=== PATIENT | male | born 1960 | race Caucasian/White ===

== ENCOUNTER 2016-09-27 05:46 | Inpatient (IN) | payer MEDICAID ==
[2016-09-27] MEDS ORDERED: ONDANSETRON DISINTEGRATING 4 MG TAB ONE (05:55)
[2016-09-27] MEDS ORDERED: ONDANSETRON 4 MG/2 ML VIAL ONE (05:56)
[2016-09-27 06:15] LABS: % IMMATURE GRANULYOCYTES 0.4 % (0.0-1.1); ABSOLUTE IMMATURE GRANULOCYTES 0.04 10^3/uL (0.00-0.10); ADD DIFF? NO; ADD MORPH? NO; ADD SCAN? NO; ATYPICAL LYMPHOCYTE FLAG 0 (0-99); FRAGMENT RBC FLAG 0 (0-99); HEMATOCRIT 40.1 % (40.0-51.0); HEMOGLOBIN 13.5 g/dL (13.7-17.5); LEFT SHIFT FLG 0 (0-99); LIPEMIA HEMOLYSIS FLAG 80 (0-99); MEAN CELL HEMOGLOBIN 27.8 pg (27.9-34.1); MEAN CELL HEMOGLOBIN CONCENTR. 33.7 g/dL (32.4-36.7); MEAN CELL VOLUME 82.7 fL (81.5-99.8); MEAN PLATELET VOLUME 10.1 fL (8.7-11.7); PLATELET CLUMPS FLAG 0 (0-99); PLATELET COUNT 222 10^3/uL (150-400); RED BLOOD CELL COUNT 4.85 10^6/uL (4.40-6.38); RED CELL DISTRIBUTION WIDTH 15.6 % (11.5-15.2)
--- NOTE | 2016-09-27 06:18 | EDPHY ---
HPI/HX/ROS/PE/MDM Narrative: Chief complaint: Vomiting, low oxygen saturations HPI: 56-year-old male with a history of CVA with significant residual deficit. Patient has a trach and a feeding tube. He was recently discharged several days ago after admission for a Proteus urinary tract infection. He is completing a course of Levaquin. Patient began having multiple episodes of vomiting this morning and dropped his oxygen saturations. He normally is on a trach collar with supplemental oxygen. He has had Zofran at 2 o'clock this morning but is continuing to have bilious emesis. Staff at group home were concerned with his vomiting and his oxygen levels. He does state he is having some increased difficulty breathing. He always has a difficulty managing his secretions and requires frequent suctioning. He has not had any fevers or chills. No chest pain. No abdominal pain. ROS: Unobtainable as the patient is nonverbal with limited communication ability. Physical exam: Gen: Awake, Alert, No Distress HEENT: Nose: no rhinorrhea Eyes: PERRLA, EOMI Mouth: Moist mucosa Neck: Tracheostomy is in place. There are copious secretions. There are rhonchorous upper respiratory sounds from his trach Chest: nontender, diminished bilaterally with bilateral coarse breath sounds Heart: S1, S2 normal, no murmur Abd: Soft, non-tender, no guarding, G-tube in place. There is no erythema or discharge Ext: no edema, non-tender Skin: no rash Neuro: CN II-XII intact, left sided flaccid paralysis at baseline in upper and lower extremities ED Course: Patient has had suctioning of his trach by ED nursing staff and by RT with copious secretions. This did cause him to have further emesis. It was bilious. There is no blood or coffee grounds. After significant suctioning oxygen saturations came up to 91% with supplemental oxygen. Patient states he is still feeling nauseated. He has gotten IV fluids and IV Zofran. Case discussed with , hospitalist. She will admit to her service for further treatment of his vomiting with possible aspiration and continued trach care. - Data Points Laboratory Results: Laboratory Results 09/27/16 06:00 09/27/16 06:00 WBC 9.83 H 10^3/uL (3.80-9.50) RBC 4.85 10^6/uL (4.40-6.38) Hgb 13.5 L g/dL (13.7-17.5) Hct 40.1 % (40.0-51.0) MCV 82.7 fL (81.5-99.8) MCH 27.8 L pg (27.9-34.1) MCHC 33.7 g/dL (32.4-36.7) RDW 15.6 H % (11.5-15.2) Plt Count 222 10^3/uL (150-400) MPV 10.1 fL (8.7-11.7) Neut % (Auto) 87.4 H % (39.3-74.2) Lymph % (Auto) 6.9 L % (15.0-45.0) Terry % (Auto) 4.4 L % (4.5-13.0) Eos % (Auto) 0.5 L % (0.6-7.6) Baso % (Auto) 0.4 % (0.3-1.7) Nucleat RBC Rel Count 0.0 % (0.0-0.2) Absolute Neuts (auto) 8.59 H 10^3/uL (1.70-6.50) Absolute Lymphs (auto) 0.68 L 10^3/uL (1.00-3.00) Absolute Monos (auto) 0.43 10^3/uL (0.30-0.80) Absolute Eos (auto) 0.05 10^3/uL (0.03-0.40) Absolute Basos (auto) 0.04 10^3/uL (0.02-0.10) Absolute Nucleated RBC 0.00 10^3/uL (0-0.01) Immature Gran % 0.4 % (0.0-1.1) Immature Gran # 0.04 10^3/uL (0.00-0.10) Sodium Pending Potassium Pending Chloride Pending Carbon Dioxide Pending Anion Gap Pending BUN Pending Creatinine Pending Estimated GFR Pending Glucose Pending Calcium Pending General Time Seen by Provider: 09/27/16 06:01 Initial Vital Signs: Initial Vital Signs Temperature (C) 36.7 C 09/27/16 05:46 Heart Rate 68 09/27/16 05:46 Respiratory Rate 22 H 09/27/16 05:46 Blood Pressure 136/100 H 09/27/16 05:46 O2 Sat (%) 77 L 09/27/16 05:46 O2 Delivery Mode Blowby O2 (L/minute) 15 Allergies/Adverse Reactions: No Known Allergies Allergy (Verified 09/27/16 06:02) Home Medications: Medication Instructions Recorded ACETAMINOPHEN 20 ml TUBE Q4H PRN 09/19/16 ALPRAZolam [Xanax 0.25 MG (*)] 0.25 mg TUBE HS 09/19/16 Atorvastatin Calcium [Lipitor 40 40 mg TUBE DAILY 09/19/16 mg (*)] Dextran 70/Hypromellose 1 each OP QID 09/19/16 [Artificial Tears] Doxazosin Mesylate [Cardura 1 MG 1 mg TUBE DAILY 09/19/16 (*)] Guaifenesin [Child Mucinex Chest 400 mg TUBE TID 09/19/16 Congestion] HEPARIN SODIUM,PORCINE [HEPARIN 5,000 unit SQ BID 09/19/16 SODIUM] Lactulose 20 gm TUBE TID PRN 09/19/16 Melatonin [Melatonin 3 MG (*)] 3 mg TUBE HS 09/19/16 Polyethylene Glycol 3350 [Miralax 17 gm TUBE DAILY 09/19/16 17 gm (*)] Ranitidine HCl 150 mg TUBE BID 09/19/16 Scopolamine Hydrobromide 1.5 mg TD Q72H 09/19/16 [Transderm-Scop] Senna Syrup 5 ml TUBE BID 09/19/16 Sertraline HCl [Zoloft 20mg/ml 7.5 ml TUBE DAILY 09/19/16 oral liquid] Zofran Solution 4 mg TUBE Q8H PRN 09/19/16 oxyCODONE IR [Oxycodone Ir (*)] 5 mg TUBE Q4H PRN 09/19/16 Ipratropium/Albuterol [Duoneb (*)] 3 ml IH QID #30 deyvial 09/22/16 Scopolamine Hydrobromide 1.5 mg TD Q72H #0 patch 09/22/16 [Transderm-Scop] levOFLOXACIN [levAQUIN (*)] 750 mg TUBE DAILY AT 10AM #6 tab 09/22/16 Departure - Departure Disposition: [facility] Clinical Impression: Vomiting, Hypoxia, Tracheostomy complication Condition: Fair
[2016-09-27 06:27] LABS: ANION GAP 11 mEq/L (8-16); CALCIUM 9.7 mg/dL (8.5-10.4); CARBON DIOXIDE 34 mEq/l (22-31); CHLORIDE 97 mEq/L (97-110); CREATININE 0.6 mg/dL (0.7-1.3); GLOMERULAR FILTRATION RATE > 60; GLUCOSE 140 mg/dL (70-100); POTASSIUM 4.7 mEq/L (3.5-5.2); SODIUM 142 mEq/L (134-144)
[2016-09-27] MEDS ORDERED: ACETAMINOPHEN 325 MG TAB PO PRN (07:06)
[2016-09-27] MEDS ORDERED: ONDANSETRON DISINTEGRATING 4 MG TAB PO PRN (07:06)
[2016-09-27] MEDS ORDERED: ONDANSETRON 4 MG/2 ML VIAL IVP PRN (07:06)
[2016-09-27 07:20] LABS: BILIRUBIN,TOTAL 0.6 mg/dL (0.1-1.4); BILIRUBIN-CONJUGATED 0.3 mg/dL (0.0-0.5); BILIRUBIN-UNCONJUGATED 0.3 mg/dL (0.0-1.1); TOTAL PROTEIN 7.5 g/dL (6.3-8.2)
--- NOTE | 2016-09-27 07:38 | PDGENHP ---
History and Physical - Chief Complaint vomiting - History of Present Illness Pt is 56/M with h/o intracranial hemorrhage with residual hemiparesis with trach /peg, chronic indwelling rader, chronic dysphagia, HTN, BPH and recent admission to [facility] (09/19-09/22) for sepsis secondary to UTI who presents again from SNF ([facility]) for hypoxia, nausea and vomiting. Apparently throughout the night, patient was vomiting, then became tachypneic and hypoxic so he was sent to the ED for further evaluation. Pt had not been febrile in SNF. Vomitus did appear brown-ruel in color, no bright red blood. Upon arrival to the ED, pt was afebrile, but significantly hypoxic on trach mask (70%). He was vigorously suctioned of thick sputum and saturations eventually improved back to baseline. In addition to this respiratory distress, patient also continued to have 3 more episodes of vomiting in the ED, with vomitus appearing brown/coffee ground in color. Occult blood was sent on vomitus and has resulted positive. Labs revealed slight leukocytosis, H/H stable from previous levels, CMP including lipase wnl. He does not complain of any abdominal pain or diarrhea. He was given zofran and admitted to the hospitalist service for further management. CXR revealed opacity in RML/RUL area, consistent with an aspiration event. He was started on a PPI and abx. History Information - Allergies/Home Medication List Allergies/Adverse Reactions: No Known Allergies Allergy (Verified 09/27/16 06:02) Home Medications: ACETAMINOPHEN 20 ml TUBE Q4H PRN 09/19/16 [Last Taken Unknown] ALPRAZolam [Xanax 0.25 MG (*)] 0.25 mg TUBE HS 09/19/16 [Last Taken Unknown] Atorvastatin Calcium [Lipitor 40 mg (*)] 40 mg TUBE DAILY 09/19/16 [Last Taken Unknown] Dextran 70/Hypromellose [Artificial Tears] 1 each OP QID 09/19/16 [Last Taken Unknown] Doxazosin Mesylate [Cardura 1 MG (*)] 1 mg TUBE DAILY 09/19/16 [Last Taken Unknown] Guaifenesin [Child Mucinex Chest Congestion] 400 mg TUBE TID 09/19/16 [Last Taken Unknown] HEPARIN SODIUM,PORCINE [HEPARIN SODIUM] 5,000 unit SQ BID 09/19/16 [Last Taken Unknown] Lactulose 20 gm TUBE TID PRN 09/19/16 [Last Taken Unknown] Melatonin [Melatonin 3 MG (*)] 3 mg TUBE HS 09/19/16 [Last Taken Unknown] Polyethylene Glycol 3350 [Miralax 17 gm (*)] 17 gm TUBE DAILY 09/19/16 [Last Taken Unknown] Ranitidine HCl 150 mg TUBE BID 09/19/16 [Last Taken Unknown] Scopolamine Hydrobromide [Transderm-Scop] 1.5 mg TD Q72H 09/19/16 [Last Taken Unknown] Senna Syrup 5 ml TUBE BID 09/19/16 [Last Taken Unknown] Sertraline HCl [Zoloft 20mg/ml oral liquid] 7.5 ml TUBE DAILY 09/19/16 [Last Taken Unknown] Zofran Solution 4 mg TUBE Q8H PRN 09/19/16 [Last Taken Unknown] oxyCODONE IR [Oxycodone Ir (*)] 5 mg TUBE Q4H PRN 09/19/16 [Last Taken Unknown] I have personally reviewed and updated: family history, medical history, social history, surgical history - Past Medical History Additional medical history: Intracranial hemorrhage with residual hemiparesis, chronic respiratory failure and chronic dysphagia requiring trach/peg/chronic rader. HTN. BPH. Stage III sacral decubitus - Surgical History Reports: no pertinent surgical hx - Family History Positive for: non-pertinent - Social History Smoking Status: Former smoker Alcohol Use: None Drug Use: None Additional social history: Pt resides in [facility], requires full assistance with all ADLs. Review of Systems ROS: 10pt was reviewed & negative except for what was stated in HPI & below Physical Exam Temp Pulse Resp BP Pulse Ox 36.6 C 97 19 146/105 H 93 09/27/16 07:18 09/27/16 07:18 09/27/16 07:18 09/27/16 07:18 09/27/16 07:18 O2 (L/minute) 15 Constitutional: not in pain, chronically ill appearing, obese, other ( diaphoretic) Eyes: PERRL, anicteric sclera, EOMI Ears, Nose, Mouth, Throat: moist mucous membranes, hearing normal, no oral mucosal ulcers, other (trach in place, thick yellow sputum suctioned) Cardiovascular: no murmur, rub, or gallop, pulses symmetric bilaterally, tachycardia, No JVD, No edema Peripheral Pulses: 2+: dorsalis-pedis (R), dorsalis-pedis (L) Respiratory: rhonchi (R>L) Gastrointestinal: normoactive bowel sounds, soft, non-tender abdomen, no palpable masses, other (PEG site clean, dry, nonerythematous) Genitourinary: no bladder fullness, no bladder tenderness Skin: warm, normal color, no rashes or abrasions, no fluctuance, No mottled Neurologic: other (aphasic, other CN grossly intact; hemiparesis) Psychiatric: interacting appropriately (following simple commands appropriately) , not encephalopathic, thought process linear Lab Data & Imaging Review 09/27/16 06:00 09/27/16 06:00 WBC 9.83 10^3/uL (3.80-9.50) H 09/27/16 06:00 RBC 4.85 10^6/uL (4.40-6.38) 09/27/16 06:00 Hgb 13.5 g/dL (13.7-17.5) L 09/27/16 06:00 Hct 40.1 % (40.0-51.0) 09/27/16 06:00 MCV 82.7 fL (81.5-99.8) 09/27/16 06:00 MCH 27.8 pg (27.9-34.1) L 09/27/16 06:00 MCHC 33.7 g/dL (32.4-36.7) 09/27/16 06:00 RDW 15.6 % (11.5-15.2) H 09/27/16 06:00 Plt Count 222 10^3/uL (150-400) 09/27/16 06:00 MPV 10.1 fL (8.7-11.7) 09/27/16 06:00 Neut % (Auto) 87.4 % (39.3-74.2) H 09/27/16 06:00 Lymph % (Auto) 6.9 % (15.0-45.0) L 09/27/16 06:00 Rutherford % (Auto) 4.4 % (4.5-13.0) L 09/27/16 06:00 Eos % (Auto) 0.5 % (0.6-7.6) L 09/27/16 06:00 Baso % (Auto) 0.4 % (0.3-1.7) 09/27/16 06:00 Nucleat RBC Rel Count 0.0 % (0.0-0.2) 09/27/16 06:00 Absolute Neuts (auto) 8.59 10^3/uL (1.70-6.50) H 09/27/16 06:00 Absolute Lymphs (auto) 0.68 10^3/uL (1.00-3.00) L 09/27/16 06:00 Absolute Monos (auto) 0.43 10^3/uL (0.30-0.80) 09/27/16 06:00 Absolute Eos (auto) 0.05 10^3/uL (0.03-0.40) 09/27/16 06:00 Absolute Basos (auto) 0.04 10^3/uL (0.02-0.10) 09/27/16 06:00 Absolute Nucleated RBC 0.00 10^3/uL (0-0.01) 09/27/16 06:00 Immature Gran % 0.4 % (0.0-1.1) 09/27/16 06:00 Immature Gran # 0.04 10^3/uL (0.00-0.10) 09/27/16 06:00 Sodium 142 mEq/L (134-144) 09/27/16 06:00 Potassium 4.7 mEq/L (3.5-5.2) 09/27/16 06:00 Chloride 97 mEq/L (97-110) 09/27/16 06:00 Carbon Dioxide 34 mEq/l (22-31) H 09/27/16 06:00 Anion Gap 11 mEq/L (8-16) 09/27/16 06:00 BUN 19 mg/dL (7-23) 09/27/16 06:00 Creatinine 0.6 mg/dL (0.7-1.3) L 09/27/16 06:00 Estimated GFR > 60 09/27/16 06:00 Glucose 140 mg/dL (70-100) H 09/27/16 06:00 Calcium 9.7 mg/dL (8.5-10.4) 09/27/16 06:00 Total Bilirubin 0.6 mg/dL (0.1-1.4) 09/27/16 06:00 Conjugated Bilirubin 0.3 mg/dL (0.0-0.5) 09/27/16 06:00 Unconjugated Bilirubin 0.3 mg/dL (0.0-1.1) 09/27/16 06:00 AST 16 IU/L (17-59) L 09/27/16 06:00 ALT 27 IU/L (21-72) 09/27/16 06:00 Alkaline Phosphatase 113 IU/L (38-126) 09/27/16 06:00 Total Protein 7.5 g/dL (6.3-8.2) 09/27/16 06:00 Albumin 4.0 g/dL (3.5-5.0) 09/27/16 06:00 Lipase 22.0 IU/L (23-300) L 09/27/16 06:00 Gastric Occult Blood Cancelled 09/27/16 06:00 Stool Occult Bld Scrn POSITIVE (NEGATIVE) H 09/27/16 06:00 Visualized and Interpreted Chest x-ray results: Yes Chest X-Ray results: other (R-sided infiltrate (upper vs middle lobe)) Assessment & Plan Assessment: Pt is 56/M with remote h/o ICH, SDH, with residual R hemiparesis, chronic respiratory failure, chronic dysphagia, recent admission for sepsis due to UTI ( completed course of levaquin) who presents to the ED with nausea, vomiting and hypoxia, with presumed aspiration. Plan: # acute on chronic hypoxic respiratory failure Per SNF report, pt had multiple episodes of vomiting and then became hypoxic. On presentation, pt was significantly hypoxic, which improved back to baseline with aggressive suctioning of trach. CXR shows new r-sided infiltrate, consistent with an aspiration event. - maintain trach collar O2 support - ertapenem for aspiration coverage - obtain sputum culture # nausea, vomiting, upper gi bleed Patient hemodynamically stable, H/H stable, appears to be small volume. Lipase, LFTs wnl. - PPI 40 mg IV BID - zofran prn - monitor cbc - consult GI # intracranial hemorrhage, chronic hemiparesis Stable neuro status. Cont home med regimen. # HTN BP stable, cont home meds. # BPH, chronic indwelling rader, recent uti Cont rader, urine does not appear dirty. Will recheck UA. # dispo: admit to inpt service > 2MN stay # gen: npo, consult dietary DVT ppx: lovenox Full code
[2016-09-27] MEDS: PANTOPRAZOLE SODIUM 40 MG in NS 100 ML IV SCH ×3 (08:09→21:49)
--- NOTE | 2016-09-27 08:27 | DX ---
AP Portable Chest September 27, 2016 Clinical Indication: Shortness of breath, tachycardia, and increased secretions. Comparison: September 19, 2016. Findings: Tracheostomy is unchanged in the upper trachea. Lungs are mildly hypoventilated with some b asilar atelectatic changes. Heart size is upper limits of normal. Bones exhibit moderate degenerative changes of the shoulders. Impression: Patchy bilateral basilar atelectatic changes minimally increased from 7 days prior.
[2016-09-27] MEDS ORDERED: ERTAPENEM 1 GM in NS 100 ML IV SCH (09:00)
[2016-09-27] MEDS ORDERED: ENOXAPARIN 40 MG/0.4 ML SYR SC SCH (09:00)
[2016-09-27] MEDS ORDERED: ACETAMINOPHEN 650 MG/20.3 ML UDCUP TUBE PRN (09:07)
[2016-09-27] MEDS ORDERED: [UNRECOGNIZED DRUG - OTHER] TUBE PRN (09:07)
[2016-09-27] MEDS ORDERED: VANCOMYCIN 1.5 GM in D5W 250 ML IV SCH (09:30)
[2016-09-27] MEDS: PIPERACILLIN/TAZO 4.5 GM/DEX 100 ML IV SCH ×3 (09:34→18:18)
[2016-09-27] MEDS ORDERED: oxyCODONE IR 5 MG TAB TUBE PRN (09:58)
[2016-09-27] MEDS ORDERED: SENNOSIDES 17.6 MG/10 ML UDL TUBE PRN (10:00)
[2016-09-27] MEDS ORDERED: ONDANSETRON DISINTEGRATING 4 MG TAB TUBE PRN (10:01)
[2016-09-27 10:28] LABS: COLOR YELLOW; LEUKOCYTE ESTERASE,URINE 1+ (NEGATIVE); NITRITE,URINE NEGATIVE (NEGATIVE)
--- NOTE | 2016-09-27 10:31 | HOSPPROG ---
Hospitalist Progress Note Assessment/Plan: Prolonged service, direct patient care, face to face w/ patient at bedside from 9:05 - 9:40 a.m. (35 mins), addressing the following: -ongoing emesis this AM w/ brown and possible coffee-ground appearing material, raising concerns of possible GI bleed -discussed with Gastroenterology, will treat with PPI therapy, clear liquid diet , monitor at the present time and hold off on EGD in less worsening -treat for suspected aspiration pneumonia and in particular healthcare associated organisms with Vanco and Zosyn, monitoring CBC -discussed with respiratory therapy, continue to copiously suction pulmonary secretions -continue home monitor and aggressively treat nausea -patient warrants step-down unit level care Subjective: Reports he has some residual nausea located in the left hemidiaphragm, no abdominal pain Objective: Vital Signs Temp Pulse Resp BP Pulse Ox 36.8 C 82 18 128/89 H 97 09/27/16 07:49 09/27/16 07:49 09/27/16 07:49 09/27/16 07:49 09/27/16 07:49 09/26/16 09/27/16 09/28/16 05:59 05:59 05:59 Intake Total 500 Balance 500 - Physical Exam Constitutional: not in pain, chronically ill appearing, uncomfortable Cardiovascular: regular rate and rhythym, no murmur, rub, or gallop Respiratory: rhonchi (On inspiration and expiration), No reduced air movement, No expiratory wheeze Gastrointestinal: normoactive bowel sounds, soft, non-tender abdomen, no palpable masses ICD10 Worksheet Patient Problems: Problems Problem Status Diagnosed Acute bronchitis Acute Hematemesis Acute Hypoxia Acute Tracheostomy complication Acute Vomiting Acute Constipation Acute Cough Acute DVT (deep venous thrombosis) Acute Decubitus skin ulcer Acute Fall from bed, initial encounter Acute Fever Acute Laceration of forehead Acute Nutrition disorder Acute Pneumonia Acute Respiratory distress Acute Subarachnoid hemorrhage following injury Acute Subdural hemorrhage Acute Tachycardia Acute
[2016-09-27 10:42] LABS: AMORPHOUS PRESENT /hpf (NONE-1+); MUCUS 2+ /lpf (NONE-1+); RBC,URINE 50-182 /hpf (0-3)
[2016-09-27] MEDS: VANCOMYCIN 1.5 GM in D5W 250 ML IV SCH ×2 (11:05→23:03)
--- NOTE | 2016-09-27 11:06 | CPEKG ---
Heart Rate: 100 RR Interval: 600 P-R Interval: 164 QRSD Interval: 100 QT Interval: 348 QTC Interval: 449 P Clayton: 52 QRS Clayton: 29 T Wave Clayton: 23 EKG Severity - OTHERWISE NORMAL ECG - EKG Impression: SINUS TACHYCARDIA Electronically Signed By: Lazaro Willard 27-Sep-2016 21:09:51
[2016-09-27] MEDS: IPRATROPIUM/ALBUTEROL 3 ML DEYVIAL IH SCH ×3 (11:51→20:43)
[2016-09-27] MEDS ORDERED: TEARS/DEXTRAN 70/HYPROMELLOSE 15 ML OPHT.BTL EACHEYE PRN (12:00)
--- NOTE | 2016-09-27 12:37 | WOCRNPDOC ---
WOCRN Advanced Assessment Note - Skin Integrity Problem, Advanced Assess Bilateral Sacrum Pressure Injury Dressing Type: Allevyn Life Dressing Description: Intact Exudate Amount: Scant Exudate Color: Reddish/Yellow Exudate Characteristic(s): Serosanguinous Integumentary Issue Intervention: Dressing Applied Whitney Wound Tissue: Blanching, Erythema, Raw, Denuded, Scarred Whitney Wound Swelling: Mild Wound Bed Color: Red Wound Bed Constitution: Smooth Tissue Site Odor: None Site Measurement - Head-to-Toe Length X Width X Depth (cm): L sacrum: [id number]; R sacrum: 2cmx1.2cmx0.1cm Pressure Injury Stage: Stage 2 Pressure Injury Present on Admit: Yes Skin Integrity Problem Comment: Patient has partial-thickness tissue loss to both his R and L sacrum, consistent in appearance with a combination of stage II pressure injury and incontinence-associated dermatitis. Wound beds are a mixture of smooth tissue and scabs, w/ raw and denuded whitney-wound skin. Alfaro catheter placed upon admission, which should help mitigate the IAD. Hydrogel applied to wound beds, and site covered w/ an Allevyn Life sacral dressing. Patient is currently on a pressure-relieving Sport bed. Orders for turns q.2 side to side initiated.
--- NOTE | 2016-09-27 12:57 | GCON ---
[f rep st] CONSULTATION INTENSIVE CARE CONSULTATION. REASON FOR ADMISSION: Nausea and vomiting, increased secretions. HISTORY OF PRESENT ILLNESS: The patient is an unfortunate 56-year-old white male with a history of i ntracranial hemorrhage. He has undergone trach and PEG. He has a chronic indwelling Alfaro. He pres ents from [facility] with increased vomiting. His vomitus was brownish in color, but no bright red blood. He was also markedly hypoxemic while in the emergency room. Initially, he was admitted to he floor and was subsequently transferred to the intensive care unit, as the patient required an incr eased level of care. The patient nods his head yes and no. All history is mostly gleaned from the edical record. He was recently discharged from [facility] last month. PAST MEDICAL HISTORY: Again, for intracerebral hemorrhage. He has significant hemiparesis, chronic respiratory failure, and chronic dysphagia. He has a history of a trach, PEG, and chronic Alfaro. He also has a stage 3 sacral decubitus ulcer. Hypertension. ALLERGIES: No known allergies to medications. SOCIAL HISTORY: Previous smoker. No significant alcohol use. He resides at [facility]. He requi res full assistance. PHYSICAL EXAMINATION: VITAL SIGNS: Blood pressure is 128/89, pulse 82, respiration 18, temperature 36.8, oxygen saturation 97% on 15 L trach collar. GENERAL: He is a well-developed, 56-year-old, whi te male, who is resting comfortably. HEENT: Eyes are SANTO, EOMI. Throat shows no erythema or tonsi llar hypertrophy. NECK: Supple. Tracheostomy tube site is clean and dry. HEART: Regular rate and rhythm with a 2/6 systolic murmur at the left sternal border without radiation. LUNGS: Diffuse rho nchi in all lung wahl. There are no E to A changes. There is no wheeze. ABDOMEN: Soft, nontende r. Bowel sounds present in all 4 quadrants. PEG tube site is clean and dry. EXTREMITIES: No clubb ing, cyanosis, or edema. LABORATORIES: White count is 9.8, hemoglobin 13, hematocrit 40, platelet count 222, sodium 142, pota ssium 4.7, chloride 97, CO2 is 34, BUN is 19, creatinine 0.6, glucose 140. Urinalysis: pH 6, specific gravity 1.020, 50-182 RBCs, 5-10 WBCs. Stool for occult blood is positive. A chest x-ray shows patc hy bibasilar atelectasis with tracheostomy. IMPRESSION: 1. Nausea and vomiting, mild upper gastrointestinal bleed, H and H is currently stable. 2. History of intracranial hemorrhage. 3. History of tracheostomy. 4. Acute on chronic respiratory failure with copious amounts of secretions. No evidence of pneumoni a at this time. 5. Hypertension. RECOMMENDATIONS: 1. Aggressive respiratory toilet. Will add a vest as well as Mucomyst nebs to his current regime. 2. Agree with Zofran and a proton pump inhibitor. 3. Follow H and H closely. 4. DVT and PE prophylaxis. 5. Adequate blood pressure control. /[id number]/MODL
[2016-09-27] MEDS: ACETYLCYSTEINE 20% IH SCH ×3 (13:18→20:43)
[2016-09-27] MEDS: SERTRALINE HCL 50 MG TAB TUBE SCH (14:49)
[2016-09-27] MEDS ORDERED: ACETYLCYSTEINE 20% IH/PO 30 ML VIAL IH SCH (18:00)
[2016-09-27] MEDS ORDERED: RANITIDINE HCL 150 MG/10 ML UDCUP TUBE SCH (20:00)
[2016-09-27] MEDS: ALPRAZolam 0.25 MG TAB TUBE SCH (21:48)
[2016-09-27] MEDS: ATORVASTATIN CALCIUM 40 MG TAB TUBE SCH (21:48)
[2016-09-27] MEDS: FAMOTIDINE 20 MG TAB TUBE SCH (21:48)
[2016-09-27] MEDS: MELATONIN 3 MG TAB TUBE SCH (21:49)
[2016-09-27] MEDS: DOXAZOSIN MESYLATE 1 MG TAB TUBE SCH (21:50)
[2016-09-28] MEDS: PIPERACILLIN/TAZO 4.5 GM/DEX 100 ML IV SCH ×4 (01:11→17:15)
[2016-09-28] MEDS: IPRATROPIUM/ALBUTEROL 3 ML DEYVIAL IH SCH ×4 (05:29→20:03)
[2016-09-28] MEDS: ACETYLCYSTEINE 20% IH SCH ×4 (05:29→20:03)
[2016-09-28 06:11] LABS: % IMMATURE GRANULYOCYTES 0.4 % (0.0-1.1); ABSOLUTE IMMATURE GRANULOCYTES 0.02 10^3/uL (0.00-0.10); ADD DIFF? NO; ADD MORPH? NO; ADD SCAN? NO; ATYPICAL LYMPHOCYTE FLAG 20 (0-99); FRAGMENT RBC FLAG 0 (0-99); HEMATOCRIT 29.8 % (40.0-51.0); HEMOGLOBIN 9.9 g/dL (13.7-17.5); LEFT SHIFT FLG 0 (0-99); LIPEMIA HEMOLYSIS FLAG 80 (0-99); MEAN CELL HEMOGLOBIN CONCENTR. 33.2 g/dL (32.4-36.7); MEAN CELL VOLUME 84.2 fL (81.5-99.8); MEAN PLATELET VOLUME 9.8 fL (8.7-11.7); PLATELET CLUMPS FLAG 0 (0-99); PLATELET COUNT 183 10^3/uL (150-400); RED BLOOD CELL COUNT 3.54 10^6/uL (4.40-6.38); RED CELL DISTRIBUTION WIDTH 15.8 % (11.5-15.2)
[2016-09-28 06:22] LABS: INR 1.15 (0.83-1.16); PROTIME(PATIENT) 14.7 SEC (12.0-15.0)
[2016-09-28 06:23] LABS: APTT 32.8 SEC (23.0-38.0)
[2016-09-28 06:44] LABS: ANION GAP 7 mEq/L (8-16); CALCIUM 8.4 mg/dL (8.5-10.4); CARBON DIOXIDE 37 mEq/l (22-31); CHLORIDE 99 mEq/L (97-110); CREATININE 0.7 mg/dL (0.7-1.3); GLOMERULAR FILTRATION RATE > 60; GLUCOSE 105 mg/dL (70-100); SODIUM 143 mEq/L (134-144)
[2016-09-28] MEDS ORDERED: SERTRALINE HCL TUBE SCH (08:00)
--- NOTE | 2016-09-28 09:19 | PDINTPN ---
Psychiatric Lpn Progress Note Assessment/Plan: Assessment: * S/P intracerebral hemorrhage * S/P trach-secretions markedly improved * N/V-resolved * Diarrhea-resolved * Sacral decub * HTN Plan: Markedly better Okay for floor Subjective: Awake Objective: Vital Signs Temp Pulse Resp BP Pulse Ox 36.8 C 55 L 14 84/50 L 93 09/28/16 07:50 09/28/16 07:50 09/28/16 07:50 09/28/16 07:50 09/28/16 07:50 Microbiology 09/27/16 11:40 - Final Sputum, Induced/Suctioned Laboratory Results 09/28/16 05:55 09/28/16 05:55 09/27/16 09/28/16 09/29/16 05:59 05:59 05:59 Intake Total 2002 Output Total 750 Balance 1252 PT 14.7 SEC (12.0-15.0) 09/28/16 05:55 INR 1.15 (0.83-1.16) 09/28/16 05:55 Physical Exam - Physical Exam General Appearance: alert, other (awake) EENT: PERRL/EOMI, normal ENT inspection Neck: non-tender, other (trach) Respiratory: rhonchi (few), No stridor, No wheezing Cardiac/Chest: normal peripheral pulses, regular rate, rhythm, systolic murmur Peripheral Pulses: 2+: carotid (R), carotid (L), femoral (R), femoral (L), dorsalis-pedis (R), dorsalis-pedis (L) Abdomen: normal bowel sounds, non-tender, soft Male Genitalia: deferred Rectal: deferred Skin: normal color, warm/dry Extremities: non-tender Neuro/Psych: alert ICD10 Worksheet Patient Problems: Problems Problem Status Diagnosed Acute bronchitis Acute Hematemesis Acute Hypoxia Acute Tracheostomy complication Acute Vomiting Acute Constipation Acute Cough Acute DVT (deep venous thrombosis) Acute Decubitus skin ulcer Acute Fall from bed, initial encounter Acute Fever Acute Laceration of forehead Acute Nutrition disorder Acute Pneumonia Acute Respiratory distress Acute Subarachnoid hemorrhage following injury Acute Subdural hemorrhage Acute Tachycardia Acute
[2016-09-28] MEDS: FAMOTIDINE 20 MG TAB TUBE SCH ×2 (09:43→22:35)
[2016-09-28] MEDS: SERTRALINE HCL 50 MG TAB TUBE SCH (09:43)
[2016-09-28] MEDS: PANTOPRAZOLE SODIUM 40 MG in NS 100 ML IV SCH ×2 (09:43→22:35)
[2016-09-28] MEDS: VANCOMYCIN 1.5 GM in D5W 250 ML IV SCH ×2 (09:43→23:22)
--- NOTE | 2016-09-28 16:23 | HOSPPROG ---
Hospitalist Progress Note Assessment/Plan: Assessment: 56-year-old male presents with aspiration pneumonia in the setting of acute vomiting Plan: 1. Aspiration pneumonia. Evidenced by infiltrates on chest x-ray plus respiratory symptoms and leukocytosis, in the setting of recent hospitalizations - suspected gram-negative rods, possible Pseudomonas, possible MR assay - treat empirically, continue day 2 of vancomycin and Zosyn - sputum culture currently growing gram-negative rods and Staph aureus, awaiting speciation and sensitivities - appreciate pulmonary consultation, Dr. Dodd advises that the patient's respiratory status has stabilized and he is safe for transfer to the [facility] floor 2. Vomiting. Acute, occult blood positive, possibly secondary to [place]-Hull tear - continue symptomatic medications - no vomiting this afternoon 3. Acute on chronic hypoxic respiratory failure. Evidenced by an SpO2 of 77% plus objective tachypnea plus symptomatic shortness of breath and visibly labored breathing with copious secretions, most likely secondary to his aspiration pneumonia - patient required care in the step-down unit for aggressive respiratory therapy and suctioning of copious secretions - continue patient on trach mask 4. Chronic hypertension. Patient currently not requiring his antihypertensive medications in the setting of infection, continue to monitor 5. Hemiparesis. Chronic, secondary to intracranial hemorrhage, patient requires significant daily care with trach and PEG, he is able to communicate with board 6. BPH. Chronic, has indwelling Alfaro catheter, no evidence of urinary tract infection on UA 7. Stage II sacral decubitus ulcers. Present on arrival, seen in consultation by wound care, continue wound care consultation Diet. Tube feeds Prophylaxis. High risk patient, Lovenox 40 Code. Full Disposition. Anticipated discharge uncertain this time, patient remains clinically unresolved with ongoing aspiration pneumonia and awaiting speciation of sputum culture results to guide further antibiotic treatment. Subjective: Patient reports that he is feeling somewhat better today, no nausea or vomiting Objective: Vital Signs Temp Pulse Resp BP Pulse Ox 36.9 C 66 18 109/60 92 09/28/16 16:00 09/28/16 16:00 09/28/16 16:00 09/28/16 16:00 09/28/16 16:00 Microbiology 09/27/16 11:40 - Final Sputum, Induced/Suctioned Laboratory Results 09/28/16 05:55 09/28/16 05:55 09/27/16 09/28/16 09/29/16 05:59 05:59 05:59 Intake Total 2001 Output Total 750 Balance 1252 PT 14.7 SEC (12.0-15.0) 09/28/16 05:55 INR 1.15 (0.83-1.16) 09/28/16 05:55 - Physical Exam Constitutional: no apparent distress, not in pain, chronically ill appearing, No uncomfortable Cardiovascular: regular rate and rhythym, no murmur, rub, or gallop, No irregularly irregular, No edema Respiratory: rhonchi ( on inspiration bilaterally), other ( trach in place), No reduced air movement, No expiratory wheeze, No bronchial breath sounds Gastrointestinal: normoactive bowel sounds, soft, non-tender abdomen, no palpable masses, No distension Neurologic: other ( using speech board for language) Psychiatric: interacting appropriately, not anxious, not encephalopathic, No agitated ICD10 Worksheet Patient Problems: Problems Problem Status Diagnosed Acute bronchitis Acute Hematemesis Acute Hypoxia Acute Tracheostomy complication Acute Vomiting Acute Constipation Acute Cough Acute DVT (deep venous thrombosis) Acute Decubitus skin ulcer Acute Fall from bed, initial encounter Acute Fever Acute Laceration of forehead Acute Nutrition disorder Acute Pneumonia Acute Respiratory distress Acute Subarachnoid hemorrhage following injury Acute Subdural hemorrhage Acute Tachycardia Acute
[2016-09-28] MEDS ORDERED: BISACODYL 10 MG SUPP PR PRN (16:28)
[2016-09-28] MEDS ORDERED: MAGNESIUM HYDROXIDE 30 ML UDCUP TUBE PRN (16:28)
[2016-09-28] MEDS ORDERED: LACTULOSE 20 GM/30 ML UDCUP TUBE PRN (16:28)
[2016-09-28] MEDS: ALPRAZolam 0.25 MG TAB TUBE SCH (22:35)
[2016-09-28] MEDS: DOXAZOSIN MESYLATE 1 MG TAB TUBE SCH (22:35)
[2016-09-28] MEDS: ATORVASTATIN CALCIUM 40 MG TAB TUBE SCH (22:35)
[2016-09-28] MEDS: SENNOSIDES 17.6 MG/10 ML UDL PO SCH (22:35)
[2016-09-28] MEDS: MELATONIN 3 MG TAB TUBE SCH (22:35)
[2016-09-29] MEDS: PIPERACILLIN/TAZO 4.5 GM/DEX 100 ML IV SCH ×4 (00:45→17:59)
[2016-09-29] MEDS: ACETYLCYSTEINE 20% IH SCH ×4 (05:17→20:31)
[2016-09-29] MEDS: IPRATROPIUM/ALBUTEROL 3 ML DEYVIAL IH SCH ×4 (05:17→20:31)
[2016-09-29 06:37] LABS: % IMMATURE GRANULYOCYTES 0.5 % (0.0-1.1); ABSOLUTE IMMATURE GRANULOCYTES 0.02 10^3/uL (0.00-0.10); ADD DIFF? NO; ADD MORPH? NO; ADD SCAN? NO; ATYPICAL LYMPHOCYTE FLAG 20 (0-99); FRAGMENT RBC FLAG 0 (0-99); HEMATOCRIT 30.5 % (40.0-51.0); HEMOGLOBIN 10.1 g/dL (13.7-17.5); LEFT SHIFT FLG 0 (0-99); LIPEMIA HEMOLYSIS FLAG 80 (0-99); MEAN CELL HEMOGLOBIN 27.8 pg (27.9-34.1); MEAN CELL HEMOGLOBIN CONCENTR. 33.1 g/dL (32.4-36.7); MEAN PLATELET VOLUME 9.6 fL (8.7-11.7); PLATELET CLUMPS FLAG 0 (0-99); PLATELET COUNT 178 10^3/uL (150-400); RED BLOOD CELL COUNT 3.63 10^6/uL (4.40-6.38); RED CELL DISTRIBUTION WIDTH 15.9 % (11.5-15.2)
[2016-09-29 06:57] LABS: ANION GAP 7 mEq/L (8-16); CALCIUM 8.6 mg/dL (8.5-10.4); CARBON DIOXIDE 35 mEq/l (22-31); CHLORIDE 100 mEq/L (97-110); CREATININE 0.6 mg/dL (0.7-1.3); GLOMERULAR FILTRATION RATE > 60; GLUCOSE 121 mg/dL (70-100); SODIUM 142 mEq/L (134-144)
[2016-09-29] MEDS: SERTRALINE HCL 50 MG TAB TUBE SCH (09:48)
[2016-09-29] MEDS: PANTOPRAZOLE SODIUM 40 MG in NS 100 ML IV SCH ×2 (09:49→21:57)
[2016-09-29] MEDS: FAMOTIDINE 20 MG TAB TUBE SCH ×2 (09:49→19:59)
[2016-09-29] MEDS: SENNOSIDES 17.6 MG/10 ML UDL PO SCH ×2 (09:50→21:57)
[2016-09-29] MEDS: VANCOMYCIN 1.5 GM in D5W 250 ML IV SCH ×2 (09:50→23:59)
[2016-09-29] MEDS: SCOPOLAMINE HYDROBROMIDE 1.5 MG PATCH TD SCH (09:50)
--- NOTE | 2016-09-29 12:48 | HOSPPROG ---
Hospitalist Progress Note Assessment/Plan: Assessment: 56-year-old male presents with aspiration pneumonia in the setting of acute vomiting Plan: 1. Aspiration pneumonia. Evidenced by infiltrates on chest x-ray (personally interpreted) plus respiratory symptoms and leukocytosis, in the setting of recent hospitalizations - suspected gram-negative rods, possible Pseudomonas, possible MRSA - treat empirically, continue day 3 of vancomycin and Zosyn - sputum culture currently growing gram-negative rods and Staph aureus, awaiting speciation and sensitivities to potentially narrow Abx 2. Vomiting. Acute, occult blood positive, possibly secondary to [place]-H[place] tear - continue symptomatic medications - no vomiting this afternoon 3. Acute on chronic hypoxic respiratory failure. Evidenced by an SpO2 of 77% plus objective tachypnea plus symptomatic shortness of breath and visibly labored breathing with copious secretions, most likely secondary to his aspiration pneumonia - patient required care in the step-down unit for aggressive respiratory therapy and suctioning of copious secretions, now stablized to med surg status - continue patient on trach mask 4. Chronic hypertension. Patient currently not requiring his antihypertensive medications in the setting of infection, continue to monitor 5. Hemiparesis. Chronic, secondary to intracranial hemorrhage, patient requires significant daily care with trach and PEG, he is able to communicate with board 6. BPH. Chronic, has indwelling Alfaro catheter, no evidence of urinary tract infection on UA 7. Stage II sacral decubitus ulcers. Present on arrival, seen in consultation by wound care, continue wound care consultation Diet. Tube feeds Prophylaxis. High risk patient, Lovenox 40 Code. Full Disposition. Anticipated discharge 09/30, patient remains clinically unresolved with ongoing aspiration pneumonia and awaiting speciation of sputum culture results to guide further antibiotic treatment. Subjective: Patient reports no abdominal pain, no nausea or vomiting Objective: Vital Signs Temp Pulse Resp BP Pulse Ox 37.4 C 64 18 101/57 L 94 09/29/16 07:45 09/29/16 11:19 09/29/16 11:19 09/29/16 07:45 09/29/16 11:19 Microbiology 09/27/16 11:40 - Final Sputum, Induced/Suctioned Laboratory Results 09/29/16 06:20 09/29/16 06:20 09/28/16 09/29/16 09/30/16 05:59 05:59 05:59 Intake Total 20010 Output Total 750 1400 Balance 1252 1540 PT 14.7 SEC (12.0-15.0) 09/28/16 05:55 INR 1.15 (0.83-1.16) 09/28/16 05:55 - Physical Exam Constitutional: no apparent distress, not in pain, chronically ill appearing, No uncomfortable Cardiovascular: systolic murmur (106 at the left sternal border), No irregularly irregular, No tachycardia, No edema Respiratory: rhonchi (On inspiration bilaterally, less than on day prior), No reduced air movement, No expiratory wheeze, No bronchial breath sounds Gastrointestinal: normoactive bowel sounds, soft, non-tender abdomen, no palpable masses, other (Peg tube in place) Neurologic: other (Patient able to use communication board, has visible dysmetria and weakness in his bilateral hands, patient is oriented to date/time location and cell) ICD10 Worksheet Patient Problems: Problems Problem Status Diagnosed Acute bronchitis Acute Hematemesis Acute Hypoxia Acute Tracheostomy complication Acute Vomiting Acute Constipation Acute Cough Acute DVT (deep venous thrombosis) Acute Decubitus skin ulcer Acute Fall from bed, initial encounter Acute Fever Acute Laceration of forehead Acute Nutrition disorder Acute Pneumonia Acute Respiratory distress Acute Subarachnoid hemorrhage following injury Acute Subdural hemorrhage Acute Tachycardia Acute
--- NOTE | 2016-09-29 14:46 | DX ---
Portable Chest, Single View September 29, 2016 14:30 Indication: Shortness of breath. Right way for CHF and pneumonia. Comparison: Portable chest dated September 27, 2016 Findings: Lungs are hypoventilated. New patchy groundglass opacities have developed in the right base and new linear atelectasis has developed in the left base. Pulmonary vasculature within normal limit . No effusion. Heart size normal for portable technique. The tracheostomy tube and a colostomy shunt tubing overlying the right chest wall are unchanged. Impression: 1. No CHF. 2. New right basilar atelectasis versus evolving pneumonia or aspiration.
--- NOTE | 2016-09-29 15:00 | PDINTPN ---
Food Porter Progress Note Assessment/Plan: Assessment: * S/P intracerebral hemorrhage * S/P trach- * Bronchorrhea- secretions have worsened. No clear cause * N/V-resolved * Diarrhea-resolved * Sacral decub * HTN Plan: Continue Scopolamine patch Consider SQ octreotide Subjective: Awake Objective: Vital Signs Temp Pulse Resp BP Pulse Ox 37.4 C 64 18 101/57 L 94 09/29/16 07:45 09/29/16 11:19 09/29/16 11:19 09/29/16 07:45 09/29/16 11:19 Microbiology 09/27/16 11:40 - Final Sputum, Induced/Suctioned Laboratory Results 09/29/16 06:20 09/29/16 06:20 09/28/16 09/29/16 09/30/16 05:59 05:59 05:59 Intake Total 20010 Output Total 750 1400 Balance 1252 1540 PT 14.7 SEC (12.0-15.0) 09/28/16 05:55 INR 1.15 (0.83-1.16) 09/28/16 05:55 CXR reviewed by myself shows RLL atelectasis Physical Exam - Physical Exam General Appearance: alert, no apparent distress EENT: PERRL/EOMI, normal ENT inspection Neck: non-tender, full range of motion, supple, normal inspection Respiratory: chest non-tender, lungs clear, normal breath sounds, rhonchi Cardiac/Chest: normal peripheral pulses, regular rate, rhythm, systolic murmur Abdomen: normal bowel sounds, non-tender, soft Male Genitalia: deferred Rectal: deferred ICD10 Worksheet Patient Problems: Problems Problem Status Diagnosed Acute bronchitis Acute Hematemesis Acute Hypoxia Acute Tracheostomy complication Acute Vomiting Acute Constipation Acute Cough Acute DVT (deep venous thrombosis) Acute Decubitus skin ulcer Acute Fall from bed, initial encounter Acute Fever Acute Laceration of forehead Acute Nutrition disorder Acute Pneumonia Acute Respiratory distress Acute Subarachnoid hemorrhage following injury Acute Subdural hemorrhage Acute Tachycardia Acute
[2016-09-29] MEDS ORDERED: OCTREOTIDE ACETATE 50 MCG/ML INJ SC SCH (15:30)
[2016-09-29] MEDS: AZITHROMYCIN IV 250 MG in D5W 250 ML IV SCH (15:36)
[2016-09-29] MEDS: predniSONE 20 MG TAB PO SCH (16:04)
[2016-09-29] MEDS: MELATONIN 3 MG TAB TUBE SCH (19:59)
[2016-09-29] MEDS: DOXAZOSIN MESYLATE 1 MG TAB TUBE SCH (19:59)
[2016-09-29] MEDS: ATORVASTATIN CALCIUM 40 MG TAB TUBE SCH (19:59)
[2016-09-29] MEDS: ALPRAZolam 0.25 MG TAB TUBE SCH (19:59)
[2016-09-30] MEDS: PIPERACILLIN/TAZO 4.5 GM/DEX 100 ML IV SCH ×4 (00:07→18:02)
[2016-09-30] MEDS: IPRATROPIUM/ALBUTEROL 3 ML DEYVIAL IH SCH ×4 (04:50→20:42)
[2016-09-30] MEDS: ACETYLCYSTEINE 20% IH SCH ×4 (04:50→20:42)
[2016-09-30 05:29] LABS: % IMMATURE GRANULYOCYTES 0.3 % (0.0-1.1); ABSOLUTE IMMATURE GRANULOCYTES 0.02 10^3/uL (0.00-0.10); ADD DIFF? NO; ADD MORPH? NO; ADD SCAN? NO; ATYPICAL LYMPHOCYTE FLAG 0 (0-99); FRAGMENT RBC FLAG 0 (0-99); HEMATOCRIT 32.5 % (40.0-51.0); HEMOGLOBIN 10.9 g/dL (13.7-17.5); LEFT SHIFT FLG 0 (0-99); LIPEMIA HEMOLYSIS FLAG 80 (0-99); MEAN CELL HEMOGLOBIN 28.2 pg (27.9-34.1); MEAN CELL HEMOGLOBIN CONCENTR. 33.5 g/dL (32.4-36.7); MEAN PLATELET VOLUME 9.6 fL (8.7-11.7); PLATELET CLUMPS FLAG 10 (0-99); PLATELET COUNT 218 10^3/uL (150-400); RED BLOOD CELL COUNT 3.87 10^6/uL (4.40-6.38); RED CELL DISTRIBUTION WIDTH 15.3 % (11.5-15.2)
[2016-09-30 05:41] LABS: ANION GAP 6 mEq/L (8-16); CALCIUM 8.8 mg/dL (8.5-10.4); CARBON DIOXIDE 34 mEq/l (22-31); CHLORIDE 100 mEq/L (97-110); CREATININE 0.6 mg/dL (0.7-1.3); GLOMERULAR FILTRATION RATE > 60; GLUCOSE 137 mg/dL (70-100); POTASSIUM 4.2 mEq/L (3.5-5.2); SODIUM 140 mEq/L (134-144)
--- NOTE | 2016-09-30 09:27 | PDINTPN ---
Ancillary Services Manager Therapy Progress Note Assessment/Plan: Assessment/Plan: * S/P intracerebral hemorrhage * S/P trach- * Bronchorrhea- secretions have improved since starting steroids and azithromycin -continue * N/V-resolved * Diarrhea-resolved * Sacral decub * HTN Subjective: Awake and alert. Comfortable Objective: Vital Signs Temp Pulse Resp BP Pulse Ox 36.9 C 69 15 107/78 95 09/29/16 19:44 09/30/16 05:23 09/30/16 05:23 09/30/16 05:23 09/30/16 05:23 Microbiology 09/27/16 11:40 - Final Sputum, Induced/Suctioned 09/29/16 15:55 - Final Sputum, Induced/Suctioned Laboratory Results 09/30/16 04:50 09/30/16 04:50 09/29/16 09/30/16 10/01/16 05:59 05:59 05:59 Intake Total 2940 2203 Output Total 1400 2100 Balance 1540 103 PT 14.7 SEC (12.0-15.0) 09/28/16 05:55 INR 1.15 (0.83-1.16) 09/28/16 05:55 Physical Exam - Physical Exam General Appearance: No alert, No no apparent distress EENT: PERRL/EOMI, normal ENT inspection Neck: non-tender, full range of motion, other (trach okay) Respiratory: rhonchi (few basilar), No respiratory distress, No wheezing, No prolonged expiration Cardiac/Chest: normal peripheral pulses, regular rate, rhythm, systolic murmur Abdomen: normal bowel sounds, non-tender, soft Male Genitalia: deferred Rectal: deferred Skin: normal color, warm/dry Neuro/Psych: alert ICD10 Worksheet Patient Problems: Problems Problem Status Diagnosed Acute bronchitis Acute Hematemesis Acute Hypoxia Acute Tracheostomy complication Acute Vomiting Acute Constipation Acute Cough Acute DVT (deep venous thrombosis) Acute Decubitus skin ulcer Acute Fall from bed, initial encounter Acute Fever Acute Laceration of forehead Acute Nutrition disorder Acute Pneumonia Acute Respiratory distress Acute Subarachnoid hemorrhage following injury Acute Subdural hemorrhage Acute Tachycardia Acute
[2016-09-30] MEDS: AZITHROMYCIN IV 250 MG in D5W 250 ML IV SCH (10:02)
[2016-09-30] MEDS: PANTOPRAZOLE SODIUM 40 MG in NS 100 ML IV SCH (10:07)
--- NOTE | 2016-09-30 10:28 | HOSPPROG ---
Hospitalist Progress Note Assessment/Plan: Hospitalist Progress Note Assessment/Plan: Assessment: 56-year-old male presents with aspiration pneumonia in the setting of acute vomiting # Aspiration pneumonia with copious pulmonary secretions -cont D#4 vanco/zoyn pending staph c&s in sputum #Vomiting (resolved) - continue symptomatic medications - no vomiting this afternoon # Acute on chronic hypoxic respiratory failure -cont high flow o2 via trach collar -cont scopolamine patch for secretions # Chronic hypertension -monitor off of bp meds # Hemiparesis. Chronic, secondary to intracranial hemorrhage, patient requires significant daily care with trach and PEG, he is able to communicate with board # BPH. Chronic, has indwelling Rader catheter, no evidence of urinary tract infection on UA # Stage II sacral decubitus ulcers. Present on arrival, seen in consultation by wound care, continue wound care consultation # asymptomatic bacteruria with chronic rader - change rader if not done so far during this admission Diet. Tube feeds Prophylaxis. High risk patient, Lovenox 40 Code. Full Disposition. plan to complete 7 days of treatment with iv abx for asp pna. will transfer to stepdown Subjective: Pt reports no pain concerns, resolved nausea and vomiting and resolving shortness of breath that is improved from yesterday. Pt reports his secretions are about the same as yesterday. His sacral ulcers are not bothering him. Nursing reports secretions are improving, pt has been suction 6-7 times this morning. No reports of vomiting, nausea or diarrhea. ROS: denies fever, chills, chest pain, abdominal pain, N/V/D, headaches Objective: Vital Signs Temp Pulse Resp BP Pulse Ox 36.9 C 64 12 107/78 95 09/29/16 19:44 09/30/16 10:20 09/30/16 10:20 09/30/16 05:23 09/30/16 10:20 Microbiology 09/27/16 11:40 - Final Sputum, Induced/Suctioned 09/29/16 15:55 - Final Sputum, Induced/Suctioned Laboratory Results 09/30/16 04:50 09/30/16 04:50 09/29/16 09/30/16 10/01/16 05:59 05:59 05:59 Intake Total 2940 2203 Output Total 1400 2100 Balance 1540 103 PT 14.7 SEC (12.0-15.0) 09/28/16 05:55 INR 1.15 (0.83-1.16) 09/28/16 05:55 - Physical Exam Constitutional: chronically ill appearing Ears, Nose, Mouth, Throat: other (tracheostomy) Cardiovascular: regular rate and rhythym, no murmur, rub, or gallop Respiratory: reduced air movement, No expiratory wheeze, No inspiratory crackles , No rhonchi Gastrointestinal: normoactive bowel sounds, soft, non-tender abdomen, no palpable masses, No guarding, No rebound Genitourinary: no bladder fullness, no bladder tenderness, rader in urethra, No perirectal lesion ICD10 Worksheet Patient Problems: Problems Problem Status Diagnosed Acute bronchitis Acute Hematemesis Acute Hypoxia Acute Tracheostomy complication Acute Vomiting Acute Constipation Acute Cough Acute DVT (deep venous thrombosis) Acute Decubitus skin ulcer Acute Fall from bed, initial encounter Acute Fever Acute Laceration of forehead Acute Nutrition disorder Acute Pneumonia Acute Respiratory distress Acute Subarachnoid hemorrhage following injury Acute Subdural hemorrhage Acute Tachycardia Acute
[2016-09-30] MEDS: FAMOTIDINE 20 MG TAB TUBE SCH ×2 (10:51→20:51)
[2016-09-30] MEDS: predniSONE 20 MG TAB PO SCH (10:51)
[2016-09-30] MEDS: SERTRALINE HCL 50 MG TAB TUBE SCH (10:51)
[2016-09-30] MEDS: SENNOSIDES 17.6 MG/10 ML UDL PO SCH ×2 (10:51→20:51)
[2016-09-30] MEDS: VANCOMYCIN 1.5 GM in D5W 250 ML IV SCH ×2 (11:24→23:33)
--- NOTE | 2016-09-30 12:43 | WOCRNPDOC ---
WOCRN Advanced Assessment Note - Skin Integrity Problem, Advanced Assess Bilateral Sacrum Pressure Injury Dressing Type: Allevyn Life Dressing Description: Soiled Exudate Amount: Scant Exudate Color: Reddish/Yellow Exudate Characteristic(s): Serosanguinous Integumentary Issue Intervention: Dressing Changed Irene Wound Tissue: Denuded Irene Wound Swelling: Mild Wound Bed Color: Red Wound Bed Constitution: Smooth Tissue, Scab Site Odor: None Pressure Injury Stage: Stage 2 Pressure Injury Present on Admit: Yes (Documented in H&P) Skin Integrity Problem Comment: Partial-thickness tissue loss evident on both the R and L sacrum, R improved since previous assessment. Wound bed is a mixture of smooth tissue w/ scattered pinpoint scabs throughout, w/ friable margins.Irene-wound tissue continues to be mildly denuded and friable. This wound continues to have the appearance of a combination of pressure injury and IAD. Continue w/ pressure-relieving support surface and dressing, turns q. 2 side to side.
[2016-09-30] MEDS: DOXAZOSIN MESYLATE 1 MG TAB TUBE SCH (20:50)
[2016-09-30] MEDS: ALPRAZolam 0.25 MG TAB TUBE SCH (20:50)
[2016-09-30] MEDS: MELATONIN 3 MG TAB TUBE SCH (20:50)
[2016-09-30] MEDS: ATORVASTATIN CALCIUM 40 MG TAB TUBE SCH (20:51)
[2016-10-01] MEDS: PIPERACILLIN/TAZO 4.5 GM/DEX 100 ML IV SCH ×2 (01:10→05:34)
[2016-10-01] MEDS: IPRATROPIUM/ALBUTEROL 3 ML DEYVIAL IH SCH ×4 (04:44→21:08)
[2016-10-01] MEDS: ACETYLCYSTEINE 20% IH SCH ×4 (04:44→21:08)
[2016-10-01 05:02] LABS: % IMMATURE GRANULYOCYTES 0.3 % (0.0-1.1); ABSOLUTE IMMATURE GRANULOCYTES 0.03 10^3/uL (0.00-0.10); ADD DIFF? NO; ADD MORPH? NO; ADD SCAN? NO; ATYPICAL LYMPHOCYTE FLAG 0 (0-99); FRAGMENT RBC FLAG 0 (0-99); HEMATOCRIT 32.6 % (40.0-51.0); LEFT SHIFT FLG 0 (0-99); LIPEMIA HEMOLYSIS FLAG 80 (0-99); MEAN CELL HEMOGLOBIN 28.1 pg (27.9-34.1); MEAN CELL HEMOGLOBIN CONCENTR. 33.7 g/dL (32.4-36.7); MEAN CELL VOLUME 83.4 fL (81.5-99.8); MEAN PLATELET VOLUME 9.2 fL (8.7-11.7); PLATELET CLUMPS FLAG 0 (0-99); PLATELET COUNT 215 10^3/uL (150-400); RED BLOOD CELL COUNT 3.91 10^6/uL (4.40-6.38); RED CELL DISTRIBUTION WIDTH 15.4 % (11.5-15.2)
[2016-10-01 05:30] LABS: CARBON DIOXIDE 32 mEq/l (22-31); CHLORIDE 102 mEq/L (97-110); CREATININE 0.6 mg/dL (0.7-1.3); GLOMERULAR FILTRATION RATE > 60; GLUCOSE 136 mg/dL (70-100); SODIUM 143 mEq/L (134-144)
[2016-10-01 05:50] LABS: ANION GAP 9 mEq/L (8-16)
--- NOTE | 2016-10-01 08:18 | HOSPPROG ---
Hospitalist Progress Note Assessment/Plan: Assessment: 56-year-old male with h/o ICH and subsequent hemiparesis, trach and peg, presents with aspiration pneumonia in the setting of acute vomiting # Aspiration pneumonia with copious pulmonary secretions. Sputum Cx growing staph sensitive to ertapenem. No BCx data. -cont day 01/29 atbx, consider increasing DOT to 10 d -discussed with ID, will tailor to ertapenem #Vomiting (resolved) - continue symptomatic medications prn # Acute on chronic hypoxic respiratory failure -cont high flow o2 via trach collar -cont scopolamine patch for secretions -cont prednisone, azithro # Chronic hypertension -monitoring off of bp meds, well controlled # Hemiparesis. Chronic, secondary to intracranial hemorrhage, patient requires significant daily care with trach and PEG, he is able to communicate with letter board # BPH. Chronic, has indwelling Rader catheter, no evidence of urinary tract infection on UA # Stage II sacral decubitus ulcers. Present on arrival, seen in consultation by wound care # asymptomatic bacteruria with chronic rader - change rader if not done so far during this admission Diet. Tube feeds Prophylaxis. High risk patient, Lovenox 40 Code. Full Disposition. plan to complete 7-10 days of treatment with iv abx for asp pna. cont stepdown Subjective: Pt feels better. Continues to report a lot of secretions, but they are no longer discolored, describes as clear. Denies CP or SOB. Still some cough. No fevers. Overall feels better. Objective: Vital Signs Temp Pulse Resp BP Pulse Ox 37.1 C 70 16 119/66 97 10/01/16 07:39 10/01/16 07:39 10/01/16 07:39 10/01/16 07:39 10/01/16 07:39 Microbiology 09/29/16 15:55 - Final Sputum, Induced/Suctioned 09/27/16 11:40 - Final Sputum, Induced/Suctioned Laboratory Results 10/01/16 04:55 10/01/16 04:55 09/30/16 10/01/16 10/02/16 05:59 05:59 05:59 Intake Total 2203 3698 Output Total 2100 2200 Balance 103 1498 PT 14.7 SEC (12.0-15.0) 09/28/16 05:55 INR 1.15 (0.83-1.16) 09/28/16 05:55 - Physical Exam Constitutional: no apparent distress Eyes: PERRL Ears, Nose, Mouth, Throat: moist mucous membranes Cardiovascular: regular rate and rhythym Respiratory: no respiratory distress, other (coarse breath sounds) Gastrointestinal: normoactive bowel sounds, soft, non-tender abdomen Skin: warm Neurologic: AAOx3, other (right sided hemiparesis, non-verbal) Psychiatric: interacting appropriately ICD10 Worksheet Patient Problems: Problems Problem Status Diagnosed Acute bronchitis Acute Hematemesis Acute Hypoxia Acute Tracheostomy complication Acute Vomiting Acute Constipation Acute Cough Acute DVT (deep venous thrombosis) Acute Decubitus skin ulcer Acute Fall from bed, initial encounter Acute Fever Acute Laceration of forehead Acute Nutrition disorder Acute Pneumonia Acute Respiratory distress Acute Subarachnoid hemorrhage following injury Acute Subdural hemorrhage Acute Tachycardia Acute
[2016-10-01] MEDS: AZITHROMYCIN IV 250 MG in D5W 250 ML IV SCH (08:21)
[2016-10-01] MEDS: guaiFENesin 200 MG/10 ML UDCUP TUBE SCH ×3 (08:21→20:29)
[2016-10-01] MEDS: SERTRALINE HCL 50 MG TAB TUBE SCH (08:21)
[2016-10-01] MEDS: FAMOTIDINE 20 MG TAB TUBE SCH ×2 (08:21→20:30)
[2016-10-01] MEDS: predniSONE 20 MG TAB PO SCH (08:21)
[2016-10-01] MEDS: SENNOSIDES 17.6 MG/10 ML UDL PO SCH ×2 (08:22→20:30)
--- NOTE | 2016-10-01 09:03 | PDINTPN ---
Hog Tender Progress Note Assessment/Plan: Assessment/Plan: * S/P intracerebral hemorrhage * S/P trach- * Resp failure-markedly positive I/O -add lasix * Bronchorrhea- secretions have improved, but still high since starting steroids and azithromycin -continue * N/V-resolved * Diarrhea-resolved * Sacral decub * HTN Subjective: Awake and alert Objective: Vital Signs Temp Pulse Resp BP Pulse Ox 37.1 C 70 16 119/66 97 10/01/16 07:39 10/01/16 07:39 10/01/16 07:39 10/01/16 07:39 10/01/16 07:39 Microbiology 09/27/16 11:40 - Final Sputum, Induced/Suctioned Sputum Culture - Final Staphylococcus Aureus Proteus Vulgaris 09/29/16 15:55 - Final Sputum, Induced/Suctioned Laboratory Results 10/01/16 04:55 10/01/16 04:55 09/30/16 10/01/16 10/02/16 05:59 05:59 05:59 Intake Total 2203 3698 Output Total 2100 2200 Balance 103 1498 PT 14.7 SEC (12.0-15.0) 09/28/16 05:55 INR 1.15 (0.83-1.16) 09/28/16 05:55 Physical Exam - Physical Exam General Appearance: alert, no apparent distress EENT: PERRL/EOMI, normal ENT inspection Neck: non-tender, full range of motion, other (trach) Respiratory: rhonchi (scattered), No respiratory distress, No wheezing Cardiac/Chest: normal peripheral pulses, regular rate, rhythm Abdomen: normal bowel sounds, non-tender, soft Male Genitalia: deferred Rectal: deferred Skin: normal color, warm/dry ICD10 Worksheet Patient Problems: Problems Problem Status Diagnosed Acute bronchitis Acute Hematemesis Acute Hypoxia Acute Tracheostomy complication Acute Vomiting Acute Constipation Acute Cough Acute DVT (deep venous thrombosis) Acute Decubitus skin ulcer Acute Fall from bed, initial encounter Acute Fever Acute Laceration of forehead Acute Nutrition disorder Acute Pneumonia Acute Respiratory distress Acute Subarachnoid hemorrhage following injury Acute Subdural hemorrhage Acute Tachycardia Acute
[2016-10-01] MEDS: FUROSEMIDE 40 MG/4 ML VIAL IVP SCH (10:02)
[2016-10-01] MEDS: ERTAPENEM 1 GM in NS 100 ML IV SCH (10:24)
[2016-10-01] MEDS: ENOXAPARIN 40 MG/0.4 ML SYR SC SCH (12:54)
[2016-10-01] MEDS: ALPRAZolam 0.25 MG TAB TUBE SCH (20:29)
[2016-10-01] MEDS: ATORVASTATIN CALCIUM 40 MG TAB TUBE SCH (20:30)
[2016-10-01] MEDS: MELATONIN 3 MG TAB TUBE SCH (20:30)
[2016-10-01] MEDS: DOXAZOSIN MESYLATE 1 MG TAB TUBE SCH (20:30)
[2016-10-02 03:38] LABS: HEMOGLOBIN 11.5 g/dL (13.7-17.5); MEAN CELL HEMOGLOBIN CONCENTR. 32.9 g/dL (32.4-36.7); MEAN CELL VOLUME 85.4 fL (81.5-99.8); RED BLOOD CELL COUNT 4.1 10^6/uL (4.40-6.38); RED CELL DISTRIBUTION WIDTH 15.6 % (11.5-15.2)
[2016-10-02 03:51] LABS: ANION GAP 12 mEq/L (8-16); CALCIUM 9.5 mg/dL (8.5-10.4); CARBON DIOXIDE 33 mEq/l (22-31); CHLORIDE 100 mEq/L (97-110); CREATININE 0.6 mg/dL (0.7-1.3); GLOMERULAR FILTRATION RATE > 60; GLUCOSE 96 mg/dL (70-100); SODIUM 145 mEq/L (134-144)
[2016-10-02] MEDS: IPRATROPIUM/ALBUTEROL 3 ML DEYVIAL IH SCH ×4 (05:21→20:42)
[2016-10-02] MEDS: ACETYLCYSTEINE 20% IH SCH ×4 (05:22→20:43)
[2016-10-02] MEDS: ERTAPENEM 1 GM in NS 100 ML IV SCH (09:21)
[2016-10-02] MEDS: AZITHROMYCIN IV 250 MG in D5W 250 ML IV SCH (09:21)
[2016-10-02] MEDS: FUROSEMIDE 40 MG/4 ML VIAL IVP SCH (09:22)
[2016-10-02] MEDS: guaiFENesin 200 MG/10 ML UDCUP TUBE SCH ×3 (09:22→20:17)
[2016-10-02] MEDS: predniSONE 20 MG TAB PO SCH (09:22)
[2016-10-02] MEDS: ENOXAPARIN 40 MG/0.4 ML SYR SC SCH (09:22)
[2016-10-02] MEDS: FAMOTIDINE 20 MG TAB TUBE SCH ×2 (09:22→20:18)
[2016-10-02] MEDS: SENNOSIDES 17.6 MG/10 ML UDL PO SCH (09:23)
[2016-10-02] MEDS: SERTRALINE HCL 50 MG TAB TUBE SCH (09:23)
--- NOTE | 2016-10-02 09:55 | PDINTPN ---
Noc Analyst Progress Note Assessment/Plan: Assessment/Plan: * S/P intracerebral hemorrhage * S/P trach- * Resp failure-markedly positive I/O -add lasix * Bronchorrhea- secretions continue to improve -cont abx/steroids -cont diurese * N/V-resolved * Diarrhea-resolved * Sacral decub * HTN Subjective: awake and alert Objective: Vital Signs Temp Pulse Resp BP Pulse Ox 37.1 C 81 19 134/86 H 97 10/02/16 08:22 10/02/16 08:22 10/02/16 08:22 10/02/16 08:22 10/02/16 08:22 Microbiology 09/29/16 15:55 - Final Sputum, Induced/Suctioned Sputum Culture - Final Corynebacterium Striatum 09/27/16 11:40 - Final Sputum, Induced/Suctioned Sputum Culture - Final Staphylococcus Aureus Proteus Vulgaris Laboratory Results 10/02/16 03:30 10/02/16 03:30 10/01/16 10/02/16 10/03/16 05:59 05:59 05:59 Intake Total 3698 2378 Output Total 2200 2650 Balance 1498 -272 PT 14.7 SEC (12.0-15.0) 09/28/16 05:55 INR 1.15 (0.83-1.16) 09/28/16 05:55 Physical Exam - Physical Exam General Appearance: alert, no apparent distress EENT: PERRL/EOMI, normal ENT inspection Neck: non-tender, full range of motion, supple, other (trach okay) Respiratory: rhonchi (scattered ronchi-improved), No respiratory distress, No wheezing Cardiac/Chest: normal peripheral pulses, regular rate, rhythm Peripheral Pulses: 2+: carotid (R), carotid (L), femoral (R), femoral (L), dorsalis-pedis (R), dorsalis-pedis (L) Abdomen: normal bowel sounds, non-tender, soft Male Genitalia: deferred Rectal: deferred Skin: normal color, warm/dry ICD10 Worksheet Patient Problems: Problems Problem Status Diagnosed Acute bronchitis Acute Hematemesis Acute Hypoxia Acute Tracheostomy complication Acute Vomiting Acute Constipation Acute Cough Acute DVT (deep venous thrombosis) Acute Decubitus skin ulcer Acute Fall from bed, initial encounter Acute Fever Acute Laceration of forehead Acute Nutrition disorder Acute Pneumonia Acute Respiratory distress Acute Subarachnoid hemorrhage following injury Acute Subdural hemorrhage Acute Tachycardia Acute
[2016-10-02] MEDS: SCOPOLAMINE HYDROBROMIDE 1.5 MG PATCH TD SCH (14:14)
--- NOTE | 2016-10-02 15:03 | HOSPPROG ---
Hospitalist Progress Note Assessment/Plan: Assessment: 56-year-old male with h/o ICH and subsequent hemiparesis, trach and peg, presents with aspiration pneumonia in the setting of acute vomiting # Aspiration pneumonia with copious pulmonary secretions. Sputum Cx growing staph sensitive to ertapenem. No BCx data. -cont day 6/7 atbx, consider increasing DOT to 10 d with ongoing symptoms #Vomiting (resolved) - continue symptomatic medications prn # Acute on chronic hypoxic respiratory failure -cont high flow o2 via trach collar -cont scopolamine patch for secretions -cont prednisone, azithro # Chronic hypertension -monitoring off of bp meds, well controlled # Hemiparesis. Chronic, secondary to intracranial hemorrhage, patient requires significant daily care with trach and PEG, he is able to communicate with letter board # BPH. Chronic, has indwelling Rader catheter, no evidence of urinary tract infection on UA # Stage II sacral decubitus ulcers. Present on arrival, seen in consultation by wound care # asymptomatic bacteruria with chronic rader -change rader during hospitalization if not done yet Diet. Tube feeds Prophylaxis. High risk patient, Lovenox 40 Code. Full Disposition. plan to complete 7-10 days of treatment with iv abx for asp pna. cont stepdown Subjective: Feels a bit better. STill with thin, more clear secretions. No fevers. Still coughing. Denies CP or SOB. Objective: Vital Signs Temp Pulse Resp BP Pulse Ox 36.8 C 94 18 123/81 H 97 10/02/16 12:05 10/02/16 12:05 10/02/16 12:05 10/02/16 12:05 10/02/16 12:05 Microbiology 09/29/16 15:55 - Final Sputum, Induced/Suctioned Sputum Culture - Final Corynebacterium Striatum 09/27/16 11:40 - Final Sputum, Induced/Suctioned Sputum Culture - Final Staphylococcus Aureus Proteus Vulgaris Laboratory Results 10/02/16 03:30 10/02/16 03:30 10/01/16 10/02/16 10/03/16 05:59 05:59 05:59 Intake Total 3698 2378 Output Total 2200 2650 Balance 1498 -272 PT 14.7 SEC (12.0-15.0) 09/28/16 05:55 INR 1.15 (0.83-1.16) 09/28/16 05:55 - Physical Exam Constitutional: no apparent distress Eyes: PERRL Ears, Nose, Mouth, Throat: moist mucous membranes Cardiovascular: regular rate and rhythym Respiratory: no respiratory distress, bronchial breath sounds Gastrointestinal: normoactive bowel sounds, soft, non-tender abdomen Skin: warm Neurologic: AAOx3 Psychiatric: interacting appropriately, other (nonverbal, communicates with a letter board) ICD10 Worksheet Patient Problems: Problems Problem Status Diagnosed Acute bronchitis Acute Hematemesis Acute Hypoxia Acute Tracheostomy complication Acute Vomiting Acute Constipation Acute Cough Acute DVT (deep venous thrombosis) Acute Decubitus skin ulcer Acute Fall from bed, initial encounter Acute Fever Acute Laceration of forehead Acute Nutrition disorder Acute Pneumonia Acute Respiratory distress Acute Subarachnoid hemorrhage following injury Acute Subdural hemorrhage Acute Tachycardia Acute
[2016-10-02] MEDS: DOXAZOSIN MESYLATE 1 MG TAB TUBE SCH (20:17)
[2016-10-02] MEDS: ALPRAZolam 0.25 MG TAB TUBE SCH (20:17)
[2016-10-02] MEDS: MELATONIN 3 MG TAB TUBE SCH (20:17)
[2016-10-02] MEDS: ATORVASTATIN CALCIUM 40 MG TAB TUBE SCH (20:18)
[2016-10-02] MEDS: SENNOSIDES 17.6 MG/10 ML UDL TUBE SCH (20:18)
[2016-10-03 04:46] LABS: ANION GAP 12 mEq/L (8-16); CALCIUM 9.5 mg/dL (8.5-10.4); CARBON DIOXIDE 33 mEq/l (22-31); CHLORIDE 100 mEq/L (97-110); CREATININE 0.6 mg/dL (0.7-1.3); GLOMERULAR FILTRATION RATE > 60; GLUCOSE 110 mg/dL (70-100); POTASSIUM 3.9 mEq/L (3.5-5.2); SODIUM 145 mEq/L (134-144)
[2016-10-03] MEDS ORDERED: ALBUTEROL 3 ML DEYVIAL ONE (05:25)
[2016-10-03] MEDS: ACETYLCYSTEINE 20% IH SCH ×4 (05:29→21:43)
[2016-10-03] MEDS: IPRATROPIUM/ALBUTEROL 3 ML DEYVIAL IH SCH ×4 (05:30→21:43)
--- NOTE | 2016-10-03 11:32 | HOSPPROG ---
Hospitalist Progress Note Assessment/Plan: Assessment: 56-year-old male with h/o ICH and subsequent hemiparesis, trach and peg, presents with aspiration pneumonia in the setting of acute vomiting # Aspiration pneumonia with copious pulmonary secretions. Sputum Cx growing staph sensitive to ertapenem. No BCx data. -cont atbx, day 7, planning for increased DOT, 10-14 days #Vomiting (resolved) - continue symptomatic medications prn # Acute on chronic hypoxic respiratory failure -cont high flow o2 via trach collar -cont scopolamine patch for secretions -cont prednisone day 5, begin to wean tomorrow -d/c azithro, has had 5 days # Chronic hypertension -monitoring off of bp meds, well controlled # Hemiparesis. Chronic, secondary to intracranial hemorrhage, patient requires significant daily care with trach and PEG, he is able to communicate with letter board # BPH. Chronic, has indwelling Rader catheter, no evidence of urinary tract infection on UA # Stage II sacral decubitus ulcers. Present on arrival, seen in consultation by wound care, stage 1-2, observed dressing change today # asymptomatic bacteruria with chronic rader -rader changed on admission Diet. Tube feeds Prophylaxis. High risk patient, Lovenox 40 Code. Full Disposition. plan to complete 10-14 days of treatment with iv abx for asp pna. cont stepdown until dc Subjective: PT doing a bit better every day, secretions decreasing. No fevers. Still some cough. No CP Objective: Vital Signs Temp Pulse Resp BP Pulse Ox 36.8 C 88 15 136/82 H 96 10/03/16 07:47 10/03/16 07:47 10/03/16 07:47 10/03/16 07:47 10/03/16 07:47 Laboratory Results 10/02/16 03:30 10/03/16 04:20 10/02/16 10/03/16 10/04/16 05:59 05:59 05:59 Intake Total 2378 1696 Output Total 2610 8735 Balance -272 -379 PT 14.7 SEC (12.0-15.0) 09/28/16 05:55 INR 1.15 (0.83-1.16) 09/28/16 05:55 - Physical Exam Constitutional: no apparent distress Eyes: PERRL Ears, Nose, Mouth, Throat: moist mucous membranes Cardiovascular: regular rate and rhythym Respiratory: no respiratory distress, bronchial breath sounds Gastrointestinal: normoactive bowel sounds, soft, non-tender abdomen Skin: warm Neurologic: AAOx3 Psychiatric: interacting appropriately ICD10 Worksheet Patient Problems: Problems Problem Status Diagnosed Acute bronchitis Acute Hematemesis Acute Hypoxia Acute Tracheostomy complication Acute Vomiting Acute Constipation Acute Cough Acute DVT (deep venous thrombosis) Acute Decubitus skin ulcer Acute Fall from bed, initial encounter Acute Fever Acute Laceration of forehead Acute Nutrition disorder Acute Pneumonia Acute Respiratory distress Acute Subarachnoid hemorrhage following injury Acute Subdural hemorrhage Acute Tachycardia Acute
[2016-10-03] MEDS: AZITHROMYCIN IV 250 MG in D5W 250 ML IV SCH (11:44)
[2016-10-03] MEDS: ERTAPENEM 1 GM in NS 100 ML IV SCH (11:44)
[2016-10-03] MEDS: ENOXAPARIN 40 MG/0.4 ML SYR SC SCH (11:45)
[2016-10-03] MEDS: guaiFENesin 200 MG/10 ML UDCUP TUBE SCH ×3 (11:46→20:52)
[2016-10-03] MEDS: FAMOTIDINE 20 MG TAB TUBE SCH ×2 (11:46→20:54)
[2016-10-03] MEDS: FUROSEMIDE 40 MG/4 ML VIAL IVP SCH (11:46)
[2016-10-03] MEDS: predniSONE 20 MG TAB TUBE SCH (11:46)
[2016-10-03] MEDS: SENNOSIDES 17.6 MG/10 ML UDL TUBE SCH ×2 (11:47→21:00)
[2016-10-03] MEDS: SERTRALINE HCL 50 MG TAB TUBE SCH (11:48)
--- NOTE | 2016-10-03 12:32 | PDINTPN ---
Flight Tower Dispatcher Progress Note Assessment/Plan: Assessment: * S/P intracerebral hemorrhage i past * S/P trach- * Resp failure- 2/2 secretions/bronchopneumonia, with bronchorrhea. Also with markedly positive I/O: on lasix * Bronchorrhea- secretions continue to improve, but significant rhonchi persist. -cont abx/steroids -cont diurese * N/V-resolved * Diarrhea-resolved * Sacral decub * HTN Plan: Continue care in the intensive care unit. Continue current medications, bronchodilator therapy and steroids. Can stop the azithromycin at this point. Continue Ertapenem. Consider bronchoscopy later today for obtainment of deep cultures and removal of secretions from smaller, more distal airways. 30 minutes of critical care time spent directly with the patient. Previous records, scans and x-rays reviewed. Subjective: Indicates he is doing okay. Answers all questions appropriately. Since his breathing and secretions both are getting better. Not back to baseline. Denies pain. Denies significant shortness of breath. Objective: Vital Signs Temp Pulse Resp BP Pulse Ox 36.8 C 89 18 124/82 H 97 10/03/16 07:47 10/03/16 11:51 10/03/16 11:51 10/03/16 11:51 10/03/16 11:51 Laboratory Results 10/02/16 03:30 10/03/16 04:20 10/02/16 10/03/16 10/04/16 05:59 05:59 05:59 Intake Total 2378 1696 Output Total 2650 2075 Balance -272 -379 PT 14.7 SEC (12.0-15.0) 09/28/16 05:55 INR 1.15 (0.83-1.16) 09/28/16 05:55 Physical Exam - Physical Exam General Appearance: alert, mild distress, No unresponsive EENT: PERRL/EOMI Neck: other (Tracheostomy, trach collar in place. Moderate secretions persist requiring intermittent suctioning) Respiratory: rhonchi (Bilaterally present), No lungs clear, No normal breath sounds, No respiratory distress Cardiac/Chest: regular rate, rhythm Abdomen: normal bowel sounds, non-tender, soft, other (Peg tube in place) Male Genitalia: other (Alfaro catheter in place) Skin: warm/dry, pallor Lymphatic: no adenopathy Extremities: pedal edema (Trace +) Neuro/Psych: motor weakness (Secondary to previous brain injury, no apparent changes.), No no motor/sensory deficits ICD10 Worksheet Patient Problems: Problems Problem Status Diagnosed Acute bronchitis Acute Hematemesis Acute Hypoxia Acute Tracheostomy complication Acute Vomiting Acute Constipation Acute Cough Acute DVT (deep venous thrombosis) Acute Decubitus skin ulcer Acute Fall from bed, initial encounter Acute Fever Acute Laceration of forehead Acute Nutrition disorder Acute Pneumonia Acute Respiratory distress Acute Subarachnoid hemorrhage following injury Acute Subdural hemorrhage Acute Tachycardia Acute
[2016-10-03] MEDS ORDERED: LIDOCAINE 2% JELLY 5 ML TUBE TP ONE (13:45)
[2016-10-03] MEDS ORDERED: LIDOCAINE 1% 30 ML SDV MISC ONE (13:45)
[2016-10-03] MEDS ORDERED: MIDAZOLAM 2 MG/2 ML VIAL ONE (16:03)
[2016-10-03] MEDS ORDERED: fentaNYL 100 MCG/2 ML INJ ONE (16:04)
[2016-10-03] MEDS ORDERED: MIDAZOLAM 2 MG/2 ML VIAL IVP ONE (16:05)
[2016-10-03] MEDS ORDERED: fentaNYL 100 MCG/2 ML INJ IVP ONE (16:05)
[2016-10-03] MEDS: DOXAZOSIN MESYLATE 1 MG TAB TUBE SCH (20:54)
[2016-10-03] MEDS: MELATONIN 3 MG TAB TUBE SCH (20:54)
[2016-10-03] MEDS: ATORVASTATIN CALCIUM 40 MG TAB TUBE SCH (20:54)
[2016-10-03] MEDS: ALPRAZolam 0.25 MG TAB TUBE SCH (20:54)
[2016-10-04 05:04] LABS: ANION GAP 9 mEq/L (8-16); CALCIUM 9.5 mg/dL (8.5-10.4); CARBON DIOXIDE 37 mEq/l (22-31); CHLORIDE 97 mEq/L (97-110); CREATININE 0.6 mg/dL (0.7-1.3); GLOMERULAR FILTRATION RATE > 60; GLUCOSE 119 mg/dL (70-100); POTASSIUM 3.9 mEq/L (3.5-5.2); SODIUM 143 mEq/L (134-144)
[2016-10-04] MEDS: IPRATROPIUM/ALBUTEROL 3 ML DEYVIAL IH SCH ×4 (05:18→22:06)
[2016-10-04] MEDS: ACETYLCYSTEINE 20% IH SCH ×4 (05:18→22:07)
--- NOTE | 2016-10-04 08:58 | DX ---
Portable AP Upright Chest October 04, 2016 6:01 a.m. Clinical History: 56-year-old male in the ICU for follow up of respiratory status. Comparison Study: Chest, dated September 29, 2016, at 2:30 p.m. Findings: There is stable positioning of the tracheostomy tube, which terminates 7 cm above the elba a. Right-sided HOT SAW HELPER shunt catheter tubing is present. Telemetry monitoring lead lines are noted. The ca rdiac size is within normal limits. There are some bibasilar areas of subsegmental atelectasis. The p ulmonary vasculature is normal. There is a mild levothoracolumbar junction curvature. The bones are d emineralized. Impression: Bibasilar subsegmental atelectasis versus mild infiltrate(s), slightly more pronounced th an on September 29, 2016.
[2016-10-04] MEDS: guaiFENesin 200 MG/10 ML UDCUP TUBE SCH ×3 (09:39→22:25)
--- NOTE | 2016-10-04 09:39 | HOSPPROG ---
Hospitalist Progress Note Assessment/Plan: Assessment: 56-year-old male with h/o ICH and subsequent hemiparesis, trach and peg, presents with aspiration pneumonia in the setting of acute vomiting # Aspiration pneumonia with copious pulmonary secretions. Sputum Cx growing staph sensitive to ertapenem. No BCx data. Bronch yesterday, no orgs on GS -cont atbx, day 9, planning for increased DOT, 10-14 days. -barium study to eval for ongoing reflux per stock parts inspector -add glycopyrrolate in effort to reduce secretions # Acute on chronic hypoxic respiratory failure - down to 5 LPM -cont high flow o2 via trach collar -cont scopolamine patch for secretions -cont prednisone day 5, begin to wean tomorrow -d/c fainaithro, has had 5 days # Chronic hypertension -monitoring off of bp meds, well controlled # Hemiparesis secondary to prior ICH. Patient requires significant daily care with trach and PEG, he is able to communicate with letter board -hoping for more PT/OT -inpt rehab eval # BPH. Chronic, has indwelling Rader catheter, no evidence of urinary tract infection on UA # Stage II sacral decubitus ulcers. Present on arrival, seen in consultation by wound care, stage 1-2, observed dressing change today # asymptomatic bacteruria with chronic rader -rader changed on admission Diet. Tube feeds Prophylaxis. High risk patient, Lovenox 40 Code. Full Disposition. plan to complete 10-14 days of treatment with iv abx for asp pna. cont stepdown until dc Subjective: Pt says he does not notice a difference in secretions. No fevers. Objective: Vital Signs Temp Pulse Resp BP Pulse Ox 36.0 C 66 14 104/70 91 L 10/04/16 08:09 10/04/16 08:09 10/04/16 08:09 10/04/16 08:09 10/04/16 08:09 Microbiology 10/03/16 16:45 Gram Stain - Final Lung Bilateral - Bronchial Washings Laboratory Results 10/02/16 03:30 10/04/16 04:36 10/03/16 10/04/16 10/05/16 05:59 05:59 05:59 Intake Total 1696 1902 Output Total 8764 8500 Balance -379 -608 PT 14.7 SEC (12.0-15.0) 09/28/16 05:55 INR 1.15 (0.83-1.16) 09/28/16 05:55 - Physical Exam Constitutional: no apparent distress Eyes: PERRL Ears, Nose, Mouth, Throat: moist mucous membranes Cardiovascular: regular rate and rhythym Respiratory: no respiratory distress, bronchial breath sounds Gastrointestinal: normoactive bowel sounds, soft, non-tender abdomen Skin: warm Neurologic: AAOx3, other (right hemiparesis with gross motor skills) Psychiatric: interacting appropriately ICD10 Worksheet Patient Problems: Problems Problem Status Diagnosed Acute bronchitis Acute Hematemesis Acute Hypoxia Acute Tracheostomy complication Acute Vomiting Acute Constipation Acute Cough Acute DVT (deep venous thrombosis) Acute Decubitus skin ulcer Acute Fall from bed, initial encounter Acute Fever Acute Laceration of forehead Acute Nutrition disorder Acute Pneumonia Acute Respiratory distress Acute Subarachnoid hemorrhage following injury Acute Subdural hemorrhage Acute Tachycardia Acute
[2016-10-04] MEDS: SERTRALINE HCL 50 MG TAB TUBE SCH (09:40)
[2016-10-04] MEDS: ENOXAPARIN 40 MG/0.4 ML SYR SC SCH (09:40)
[2016-10-04] MEDS: ERTAPENEM 1 GM in NS 100 ML IV SCH (09:40)
[2016-10-04] MEDS: predniSONE 20 MG TAB TUBE SCH (09:41)
[2016-10-04] MEDS: SENNOSIDES 17.6 MG/10 ML UDL TUBE SCH ×2 (09:41→20:01)
[2016-10-04] MEDS: FAMOTIDINE 20 MG TAB TUBE SCH ×2 (09:41→20:01)
--- NOTE | 2016-10-04 14:08 | DX ---
Modified Single Contrast Upper GI Clinical History: 56-year-old hemiparetic male in the ICU with recurrent aspiration pneumonia. The in tensivist requests fluoroscopic evaluation after contrast injection through the PEG tube to determine if there is gastroesophageal reflux. Technique: The PEG tube was utilized to deliver 240 mL of thin barium into the stomach, and fluorosco py was performed while the patient was in a semirecumbent AP position, a AP supine position, and then repositioned into an RPO position. Fluoroscopy Time: 1.3 minutes (entrance dose of 15.60 mGy). Comparison Study: None. Findings: The PEG tube is appropriately positioned, and contrast is noted within the gastric fundus a nd then subsequently in the body, antrum, and pylorus and into the duodenal sweep. The patient was pl aced in a semirecumbent, supine, and RPO positions and was also asked to perform Valsalva maneuver; h owever, there was no gastroesophageal reflux observed. I communicated these results to the ICU nurse who was present during the exam. Impression: Limited study does not reveal any gastroesophageal reflux after administration of enteric contrast through the PEG tube.
[2016-10-04] MEDS: GLYCOPYRROLATE 1 MG TAB PO SCH ×2 (16:15→22:26)
--- NOTE | 2016-10-04 16:42 | PDINTPN ---
Marine Design Engineer Progress Note Assessment/Plan: Assessment: * S/P intracerebral hemorrhage in past -quadriparesis * S/P trach * Resp failure- 2/2 secretions/bronchopneumonia, with bronchorrhea. Also with markedly positive I/O: on lasix * Bronchorrhea- secretions continue to improve, rhonchi appear better today. -cont abx/steroids -cont diurese -add glycopyrrolate * N/V-resolved * Diarrhea-resolved * Sacral decub * HTN Plan: Continue care in the intensive care unit. Continue current medications, bronchodilator therapy and steroids. Will add glycopyrrolate to see this helps decrease oral and bronchial secretions. Continue Ertapenem. Will add barium to NG tube to see if he has significant reflux which we are missing. Will as ask OT and PT to become more involved. Consider inpatient rehabilitation evaluation. Subjective: Doing okay. Feels he has less secretions. Denies significant pain Objective: Vital Signs Temp Pulse Resp BP Pulse Ox 36.1 C 74 15 116/81 H 97 10/04/16 12:19 10/04/16 16:14 10/04/16 16:14 10/04/16 16:00 10/04/16 16:14 Microbiology 10/03/16 16:45 Gram Stain - Final Lung Bilateral - Bronchial Washings Laboratory Results 10/02/16 03:30 10/04/16 04:36 10/03/16 10/04/16 10/05/16 05:59 05:59 05:59 Intake Total 1696 1902 Output Total 2075 2510 Balance -379 -608 PT 14.7 SEC (12.0-15.0) 09/28/16 05:55 INR 1.15 (0.83-1.16) 09/28/16 05:55 Chest x-ray: No change in minimal bi-basilar infiltrates/atelectasis Esophagram: No evidence of gastroesophageal reflux. Physical Exam - Physical Exam General Appearance: alert (Arousable), no apparent distress EENT: PERRL/EOMI Neck: other (Tracheostomy tube in place) Respiratory: decreased breath sounds, rales (Some bibasilar rales), rhonchi ( Some present, but significantly decreased compared to yesterday) Cardiac/Chest: regular rate, rhythm Abdomen: normal bowel sounds (G-tube in place. Tolerating tube feedings), non- tender, soft Male Genitalia: other (Alfaro catheter, good urine output) Skin: warm/dry Extremities: pedal edema Neuro/Psych: No no motor/sensory deficits (No changes), No cognition abnormalities ICD10 Worksheet Patient Problems: Problems Problem Status Diagnosed Acute bronchitis Acute Hematemesis Acute Hypoxia Acute Tracheostomy complication Acute Vomiting Acute Constipation Acute Cough Acute DVT (deep venous thrombosis) Acute Decubitus skin ulcer Acute Fall from bed, initial encounter Acute Fever Acute Laceration of forehead Acute Nutrition disorder Acute Pneumonia Acute Respiratory distress Acute Subarachnoid hemorrhage following injury Acute Subdural hemorrhage Acute Tachycardia Acute
[2016-10-04] MEDS: MELATONIN 3 MG TAB TUBE SCH (20:00)
[2016-10-04] MEDS: ATORVASTATIN CALCIUM 40 MG TAB TUBE SCH (20:00)
[2016-10-04] MEDS: DOXAZOSIN MESYLATE 1 MG TAB TUBE SCH (20:00)
[2016-10-04] MEDS: ALPRAZolam 0.25 MG TAB TUBE SCH (20:01)
[2016-10-05] MEDS: IPRATROPIUM/ALBUTEROL 3 ML DEYVIAL IH SCH ×4 (05:44→22:25)
[2016-10-05] MEDS: ACETYLCYSTEINE 20% IH SCH ×4 (05:44→22:25)
[2016-10-05] MEDS: ERTAPENEM 1 GM in NS 100 ML IV SCH (08:20)
[2016-10-05] MEDS: guaiFENesin 200 MG/10 ML UDCUP TUBE SCH ×3 (08:20→21:22)
[2016-10-05] MEDS: SERTRALINE HCL 50 MG TAB TUBE SCH (08:20)
[2016-10-05] MEDS: SENNOSIDES 17.6 MG/10 ML UDL TUBE SCH ×2 (08:21→21:11)
[2016-10-05] MEDS: ENOXAPARIN 40 MG/0.4 ML SYR SC SCH (08:21)
[2016-10-05] MEDS: GLYCOPYRROLATE 1 MG TAB PO SCH ×3 (08:21→21:22)
[2016-10-05] MEDS: FAMOTIDINE 20 MG TAB TUBE SCH ×2 (08:21→20:04)
[2016-10-05] MEDS: predniSONE 20 MG TAB TUBE SCH (08:21)
[2016-10-05] MEDS: SCOPOLAMINE HYDROBROMIDE 1.5 MG PATCH TD SCH (09:43)
--- NOTE | 2016-10-05 10:05 | WOCRNPDOC ---
WOCRN Advanced Assessment Note - Skin Integrity Problem, Advanced Assess Bilateral Sacrum Pressure Injury Dressing Type: Allevyn Life Dressing Description: Clean/Dry, Intact Exudate Amount: None Exudate Characteristic(s): None Integumentary Issue Intervention: Visualized Under Dressing Irene Wound Tissue: Blanching, Erythema, Shiny Irene Wound Swelling: None Wound Bed Color: Red Wound Bed Constitution: Smooth Tissue Wound Edges: Epithelizing Site Odor: None Pressure Injury Stage: Stage 2 Pressure Injury Present on Admit: Yes (Documented in H&P) Skin Integrity Problem Comment: Both R and L sacral pressure injuries improved since previous assessment. Wounds are blanching at margins, evolving from partial-thickness tissue loss to epithelialized tissue. Irene-wound tissue remains fragile and thin. Continue w/ off-loading and protective dressings, as both appear to be effective in healing these wounds. child protective investigator Kelly present and assisting.
--- NOTE | 2016-10-05 10:27 | HOSPPROG ---
Hospitalist Progress Note Assessment/Plan: Assessment: 56-year-old male with h/o ICH and subsequent hemiparesis, trach and peg, presents with aspiration pneumonia in the setting of acute vomiting # Aspiration pneumonia with copious pulmonary secretions. Sputum Cx growing staph sensitive to ertapenem. No BCx data. Bronch yesterday, no orgs on GS. No reflux on esophagram. -cont atbx, day 10, planning for increased DOT, 14 days, per Pulm. -secretions improved with glycopyrrolate, scopolamine # Acute on chronic hypoxic respiratory failure - still requiring 8 LPM O2, does not require O2 at baseline. -cont high flow o2 via trach collar -cont prednisone day 7, begin to wean # Chronic hypertension -monitoring off of bp meds, well controlled # Hemiparesis secondary to prior ICH. Patient requires significant daily care with trach and PEG, he is able to communicate with letter board -hoping for more PT/OT -inpt rehab eval # BPH. Chronic, has indwelling Rader catheter, no evidence of urinary tract infection on UA # asymptomatic bacteruria with chronic rader -arder changed on admission # Stage II sacral decubitus ulcers. Present on arrival, seen in consultation by wound care, stage 1-2, observed dressing change today Diet. Tube feeds at goal. Prophylaxis. High risk patient, Lovenox 40 Code. Full Disposition. plan to complete 14 days of treatment with iv abx for asp pna. cont stepdown until dc due to trach care Subjective: Pt finally starting to feel some improvement. Less secretions. He denies CP or SOB. He wants to do more rehab here. No fevers. Objective: Vital Signs Temp Pulse Resp BP Pulse Ox 37.1 C 76 12 121/81 H 95 10/05/16 07:30 10/05/16 07:30 10/05/16 07:30 10/05/16 07:30 10/05/16 07:30 Microbiology 10/03/16 16:45 Gram Stain - Final Lung Bilateral - Bronchial Washings Laboratory Results 10/02/16 03:30 10/04/16 04:36 10/04/16 10/05/16 10/06/16 05:59 05:59 05:59 Intake Total 1902 1927 Output Total 2510 1350 Balance -608 577 PT 14.7 SEC (12.0-15.0) 09/28/16 05:55 INR 1.15 (0.83-1.16) 09/28/16 05:55 - Physical Exam Constitutional: no apparent distress Eyes: PERRL Ears, Nose, Mouth, Throat: moist mucous membranes Cardiovascular: regular rate and rhythym Respiratory: no respiratory distress, bronchial breath sounds Gastrointestinal: normoactive bowel sounds, soft, non-tender abdomen Skin: warm Neurologic: AAOx3, other (right sided hemiparesis) Psychiatric: interacting appropriately ICD10 Worksheet Patient Problems: Problems Problem Status Diagnosed Acute bronchitis Acute Hematemesis Acute Hypoxia Acute Tracheostomy complication Acute Vomiting Acute Constipation Acute Cough Acute DVT (deep venous thrombosis) Acute Decubitus skin ulcer Acute Fall from bed, initial encounter Acute Fever Acute Laceration of forehead Acute Nutrition disorder Acute Pneumonia Acute Respiratory distress Acute Subarachnoid hemorrhage following injury Acute Subdural hemorrhage Acute Tachycardia Acute
--- NOTE | 2016-10-05 16:55 | PDINTPN ---
Propellant Assembler Progress Note Assessment/Plan: Assessment: * S/P intracerebral hemorrhage in past -quadriparesis * S/P trach * Resp failure- 2/2 secretions/bronchopneumonia, with bronchorrhea. Also with markedly positive I/O: on lasix * Bronchorrhea- secretions continue to improve, rhonchi much better today. -cont abx/steroids -cont diurese -cont glycopyrrolate * N/V-resolved * Diarrhea-resolved * Sacral decub * HTN: BPs okay Plan: Continue care. Can transfer to a medical-surgical status at this point. Disposition issues in progress. Continue current medications, bronchodilator therapy and steroids. Continue Ertapenem and glycopyrrolate. OT and PT involved. Disposition: Consider inpatient rehabilitation verses SNF. Subjective: feels better. Secretions are significantly less. Denies shortness of jory Objective: Vital Signs Temp Pulse Resp BP Pulse Ox 35.9 C L 79 16 116/76 92 10/05/16 15:54 10/05/16 15:54 10/05/16 15:54 10/05/16 15:54 10/05/16 15:54 Microbiology 10/03/16 16:45 Gram Stain - Final Lung Bilateral - Bronchial Washings Bronchial Washings Culture - Final Laboratory Results 10/02/16 03:30 10/04/16 04:36 10/04/16 10/05/16 10/06/16 05:59 05:59 05:59 Intake Total 1902 1927 Output Total 2510 1350 Balance -608 577 PT 14.7 SEC (12.0-15.0) 09/28/16 05:55 INR 1.15 (0.83-1.16) 09/28/16 05:55 Bronch wash: Only mixed oral sheree so far. Physical Exam - Physical Exam General Appearance: alert, no apparent distress, other ( Up in chair today) EENT: PERRL/EOMI, other ( decreased oral secretions) Neck: other ( trach collar in place) Respiratory: lungs clear ( anteriorly), decreased breath sounds ( at bases), rhonchi ( essentially no rhonchi today, much better compared to yesterday. Not requiring suction.) Cardiac/Chest: regular rate, rhythm Abdomen: normal bowel sounds ( G-tube in place), non-tender, soft Male Genitalia: other ( Alfaro catheter: chronic, good urine output.) Skin: normal color, warm/dry Extremities: pedal edema Neuro/Psych: cognition abnormalities ( unchanged), No no motor/sensory deficits ( Unchanged) ICD10 Worksheet Patient Problems: Problems Problem Status Diagnosed Acute bronchitis Acute Hematemesis Acute Hypoxia Acute Tracheostomy complication Acute Vomiting Acute Constipation Acute Cough Acute DVT (deep venous thrombosis) Acute Decubitus skin ulcer Acute Fall from bed, initial encounter Acute Fever Acute Laceration of forehead Acute Nutrition disorder Acute Pneumonia Acute Respiratory distress Acute Subarachnoid hemorrhage following injury Acute Subdural hemorrhage Acute Tachycardia Acute
[2016-10-05] MEDS: ALPRAZolam 0.25 MG TAB TUBE SCH (20:04)
[2016-10-05] MEDS: MELATONIN 3 MG TAB TUBE SCH (20:04)
[2016-10-05] MEDS: ATORVASTATIN CALCIUM 40 MG TAB TUBE SCH (20:04)
[2016-10-05] MEDS: DOXAZOSIN MESYLATE 1 MG TAB TUBE SCH (20:04)
[2016-10-06] MEDS: ACETYLCYSTEINE 20% IH SCH ×2 (05:58→10:32)
[2016-10-06] MEDS: IPRATROPIUM/ALBUTEROL 3 ML DEYVIAL IH SCH ×4 (05:58→21:57)
[2016-10-06 06:19] LABS: ANION GAP 7 mEq/L (8-16); CALCIUM 9.4 mg/dL (8.5-10.4); CARBON DIOXIDE 38 mEq/l (22-31); CHLORIDE 98 mEq/L (97-110); CREATININE 0.6 mg/dL (0.7-1.3); GLOMERULAR FILTRATION RATE > 60; GLUCOSE 92 mg/dL (70-100); POTASSIUM 4.1 mEq/L (3.5-5.2); SODIUM 143 mEq/L (134-144)
[2016-10-06] MEDS ORDERED: oxyCODONE IR 5 MG TAB TUBE PRN (08:12)
--- NOTE | 2016-10-06 08:21 | DX ---
Single Frontal Chest October 06, 2016 Clinical Indication: Follow up atelectasis. Comparison: October 04, 2016. Findings: A tracheostomy tube is seen in the upper trachea. Mild bibasilar atelectatic changes are ag ain present. Small amount of residual barium is seen in the stomach and in the colon. Moderate degene rative changes of the shoulders are present. A RENAL MEDICINE SPECIALIST shunt is seen coursing along the right chest and ri ght abdomen. Multiple lines and leads are present. Impression: Stable bibasilar subsegmental atelectasis.
[2016-10-06] MEDS: SENNOSIDES 17.6 MG/10 ML UDL TUBE SCH ×2 (09:31→21:00)
[2016-10-06] MEDS: predniSONE 20 MG TAB TUBE SCH (09:32)
[2016-10-06] MEDS: SERTRALINE HCL 50 MG TAB TUBE SCH (09:32)
[2016-10-06] MEDS: GLYCOPYRROLATE 1 MG TAB PO SCH ×2 (09:32→20:59)
[2016-10-06] MEDS: FAMOTIDINE 20 MG TAB TUBE SCH ×2 (09:33→20:59)
[2016-10-06] MEDS: ENOXAPARIN 40 MG/0.4 ML SYR SC SCH (09:34)
[2016-10-06] MEDS: guaiFENesin 200 MG/10 ML UDCUP TUBE SCH ×3 (09:34→20:59)
[2016-10-06] MEDS: ERTAPENEM 1 GM in NS 100 ML IV SCH (09:38)
--- NOTE | 2016-10-06 11:43 | HOSPPROG ---
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 Exam: alert oriented skin warm dry color ok resps not labored lungs very diminished BSs heart regular abd soft nondistended nontender, bowel sounds present limbs warm, no edema iv site ok I reviewed today's chest x-ray images: I do not see at active infiltrates at this time, still some atelectasis Objective: Vital Signs Temp Pulse Resp BP Pulse Ox 37.1 C 74 18 114/74 94 10/06/16 08:00 10/06/16 10:32 10/06/16 10:32 10/06/16 08:00 10/06/16 10:32 Microbiology 10/03/16 16:45 Gram Stain - Final Lung Bilateral - Bronchial Washings Bronchial Washings Culture - Final Laboratory Results 10/02/16 03:30 10/06/16 05:30 10/05/16 10/06/16 10/07/16 06:59 06:59 06:59 Intake Total 1927 2222 Output Total 1350 1250 Balance 577 972 PT 14.7 SEC (12.0-15.0) 09/28/16 05:55 INR 1.15 (0.83-1.16) 09/28/16 05:55 ICD10 Worksheet Patient Problems: Problems Problem Status Diagnosed Acute bronchitis Acute Hematemesis Acute Hypoxia Acute Tracheostomy complication Acute Vomiting Acute Constipation Acute Cough Acute DVT (deep venous thrombosis) Acute Decubitus skin ulcer Acute Fall from bed, initial encounter Acute Fever Acute Laceration of forehead Acute Nutrition disorder Acute Pneumonia Acute Respiratory distress Acute Subarachnoid hemorrhage following injury Acute Subdural hemorrhage Acute Tachycardia Acute
--- NOTE | 2016-10-06 12:46 | PDINTPN ---
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 Also with markedly positive I/O: on lasix * Bronchorrhea- resolving, on glycopyrrolate, rhonchi much better today. -cont ertapenem (day 6 of -), decrease steroids -cont diurese -decrease glycopyrrolate * N/V-resolved * Diarrhea-resolved * Sacral decub: Small, present on admission * HTN: BPs okay * Disposition: Looking at inpatient rehab verses other possibilities. Plan: Continue present care. Continue current medications, bronchodilators, Ertapenem. Will decrease prednisone and glycopyrrolate. OT and PT involved. Disposition: inpatient rehabilitation verses SNF. Subjective: Doing okay, indicates he is not short of breath. Denies pain. Objective: Vital Signs Temp Pulse Resp BP Pulse Ox 36.3 C 77 16 118/67 93 10/06/16 11:45 10/06/16 11:45 10/06/16 11:45 10/06/16 11:45 10/06/16 11:45 Microbiology 10/03/16 16:45 Gram Stain - Final Lung Bilateral - Bronchial Washings Bronchial Washings Culture - Final Laboratory Results 10/02/16 03:30 10/06/16 05:30 10/05/16 10/06/16 10/07/16 05:59 05:59 05:59 Intake Total 1927 2222 Output Total 1350 1250 Balance 577 972 PT 14.7 SEC (12.0-15.0) 09/28/16 05:55 INR 1.15 (0.83-1.16) 09/28/16 05:55 CXR: No change, no significant infiltrates, no significant atelectasis Physical Exam - Physical Exam General Appearance: alert, no apparent distress, other (Up in the chair) EENT: PERRL/EOMI Neck: other (Trach in place, trach collar) Respiratory: lungs clear (Anteriorly), rhonchi (Minimal), No respiratory distress, No rales, No wheezing Cardiac/Chest: regular rate, rhythm Abdomen: normal bowel sounds, non-tender, soft, other (G-tube fine, tolerating tube feedings without problems) Male Genitalia: deferred ( output), other (Chronic Alfaro catheter in place,) Skin: normal color, warm/dry Extremities: pedal edema Neuro/Psych: cognition abnormalities (No change in neurologic status, brighter if anything), No no motor/sensory deficits ICD10 Worksheet Patient Problems: Problems Problem Status Diagnosed Acute bronchitis Acute Hematemesis Acute Hypoxia Acute Tracheostomy complication Acute Vomiting Acute Constipation Acute Cough Acute DVT (deep venous thrombosis) Acute Decubitus skin ulcer Acute Fall from bed, initial encounter Acute Fever Acute Laceration of forehead Acute Nutrition disorder Acute Pneumonia Acute Respiratory distress Acute Subarachnoid hemorrhage following injury Acute Subdural hemorrhage Acute Tachycardia Acute
[2016-10-06] MEDS: MELATONIN 3 MG TAB TUBE SCH (20:59)
[2016-10-06] MEDS: ALPRAZolam 0.25 MG TAB TUBE SCH (20:59)
[2016-10-06] MEDS: ATORVASTATIN CALCIUM 40 MG TAB TUBE SCH (20:59)
[2016-10-06] MEDS: DOXAZOSIN MESYLATE 1 MG TAB TUBE SCH (20:59)
[2016-10-07] MEDS: IPRATROPIUM/ALBUTEROL 3 ML DEYVIAL IH SCH ×4 (05:46→21:06)
[2016-10-07] MEDS: ENOXAPARIN 40 MG/0.4 ML SYR SC SCH (09:06)
[2016-10-07] MEDS: ERTAPENEM 1 GM in NS 100 ML IV SCH (09:06)
[2016-10-07] MEDS: predniSONE 20 MG TAB TUBE SCH (09:07)
[2016-10-07] MEDS: guaiFENesin 200 MG/10 ML UDCUP TUBE SCH ×3 (09:07→20:47)
[2016-10-07] MEDS: GLYCOPYRROLATE 1 MG TAB PO SCH ×3 (09:08→22:52)
[2016-10-07] MEDS: FAMOTIDINE 20 MG TAB TUBE SCH ×2 (09:08→20:48)
[2016-10-07] MEDS: SERTRALINE HCL 50 MG TAB TUBE SCH (09:08)
[2016-10-07] MEDS: SENNOSIDES 17.6 MG/10 ML UDL TUBE SCH ×2 (09:09→20:47)
[2016-10-07] MEDS: POLYETHYLENE GLYCOL 3350 17 GM PKT TUBE PRN (09:09)
[2016-10-07] MEDS: SCOPOLAMINE HYDROBROMIDE 1.5 MG PATCH TD SCH (13:13)
--- NOTE | 2016-10-07 15:27 | PDINTPN ---
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 Also with markedly positive I/O: on lasix * Bronchorrhea- resolving, on decreased glycopyrrolate rhonchi and secretions have increased. -cont ertapenem (day 7 of 07-08), decrease steroids -cont diurese -increase glycopyrrolate back to 1 mg three times daily * N/V-resolved * Diarrhea-resolved * Sacral decub: Small, present on admission * HTN: BPs okay * Disposition: Looking at inpatient rehab: Hopefully early next week. Plan: Continue present care. Continue current medications, bronchodilators, Ertapenem. Will continue prednisone at 30 mg per day and and increased glycopyrrolate back to three times daily. OT and PT involved. Disposition: inpatient rehabilitation Monday. Subjective: More secretions again today. Otherwise unchanged. Feels okay. Objective: Vital Signs Temp Pulse Resp BP Pulse Ox 37.2 C 86 20 138/80 H 90 L 10/07/16 15:16 10/07/16 15:16 10/07/16 15:16 10/07/16 15:16 10/07/16 15:16 Laboratory Results 10/02/16 03:30 10/06/16 05:30 10/06/16 10/07/16 10/08/16 05:59 05:59 05:59 Intake Total 2222 2126 70 Output Total 1250 1275 Balance 972 851 70 PT 14.7 SEC (12.0-15.0) 09/28/16 05:55 INR 1.15 (0.83-1.16) 09/28/16 05:55 Physical Exam - Physical Exam General Appearance: alert, no apparent distress (In chair) EENT: other (Trach collar in place. Some secretions from tracheostomy to) Neck: other (Trach collar) Respiratory: rhonchi (Increased today), No lungs clear, No normal breath sounds Cardiac/Chest: regular rate, rhythm Abdomen: normal bowel sounds, non-tender, soft, other (Peg tube in place, tolerating tube feeding) Male Genitalia: other (Chronic Alfaro catheter in place.) Back: Normal inspection Skin: warm/dry, pallor Extremities: pedal edema Neuro/Psych: cognition abnormalities, other (No change in neurologic status, stable), No no motor/sensory deficits ICD10 Worksheet Patient Problems: Problems Problem Status Diagnosed Acute bronchitis Acute Hematemesis Acute Hypoxia Acute Tracheostomy complication Acute Vomiting Acute Constipation Acute Cough Acute DVT (deep venous thrombosis) Acute Decubitus skin ulcer Acute Fall from bed, initial encounter Acute Fever Acute Laceration of forehead Acute Nutrition disorder Acute Pneumonia Acute Respiratory distress Acute Subarachnoid hemorrhage following injury Acute Subdural hemorrhage Acute Tachycardia Acute
--- NOTE | 2016-10-07 17:07 | HOSPPROG ---
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 Exam: alert oriented skin warm dry color ok resps not labored lungs very diminished BSs heart regular abd soft nondistended nontender, bowel sounds present limbs warm, no edema iv site ok Objective: Vital Signs Temp Pulse Resp BP Pulse Ox 37.2 C 86 20 138/80 H 90 L 10/07/16 15:16 10/07/16 15:16 10/07/16 15:16 10/07/16 15:16 10/07/16 15:16 Laboratory Results 10/02/16 03:30 10/06/16 05:30 10/06/16 10/07/16 10/08/16 06:59 06:59 06:59 Intake Total 2222 2126 70 Output Total 1250 1275 Balance 972 851 70 PT 14.7 SEC (12.0-15.0) 09/28/16 05:55 INR 1.15 (0.83-1.16) 09/28/16 05:55 ICD10 Worksheet Patient Problems: Problems Problem Status Diagnosed Acute bronchitis Acute Hematemesis Acute Hypoxia Acute Tracheostomy complication Acute Vomiting Acute Constipation Acute Cough Acute DVT (deep venous thrombosis) Acute Decubitus skin ulcer Acute Fall from bed, initial encounter Acute Fever Acute Laceration of forehead Acute Nutrition disorder Acute Pneumonia Acute Respiratory distress Acute Subarachnoid hemorrhage following injury Acute Subdural hemorrhage Acute Tachycardia Acute
[2016-10-07] MEDS ORDERED: MAG HYDROX/AL HYDROX/SIMETH 30 ML UDCUP PO PRN (20:26)
[2016-10-07] MEDS: ALPRAZolam 0.25 MG TAB TUBE SCH (20:47)
[2016-10-07] MEDS: MELATONIN 3 MG TAB TUBE SCH (20:48)
[2016-10-07] MEDS: ATORVASTATIN CALCIUM 40 MG TAB TUBE SCH (20:48)
[2016-10-07] MEDS: DOXAZOSIN MESYLATE 1 MG TAB TUBE SCH (22:51)
[2016-10-08 04:41] LABS: % IMMATURE GRANULYOCYTES 0.4 % (0.0-1.1); ABSOLUTE IMMATURE GRANULOCYTES 0.04 10^3/uL (0.00-0.10); ADD DIFF? NO; ADD MORPH? NO; ADD SCAN? NO; ATYPICAL LYMPHOCYTE FLAG 0 (0-99); FRAGMENT RBC FLAG 0 (0-99); HEMATOCRIT 35.4 % (40.0-51.0); HEMOGLOBIN 11.9 g/dL (13.7-17.5); LEFT SHIFT FLG 0 (0-99); LIPEMIA HEMOLYSIS FLAG 80 (0-99); MEAN CELL HEMOGLOBIN 28.9 pg (27.9-34.1); MEAN CELL HEMOGLOBIN CONCENTR. 33.6 g/dL (32.4-36.7); MEAN CELL VOLUME 85.9 fL (81.5-99.8); MEAN PLATELET VOLUME 10.1 fL (8.7-11.7); PLATELET CLUMPS FLAG 0 (0-99); PLATELET COUNT 180 10^3/uL (150-400); RED BLOOD CELL COUNT 4.12 10^6/uL (4.40-6.38)
[2016-10-08] MEDS: IPRATROPIUM/ALBUTEROL 3 ML DEYVIAL IH SCH ×4 (04:51→20:18)
[2016-10-08 04:55] LABS: ANION GAP 11 mEq/L (8-16); CALCIUM 9.2 mg/dL (8.5-10.4); CARBON DIOXIDE 34 mEq/l (22-31); CHLORIDE 100 mEq/L (97-110); CREATININE 0.6 mg/dL (0.7-1.3); GLOMERULAR FILTRATION RATE > 60; GLUCOSE 109 mg/dL (70-100); MAGNESIUM 2.1 mg/dL (1.6-2.3); SODIUM 145 mEq/L (134-144)
--- NOTE | 2016-10-08 05:59 | SOAPPROG ---
SOAP Progress Note Assessment/Plan: Hospitalist Cross-cover note Called to bedside by RN with increased O2 needs suddenly. On trach collar earlier last lj doing well on 40% Fio2, now at 100% and sats upper 80s S: He feels a small amount of SOB. O: 91%, Fio2 100% Gen: NAD HEENT: trached CV: RRR Lungs: audible rhonchi, decreased BS A&P: #Acute on chronic hypoxemic resp failure -suspect mucus plug. Sats improved after deep suctioning -reviewed CXr fro 10/06 and no significant edema -Repeat CXR -has scopalamine patch and glycopyylorate 10/08/16 05:54 10/08/16 05:55 10/08/16 05:59 Objective: Vital Signs Temp Pulse Resp BP Pulse Ox 37.3 C 75 18 130/83 H 92 10/08/16 04:00 10/08/16 04:00 10/08/16 04:52 10/08/16 04:00 10/08/16 04:52 Laboratory Results 10/08/16 04:02 10/08/16 04:02 10/06/16 10/07/16 10/08/16 05:59 05:59 05:59 Intake Total 2222 2126 2453 Output Total 1250 1275 1800 Balance 972 851 653 PT 14.7 SEC (12.0-15.0) 09/28/16 05:55 INR 1.15 (0.83-1.16) 09/28/16 05:55 ICD10 Worksheet Patient Problems: Problems Problem Status Diagnosed Acute bronchitis Acute Hematemesis Acute Hypoxia Acute Tracheostomy complication Acute Vomiting Acute Constipation Acute Cough Acute DVT (deep venous thrombosis) Acute Decubitus skin ulcer Acute Fall from bed, initial encounter Acute Fever Acute Laceration of forehead Acute Nutrition disorder Acute Pneumonia Acute Respiratory distress Acute Subarachnoid hemorrhage following injury Acute Subdural hemorrhage Acute Tachycardia Acute
[2016-10-08] MEDS: SENNOSIDES 17.6 MG/10 ML UDL TUBE SCH ×2 (09:15→21:15)
[2016-10-08] MEDS: ENOXAPARIN 40 MG/0.4 ML SYR SC SCH (09:15)
[2016-10-08] MEDS: ERTAPENEM 1 GM in NS 100 ML IV SCH (09:15)
[2016-10-08] MEDS: guaiFENesin 200 MG/10 ML UDCUP TUBE SCH ×3 (09:17→21:15)
--- NOTE | 2016-10-08 09:26 | DX ---
Portable Chest October 08, 2016 0611 hours Clinical Indications: Follow up atelectasis; comparison October 06, 2016. Findings: Heart size remains normal. There has been increase in opacity at the right lung base which could reflect either a progressive atelectasis or less likely developing pneumonia. There is persiste nt left basilar atelectasis. The tracheostomy tube is in stable position. Scoliosis and spinal degene rative changes are noted. The proximal right humerus as well as the right scapula have a somewhat mot tled appearance which is probably degenerative. Right shoulder radiography is recommended for further evaluation. Impression: 1. Increasing right basilar opacity which is probably progressive atelectasis rather than pneumonia. Clinical correlation is recommended. 2. Mottled appearance of the right shoulder with shoulder radiography recommended.
[2016-10-08] MEDS: FAMOTIDINE 20 MG TAB TUBE SCH ×2 (09:30→21:15)
[2016-10-08] MEDS: SERTRALINE HCL 50 MG TAB TUBE SCH (09:31)
[2016-10-08] MEDS ORDERED: predniSONE 10 MG TAB ONE (09:35)
[2016-10-08] MEDS: predniSONE 20 MG TAB TUBE SCH (09:38)
[2016-10-08] MEDS: GLYCOPYRROLATE 1 MG TAB PO SCH ×3 (14:57→21:15)
--- NOTE | 2016-10-08 17:40 | HOSPPROG ---
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 He also had a bout of fever early this morning. At this time he does not feel short of breath or have symptoms of fever had another good day with physical and occupational therapy today, has not worked with speech therapy today yet OBJECTIVE Vitals reviewed: Stable without fever media monitor, 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 Exam: alert oriented skin warm dry color ok resps not labored at this time lungs very diminished BSs heart regular abd soft nondistended nontender, bowel sounds present limbs warm, no edema iv site ok Objective: Vital Signs Temp Pulse Resp BP Pulse Ox 37.7 C 88 18 113/73 96 10/08/16 15:55 10/08/16 15:55 10/08/16 15:55 10/08/16 15:55 10/08/16 15:55 Laboratory Results 10/08/16 04:02 10/08/16 04:02 10/07/16 10/08/16 10/09/16 06:59 06:59 06:59 Intake Total 2126 2453 1365 Output Total 1275 1800 800 Balance 851 653 565 PT 14.7 SEC (12.0-15.0) 09/28/16 05:55 INR 1.15 (0.83-1.16) 09/28/16 05:55 ICD10 Worksheet Patient Problems: Problems Problem Status Diagnosed Acute bronchitis Acute Hematemesis Acute Hypoxia Acute Tracheostomy complication Acute Vomiting Acute Constipation Acute Cough Acute DVT (deep venous thrombosis) Acute Decubitus skin ulcer Acute Fall from bed, initial encounter Acute Fever Acute Laceration of forehead Acute Nutrition disorder Acute Pneumonia Acute Respiratory distress Acute Subarachnoid hemorrhage following injury Acute Subdural hemorrhage Acute Tachycardia Acute
--- NOTE | 2016-10-08 18:14 | PDINTPN ---
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 Also with markedly positive I/O: on lasix * Bronchorrhea- resolving, secretions down again with increased glycopyrrlate. -cont ertapenem (day 7 of 07-08), decrease steroids -cont diurese -increase glycopyrrolate back to 1 mg three times daily * N/V-resolved * Diarrhea-resolved * Sacral decub: Small, present on admission * HTN: BPs okay * Disposition: Looking at inpatient rehab: Hopefully early next week. Plan: Continue present care. Continue current medications, bronchodilators, Ertapenem. Will decreased prednisone to 30 mg per day. Continue glycopyrrolate and scopolamine patch. OT and PT involved. Disposition: inpatient rehabilitation Monday. Subjective: Feels better today, less secretions. Feels his breathing is quite good. Denies significant pain. Looking forward to going to rehab. Objective: Vital Signs Temp Pulse Resp BP Pulse Ox 37.7 C 88 18 113/73 96 10/08/16 15:55 10/08/16 15:55 10/08/16 15:55 10/08/16 15:55 10/08/16 15:55 Laboratory Results 10/08/16 04:02 10/08/16 04:02 10/07/16 10/08/16 10/09/16 05:59 05:59 05:59 Intake Total 2126 2453 1365 Output Total 1275 1800 1075 Balance 851 653 290 PT 14.7 SEC (12.0-15.0) 09/28/16 05:55 INR 1.15 (0.83-1.16) 09/28/16 05:55 CXR: Some atelectasis developing at the right base Physical Exam - Physical Exam General Appearance: alert, no apparent distress EENT: No PERRL/EOMI Neck: other (Tracheostomy tube with trach collar in place. No secretions today. ) Respiratory: decreased breath sounds (Course, very few rhonchi present today, no bubbly secretions), rhonchi, No rales, No wheezing Cardiac/Chest: regular rate, rhythm Abdomen: normal bowel sounds (Peg tube in place), non-tender, soft Male Genitalia: other (Chronic Alfaro catheter) Skin: normal color, warm/dry Extremities: pedal edema Neuro/Psych: cognition abnormalities (No changes in neurologic status), No no motor/sensory deficits ICD10 Worksheet Patient Problems: Problems Problem Status Diagnosed Acute bronchitis Acute Hematemesis Acute Hypoxia Acute Tracheostomy complication Acute Vomiting Acute Constipation Acute Cough Acute DVT (deep venous thrombosis) Acute Decubitus skin ulcer Acute Fall from bed, initial encounter Acute Fever Acute Laceration of forehead Acute Nutrition disorder Acute Pneumonia Acute Respiratory distress Acute Subarachnoid hemorrhage following injury Acute Subdural hemorrhage Acute Tachycardia Acute
[2016-10-08] MEDS: ALPRAZolam 0.25 MG TAB TUBE SCH (19:53)
[2016-10-08] MEDS: MELATONIN 3 MG TAB TUBE SCH (19:53)
[2016-10-08] MEDS: ATORVASTATIN CALCIUM 40 MG TAB TUBE SCH (19:53)
[2016-10-08] MEDS: DOXAZOSIN MESYLATE 1 MG TAB TUBE SCH (19:53)
[2016-10-09] MEDS: IPRATROPIUM/ALBUTEROL 3 ML DEYVIAL IH SCH ×4 (05:00→22:02)
[2016-10-09] MEDS: FAMOTIDINE 20 MG TAB TUBE SCH ×2 (10:43→20:38)
[2016-10-09] MEDS: guaiFENesin 200 MG/10 ML UDCUP TUBE SCH ×3 (10:43→20:39)
[2016-10-09] MEDS: SERTRALINE HCL 50 MG TAB TUBE SCH (10:43)
[2016-10-09] MEDS: ENOXAPARIN 40 MG/0.4 ML SYR SC SCH (10:43)
[2016-10-09] MEDS: SENNOSIDES 17.6 MG/10 ML UDL TUBE SCH ×2 (10:44→20:40)
[2016-10-09] MEDS: GLYCOPYRROLATE 1 MG TAB PO SCH ×3 (10:44→20:38)
[2016-10-09] MEDS: predniSONE 20 MG TAB TUBE SCH (10:44)
[2016-10-09] MEDS: ERTAPENEM 1 GM in NS 100 ML IV SCH (10:58)
--- NOTE | 2016-10-09 15:04 | HOSPPROG ---
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 # PRERENAL AZOTEMIA # CHRONIC DEVICE IS IN PLACE INCLUDE TRACHEOSTOMY, PEG TUBE, MANCERA CATHETER PLANS: -continue current antibiotics -follow cultures from 10/08 -Continue current pulmonary care, with intermittent suctioning as needed -Wound care nurse for his decubitus ulcer, as well as preventive measures including nutrition -DVT prophylaxis SUBJECTIVE: Today he has no acute symptoms No worsening dyspnea, no cough, no abdominal discomfort or nausea, moving bowels okay, no new pains or discomforts otherwise Chronic urinary catheter remains in place OBJECTIVE Vitals reviewed: Again this afternoon is a temperature of 38.3degrees, 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, 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 Exam: alert oriented relaxed skin warm dry color ok; no ulcers, rashes or other concerning lesions other than his chronic decubitus sore which is stable resps not labored at this time lungs very diminished BSs but no wheeze rales or rhonchi Tracheostomy in good condition heart regular abd soft nondistended nontender, bowel sounds present limbs warm, no edema iv site ok left forearm Blood cultures from October 08 negative so far Objective: Vital Signs Temp Pulse Resp BP Pulse Ox 38.3 C 83 19 120/71 92 10/09/16 12:20 10/09/16 12:20 10/09/16 12:20 10/09/16 12:20 10/09/16 12:20 Laboratory Results 10/08/16 04:02 10/08/16 04:02 10/08/16 10/09/16 10/10/16 06:59 06:59 06:59 Intake Total 2453 2690 Output Total 1800 1625 Balance 653 1065 PT 14.7 SEC (12.0-15.0) 09/28/16 05:55 INR 1.15 (0.83-1.16) 09/28/16 05:55 ICD10 Worksheet Patient Problems: Problems Problem Status Diagnosed Acute bronchitis Acute Hematemesis Acute Hypoxia Acute Tracheostomy complication Acute Vomiting Acute Constipation Acute Cough Acute DVT (deep venous thrombosis) Acute Decubitus skin ulcer Acute Fall from bed, initial encounter Acute Fever Acute Laceration of forehead Acute Nutrition disorder Acute Pneumonia Acute Respiratory distress Acute Subarachnoid hemorrhage following injury Acute Subdural hemorrhage Acute Tachycardia Acute
[2016-10-09 17:14] LABS: COLOR YELLOW; LEUKOCYTE ESTERASE,URINE NEGATIVE (NEGATIVE); NITRITE,URINE NEGATIVE (NEGATIVE)
[2016-10-09 17:23] LABS: MUCUS TRACE /lpf (NONE-1+); RBC,URINE 50-182 /hpf (0-3); WBC,URINE NONE SEEN /hpf (0-3)
--- NOTE | 2016-10-09 18:49 | SOAPPROG ---
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 Also with markedly positive I/O: on lasix * Bronchorrhea- resolving, secretions better with glycopyrrlate. -on ertapenem (day 9 of 10) -cont diuresis -cont glycopyrrolate tid * N/V-resolved * Diarrhea-resolved * Sacral decub: Small, present on admission * HTN: BPs okay * Disposition: Looking at inpatient rehab: Hopefully tomorrow. Plan: Continue present care. Continue current medications, bronchodilators, Ertapenem. Will decreased prednisone to 20 mg per day. Continue glycopyrrolate and scopolamine patch. OT and PT involved. Disposition: inpatient rehabilitation Monday. Subjective: Doing okay. Sleeping currently. Arouses. Denies significant shortness of breath. Denies pain Objective: Vital Signs Temp Pulse Resp BP Pulse Ox 38.0 C 77 18 120/78 95 10/09/16 15:18 10/09/16 16:36 10/09/16 16:36 10/09/16 15:18 10/09/16 16:36 Laboratory Results 10/08/16 04:02 10/08/16 04:02 10/08/16 10/09/16 10/10/16 05:59 05:59 05:59 Intake Total 2453 2690 710 Output Total 1800 1625 1050 Balance 653 1065 -340 PT 14.7 SEC (12.0-15.0) 09/28/16 05:55 INR 1.15 (0.83-1.16) 09/28/16 05:55 Physical Exam - Physical Exam General Appearance: no apparent distress, obese, other (Unchanged) EENT: No PERRL/EOMI Neck: other (Trach, trach collar) Respiratory: decreased breath sounds, rhonchi (Some central secretions/rhonchi present. Slightly more than yesterday but overall improved), No wheezing Cardiac/Chest: regular rate, rhythm Abdomen: normal bowel sounds, non-tender, soft, other (Gastric tube in place.) Male Genitalia: other (Chronic Alfaro catheter) Skin: normal color, warm/dry Extremities: pedal edema (Trace +) Neuro/Psych: cognition abnormalities, other (No changes in neurologic status), No no motor/sensory deficits ICD10 Worksheet Patient Problems: Problems Problem Status Diagnosed Acute bronchitis Acute Hematemesis Acute Hypoxia Acute Tracheostomy complication Acute Vomiting Acute Constipation Acute Cough Acute DVT (deep venous thrombosis) Acute Decubitus skin ulcer Acute Fall from bed, initial encounter Acute Fever Acute Laceration of forehead Acute Nutrition disorder Acute Pneumonia Acute Respiratory distress Acute Subarachnoid hemorrhage following injury Acute Subdural hemorrhage Acute Tachycardia Acute
[2016-10-09] MEDS: ALPRAZolam 0.25 MG TAB TUBE SCH (20:35)
[2016-10-09] MEDS: MELATONIN 3 MG TAB TUBE SCH (20:38)
[2016-10-09] MEDS: DOXAZOSIN MESYLATE 1 MG TAB TUBE SCH (20:38)
[2016-10-09] MEDS: ATORVASTATIN CALCIUM 40 MG TAB TUBE SCH (20:40)
[2016-10-10] MEDS: IPRATROPIUM/ALBUTEROL 3 ML DEYVIAL IH SCH ×4 (03:33→21:19)
[2016-10-10] MEDS: guaiFENesin 200 MG/10 ML UDCUP TUBE SCH ×3 (08:48→21:48)
[2016-10-10] MEDS: ENOXAPARIN 40 MG/0.4 ML SYR SC SCH (08:48)
[2016-10-10] MEDS: ERTAPENEM 1 GM in NS 100 ML IV SCH (08:49)
[2016-10-10] MEDS: GLYCOPYRROLATE 1 MG TAB PO SCH ×3 (08:49→21:48)
[2016-10-10] MEDS: predniSONE 20 MG TAB TUBE SCH (08:49)
[2016-10-10] MEDS: SENNOSIDES 17.6 MG/10 ML UDL TUBE SCH ×2 (08:49→21:47)
[2016-10-10] MEDS: FAMOTIDINE 20 MG TAB TUBE SCH ×2 (08:49→21:48)
[2016-10-10] MEDS: SERTRALINE HCL 50 MG TAB TUBE SCH (08:49)
[2016-10-10] MEDS ORDERED: FUROSEMIDE 20 MG/2 ML VIAL IVP ONE ×2 (10:10→13:00)
--- NOTE | 2016-10-10 10:11 | SOAPPROG ---
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 Also with markedly positive I/O: on lasix * Bronchorrhea- resolving, secretions better with glycopyrrlate. -on ertapenem (day 10 of 10) -cont diuresis -cont glycopyrrolate tid * N/V-resolved * Diarrhea-resolved * Sacral decub: Small, present on admission * HTN: BPs okay * Disposition: Looking at inpatient rehab: Hopefully tomorrow. Plan: Continue present care. Continue current medications, bronchodilators. Can DC ertapenem today. Wean prednisone slowly. Continue glycopyrrolate and scopolamine patch. Continue OT and PT. Inpatient rehabilitation today is the plan. We can follow him intermittently on rehab as our office is connected to the building. Subjective: Doing well. Denies significant shortness of breath. Denies pain. Appropriate regarding responses. Increased secretions noted. Objective: Vital Signs Temp Pulse Resp BP Pulse Ox 37.0 C 55 L 14 113/72 97 10/10/16 08:00 10/10/16 08:00 10/10/16 08:00 10/10/16 08:00 10/10/16 08:00 Laboratory Results 10/08/16 04:02 10/08/16 04:02 10/09/16 10/10/16 10/11/16 05:59 05:59 05:59 Intake Total 2690 2025 Output Total 1625 1600 Balance 1065 425 PT 14.7 SEC (12.0-15.0) 09/28/16 05:55 INR 1.15 (0.83-1.16) 09/28/16 05:55 Physical Exam - Physical Exam General Appearance: alert, no apparent distress EENT: No PERRL/EOMI Neck: other (Tracheostomy tube in place, trach collar, increased secretions being suctioned) Respiratory: decreased breath sounds, rhonchi (And central congestion secondary to secretions), No lungs clear Cardiac/Chest: regular rate, rhythm, bradycardia Abdomen: normal bowel sounds, non-tender, soft, other (Peg tube in place, tolerating tube feeding) Male Genitalia: other (Chronic Alfaro catheter) Skin: normal color, warm/dry Extremities: pedal edema Neuro/Psych: other (Neuro status without change), No no motor/sensory deficits ICD10 Worksheet Patient Problems: Problems Problem Status Diagnosed Acute bronchitis Acute Hematemesis Acute Hypoxia Acute Tracheostomy complication Acute Vomiting Acute Constipation Acute Cough Acute DVT (deep venous thrombosis) Acute Decubitus skin ulcer Acute Fall from bed, initial encounter Acute Fever Acute Laceration of forehead Acute Nutrition disorder Acute Pneumonia Acute Respiratory distress Acute Subarachnoid hemorrhage following injury Acute Subdural hemorrhage Acute Tachycardia Acute
[2016-10-10] MEDS: SCOPOLAMINE HYDROBROMIDE 1.5 MG PATCH TD SCH (13:06)
--- NOTE | 2016-10-10 14:44 | HOSPPROG ---
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 Exam: alert oriented relaxed skin warm dry color ok; no ulcers, rashes or other concerning lesions other than his chronic decubitus sore which is stable resps not labored at this time lungs very diminished BSs but no wheeze rales or rhonchi Tracheostomy in good condition heart regular abd soft nondistended nontender, bowel sounds present limbs warm, no edema iv site ok left forearm Blood cultures from October 08 negative so far Objective: Vital Signs Temp Pulse Resp BP Pulse Ox 36.6 C 60 18 107/63 95 10/10/16 11:24 10/10/16 11:24 10/10/16 11:24 10/10/16 11:24 10/10/16 11:24 Laboratory Results 10/08/16 04:02 10/08/16 04:02 10/09/16 10/10/16 10/11/16 06:59 06:59 06:59 Intake Total 2690 2025 Output Total 1625 1600 Balance 1065 425 PT 14.7 SEC (12.0-15.0) 09/28/16 05:55 INR 1.15 (0.83-1.16) 09/28/16 05:55 ICD10 Worksheet Patient Problems: Problems Problem Status Diagnosed Acute bronchitis Acute Hematemesis Acute Hypoxia Acute Tracheostomy complication Acute Vomiting Acute Constipation Acute Cough Acute DVT (deep venous thrombosis) Acute Decubitus skin ulcer Acute Fall from bed, initial encounter Acute Fever Acute Laceration of forehead Acute Nutrition disorder Acute Pneumonia Acute Respiratory distress Acute Subarachnoid hemorrhage following injury Acute Subdural hemorrhage Acute Tachycardia Acute
[2016-10-10] MEDS: ALPRAZolam 0.25 MG TAB TUBE SCH (21:47)
[2016-10-10] MEDS: MELATONIN 3 MG TAB TUBE SCH (21:47)
[2016-10-10] MEDS: ATORVASTATIN CALCIUM 40 MG TAB TUBE SCH (21:48)
[2016-10-10] MEDS: DOXAZOSIN MESYLATE 1 MG TAB TUBE SCH (21:48)
[2016-10-11] MEDS: IPRATROPIUM/ALBUTEROL 3 ML DEYVIAL IH SCH ×4 (05:23→20:46)
[2016-10-11] MEDS: SERTRALINE HCL 50 MG TAB TUBE SCH (08:20)
[2016-10-11] MEDS: SENNOSIDES 17.6 MG/10 ML UDL TUBE SCH (08:20)
[2016-10-11] MEDS: guaiFENesin 200 MG/10 ML UDCUP TUBE SCH ×2 (08:20→16:39)
[2016-10-11] MEDS: predniSONE 20 MG TAB TUBE SCH (08:21)
[2016-10-11] MEDS: FAMOTIDINE 20 MG TAB TUBE SCH (08:21)
[2016-10-11] MEDS: GLYCOPYRROLATE 1 MG TAB PO SCH ×2 (08:21→16:38)
[2016-10-11] MEDS: FUROSEMIDE 20 MG TAB PO SCH (08:21)
[2016-10-11] MEDS: ENOXAPARIN 40 MG/0.4 ML SYR SC SCH (08:21)
--- NOTE | 2016-10-11 11:35 | WOCRNPDOC ---
WOCRN Advanced Assessment Note - Skin Integrity Problem, Advanced Assess Bilateral Sacrum Pressure Injury Dressing Type: Allevyn Life (x 2, R and L) Dressing Description: Intact Exudate Amount: Scant Exudate Color: Reddish/Yellow Exudate Characteristic(s): Serosanguinous Integumentary Issue Intervention: Dressing Changed Irene Wound Tissue: Blanching, Erythema Irene Wound Swelling: None Wound Bed Color: Red Wound Bed Constitution: Smooth Tissue Wound Edges: Epithelizing Site Odor: None Pressure Injury Stage: Stage 2 Pressure Injury Present on Admit: Yes Skin Integrity Problem Comment: Site continues to show improvement. Area of partial-thickness tissue loss on R sacrum w/ thin, friable margins. Irene-wound skin presently blanching and intact. Wound on L side is almost fully- epithelialized , but remains fragile and non-blanching. Continue w/ protective dressings and off-loading. Patient remains on Sport bed (which was transferred with him from ICU), which is appropriate. Continue to off-load sacrum, turning [id number] q 2.
--- NOTE | 2016-10-11 19:09 | HOSPPROG ---
Hospitalist Progress Note Assessment/Plan: DIAGNOSIS: # RECURRENT FEVER 10/08, HAS BEEN AFEBRILE SINCE THEN WITHOUT ADDITIONAL THERAPY -so far no definite source identified, and no decompensation otherwise; ? 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 # PRERENAL AZOTEMIA # CHRONIC DEVICES IN PLACE INCLUDE TRACHEOSTOMY, PEG TUBE, MANCERA CATHETER PLANS: -antibiotic courses now complete for initial aspiration episode -follow cultures from 10/08 -Continue current pulmonary care, with intermittent suctioning as needed -Wound care nurse for his decubitus ulcer, as well as preventive measures including nutrition -DVT prophylaxis -PT OT ST PROBABLE TRANSFER TO INPATIENT REHAB UNIT September SUBJECTIVE: Today he has no acute symptoms No worsening dyspnea, no cough, no abdominal discomfort or nausea, moving bowels okay, no new pains or discomforts otherwise Chronic urinary catheter remains in place OBJECTIVE Vitals reviewed: no fever so far today, 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, 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 Exam: alert oriented relaxed skin warm dry color ok; no ulcers, rashes or other concerning lesions other than his chronic decubitus sore which is stable resps not labored at this time lungs very diminished BSs but no wheeze rales or rhonchi Tracheostomy in good condition heart regular abd soft nondistended nontender, bowel sounds present limbs warm, no edema iv site ok left forearm Blood cultures from October 08 negative so far Objective: Vital Signs Temp Pulse Resp BP Pulse Ox 36.6 C 88 18 110/72 95 10/11/16 11:05 10/11/16 16:12 10/11/16 16:12 10/11/16 17:00 10/11/16 11:05 Laboratory Results 10/08/16 04:02 10/08/16 04:02 10/10/16 10/11/16 10/12/16 06:59 06:59 06:59 Intake Total 2024 663 2200 Output Total 1600 1980 700 Balance 425 -1317 1500 PT 14.7 SEC (12.0-15.0) 09/28/16 05:55 INR 1.15 (0.83-1.16) 09/28/16 05:55 ICD10 Worksheet Patient Problems: Problems Problem Status Diagnosed Acute bronchitis Acute Hematemesis Acute Hypoxia Acute Tracheostomy complication Acute Vomiting Acute Constipation Acute Cough Acute DVT (deep venous thrombosis) Acute Decubitus skin ulcer Acute Fall from bed, initial encounter Acute Fever Acute Laceration of forehead Acute Nutrition disorder Acute Pneumonia Acute Respiratory distress Acute Subarachnoid hemorrhage following injury Acute Subdural hemorrhage Acute Tachycardia Acute
[2016-10-12] MEDS: SENNOSIDES 17.6 MG/10 ML UDL TUBE SCH ×3 (00:05→22:38)
[2016-10-12] MEDS: guaiFENesin 200 MG/10 ML UDCUP TUBE SCH ×4 (00:05→22:38)
[2016-10-12] MEDS: GLYCOPYRROLATE 1 MG TAB PO SCH ×4 (00:05→22:38)
[2016-10-12] MEDS: FAMOTIDINE 20 MG TAB TUBE SCH ×3 (00:06→22:39)
[2016-10-12] MEDS: ATORVASTATIN CALCIUM 40 MG TAB TUBE SCH ×2 (00:06→22:38)
[2016-10-12] MEDS: DOXAZOSIN MESYLATE 1 MG TAB TUBE SCH ×2 (00:06→22:38)
[2016-10-12] MEDS: ALPRAZolam 0.25 MG TAB TUBE SCH ×2 (00:06→22:38)
[2016-10-12] MEDS: MELATONIN 3 MG TAB TUBE SCH ×2 (00:06→22:39)
[2016-10-12] MEDS: POLYETHYLENE GLYCOL 3350 17 GM PKT TUBE PRN (00:10)
[2016-10-12] MEDS: IPRATROPIUM/ALBUTEROL 3 ML DEYVIAL IH SCH ×4 (04:12→21:40)
[2016-10-12] MEDS: ENOXAPARIN 40 MG/0.4 ML SYR SC SCH (08:30)
[2016-10-12] MEDS: FUROSEMIDE 20 MG TAB PO SCH (08:30)
[2016-10-12] MEDS: SERTRALINE HCL 50 MG TAB TUBE SCH (08:30)
[2016-10-12] MEDS: predniSONE 20 MG TAB TUBE SCH (08:30)
[2016-10-13 07:13] VITALS: BP 106/71; TEMP 97.7
--- NOTE | 2016-10-13 08:29 | PDIAF ---
- Diagnosis Diagnosis: aspiration Code Status: Full Code - Medication Management Discharge Medications: Medications to Continue on Transfer ALPRAZolam [Xanax 0.25 MG (*)] 0.25 mg TUBE DAILY20 09/27/16 [Last Taken ] Acetaminophen [Tylenol 650/20.3ML Oral Liq (*)] 650 mg TUBE Q4 PRN 09/27/16 [ Last Taken Unknown] Atorvastatin Calcium [Lipitor 40 mg (*)] 40 mg TUBE DAILY20 09/27/16 [Last Taken 09/26/16] Doxazosin Mesylate [Cardura 1 MG (*)] 1 mg TUBE DAILY20 09/27/16 [Last Taken 11/11] Herbals/Supplements -Info Only 1 ea TUBE DAILY 09/27/16 [Last Taken Unknown] Ipratropium/Albuterol [Duoneb (*)] 3 ml IH QID@08,12,16,20 PRN 09/27/16 [Last Taken 09/26/16 20:00] Melatonin [Melatonin 3 MG (*)] 3 mg TUBE DAILY20 09/27/16 [Last Taken 09/26/16] Mucinex Child Liquid 400 mg TUBE TID@08,,20 PRN 09/27/16 [Last Taken 09/26/16 20:00] Oxycodone HCl 5 mg TUBE Q4 PRN 09/27/16 [Last Taken 09/26/16 11:08] Polyethylene Glycol 3350 [Miralax 17 gm (*)] 17 gm TUBE DAILY PRN 09/27/16 [ Last Taken Unknown] Ranitidine HCl [Zantac] 150 mg TUBE BID@,20 09/27/16 [Last Taken 09/26/16 20: 00] Scopolamine Hydrobromide [Transderm-Scop] 1.5 mg TD Q72H 09/27/16 [Last Taken ] Senna Syrup 5 ml TUBE BID@08,20 PRN 09/27/16 [Last Taken 09/26/16 20:00] Sertraline HCl [Zoloft 20mg/ml oral liquid] 7.5 ml TUBE DAILY@08 09/27/16 [Last Taken 09/26/16] Tears/Dextran 70/Hypromellose [Natural Balance Tears (*)] 1 drop EACHEYE QID@08, 12,16,20 PRN 09/27/16 [Last Taken 09/26/16 20:00] Zofran Solution 4mg 4 mg TUBE Q8 PRN 09/27/16 [Last Taken 09/27/16 02:06] Glycopyrrolate [Robinul] 1 mg PO TID #0 tab 10/13/16 [Last Taken Unknown] Scopolamine Hydrobromide [Transderm-Scop] 1.5 mg TD Q72H #0 patch 10/13/16 [ Last Taken Unknown] predniSONE 20 mg TUBE DAILY #0 tablet 10/13/16 [Last Taken Unknown] Discharge Medications: Refer to the Discharge Home Medication list for PRN reason. - Orders Services needed: Physical Therapy, Occupational Therapy Tube feeding: Change to Jevity 1.5 with a goal of 65 ml/hr. Flush 150 cc q 4 - Follow Up Care Current Providers and Referrals: PENELOPE SELF [Primary Care Provider] - As per Instructions
[2016-10-13] MEDS: guaiFENesin 200 MG/10 ML UDCUP TUBE SCH (08:58)
[2016-10-13] MEDS: GLYCOPYRROLATE 1 MG TAB PO SCH (08:59)
[2016-10-13] MEDS: ENOXAPARIN 40 MG/0.4 ML SYR SC SCH (08:59)
[2016-10-13] MEDS: FAMOTIDINE 20 MG TAB TUBE SCH (08:59)
[2016-10-13] MEDS: SERTRALINE HCL 50 MG TAB TUBE SCH (08:59)
[2016-10-13] MEDS ORDERED: FUROSEMIDE 20 MG TAB TUBE SCH (09:00)
[2016-10-13] MEDS: predniSONE 20 MG TAB TUBE SCH (09:00)
[2016-10-13] MEDS: SENNOSIDES 17.6 MG/10 ML UDL TUBE SCH (09:00)
[2016-10-13] MEDS: IPRATROPIUM/ALBUTEROL 3 ML DEYVIAL IH SCH (09:41)
[2016-10-13 09:46] VITALS: PULSE 58; RESP 14; O2SAT 96
--- NOTE | 2016-10-13 17:52 | GDS ---
[f rep st] DISCHARGE SUMMARY DISCHARGE DIAGNOSES: 1. Acute hypoxic respiratory failure. 2. Aspiration pneumonitis. 3. History of prior hemorrhagic stroke with chronic hemiparesis. 4. Chronic tracheostomy, percutaneous endoscopic gastrostomy tube, and Alfaro. HISTORY: This is a 56-year-old male with a history of intracranial hemorrhage with residual flaccid hemiparesis, who presented with hypoxia, nausea, and vomiting. HOSPITAL COURSE: Patient was diagnosed with aspiration pneumonia initially. He was started on IV an tibiotics. Patient did have an esophagogram, which did not show any reflux. He completed his course of antibiotics. He was evaluated by Inpatient Rehab and it was felt that he would be a good candidat e for a rehab. He is being transferred over there currently. NEW MEDICATIONS ON DISCHARGE: Include a slow prednisone taper and glycopyrrolate for secretions. Greater than 30 minutes were spent in discharge. /[id number]/MODL
== END 2016-10-13 11:58 | DRG 177 ==
LOC: EDUNIT# → F3E 07:30 → F2N 09:58 → F2W 10-07 18:40
PROVIDERS: ADMIT Internal Medicine; ATTEND Internal Medicine
PROC: 0B958ZX Drainage of Right Middle Lobe Bronchus, Via Natural or Artificial Opening Endoscopic, Diagnostic (ICD-10-PCS; principal; 2016-10-03)
PROC: 0B9B8ZX Drainage of Left Lower Lobe Bronchus, Via Natural or Artificial Opening Endoscopic, Diagnostic (ICD-10-PCS; principal; 2016-10-03)
DX: J69.0 Pneumonitis due to inhalation of food and vomit (principal); J96.21 Acute and chronic respiratory failure with hypoxia; L89.152 Pressure ulcer of sacral region, stage 2; R50.9 Fever, unspecified; R13.10 Dysphagia, unspecified; Z93.0 Tracheostomy status; Z99.81 Dependence on supplemental oxygen; Z93.1 Gastrostomy status; N40.0 Benign prostatic hyperplasia without lower urinary tract symptoms; I10 Essential (primary) hypertension; Z87.891 Personal history of nicotine dependence; I69.351 Hemiplegia and hemiparesis following cerebral infarction affecting right dominant side
CPT/HCPCS: 92507-GN; 92523-GN; 97110-GP; 97112-GP; 97162-GP; 97167-GO; 97530-GO; 97530-GP; 97535-GO; J0456; J1335; J1650; J2250; J2354; J2405; J2543; J3010; J3370

== ENCOUNTER 2016-10-10 08:53 | Inpatient (IN) | payer MEDICAID ==
[2016-10-10] MEDS ORDERED: IPRATROPIUM/ALBUTEROL 3 ML DEYVIAL ONE (15:00)
[2016-10-13] MEDS ORDERED: [UNRECOGNIZED DRUG - OTHER] TUBE PRN (14:31)
[2016-10-13] MEDS ORDERED: ONDANSETRON DISINTEGRATING 4 MG TAB TUBE PRN (14:49)
[2016-10-13] MEDS: SCOPOLAMINE HYDROBROMIDE 1.5 MG PATCH TD SCH (16:23)
--- NOTE | 2016-10-13 16:47 | GHP ---
[f rep st] HISTORY AND PHYSICAL POST ADMISSION PHYSICIAN EVALUATION AND REHABILITATION TREATMENT PLAN DATE OF ADMISSION: 10/13/2016 DATE OF EVALUATION: 10/13/2016 TIME OF EVALUATION: 1430 REFERRING FACILITY: [facility] REFERRING PHYSICIAN: Dr. Marie CONSULTING PHYSICIANS: He was seen by the hospitalist service, as well as intensive care. REHABILITATION DIAGNOSIS: Debility status post aspiration event and hospitalization. IMPAIRMENT GROUP: 16. ETIOLOGIC DIAGNOSIS: Debility (noncardiac, nonpulmonary). DATE OF ONSET: 09/27/2016 HISTORY OF PRESENT ILLNESS: Mr. Mendez is a 56-year-old man with history of multiple strokes, including a cerebellar stroke and an intracranial hemorrhage, a history of craniotomy and RETAIL TEAM MEMBER shunt placement, and a possible history of anoxic brain injury, who was a resident of [facility]. He has a tracheostomy, a PEG tube for feeding, and a urinary catheter. He came to the emergency room on 09/27/2016 having had multiple episodes of vomiting at the care home and then a decrease in his oxygen saturation. He was diagnosed with aspiration pneumonitis. He was initially treated with vancomycin; however , it was discontinued after several days as he did not appear to have developed pneumonia. Sputum culture eventually grew Corynebacterium which was considered part of normal respiratory sheree, as well as a Staphylococcus aureus and Proteus vulgaris. He was treated with prednisone and pulmonary toilet with some improvement in his oxygenation. His oxygen need had been up to 10 L, and on the day prior to discharge and on the day of discharge, he was maintaining on 8 L. He had fevers, which resolved after 10/08/2016. There was no definite source identified. Nausea and vomiting resolved. Blood cultures taken on 10/08 have shown no growth. PAST MEDICAL HISTORY: 1. Intracranial hemorrhage with residual hemiparesis, chronic respiratory failure, and chronic dysphagia requiring trach, PEG, and chronic Alfaro catheter. 2. Hypertension. 3. Benign prostatic hypertrophy. 4. Sacral decubitus ulcer. 5. Urinary tract infection with urosepsis. 6. GI bleed. 7. He has had 10 emergency department visits or hospitalizations since 2015. SURGICAL HISTORY: He has had a RETAIL TEAM MEMBER shunt placement and he has had a craniotomy with replacement of a bone flap. PREHOSPITAL MEDICATIONS: 1. Acetaminophen 20 mL per tube q.4 hours p.r.n. 2. Alprazolam 0.25 mg per tube q.h.s. 3. Atorvastatin 40 mg per tube daily. 4. Artificial Tears q.i.d. 5. Doxazosin 1 mg per tube daily. 6. Guaifenesin 400 mg per tube t.i.d. 7. Heparin 5000 units subcu b.i.d. 8. Lactulose 20 g per tube t.i.d. 9. Melatonin 3 mg per tube q.h.s. 10. Polyethylene glycol 17 g per tube daily. 11. Ranitidine 150 mg per tube b.i.d. 12. Scopolamine transdermal 1.5 mg, change patch q.72 hours. 13. Senna syrup 5 mL per tube b.i.d. 14. Sertraline 20 mg/mL 7.5 mL per tube daily. 15. Zofran 4 mg per tube q.8 hours p.r.n. 16. Oxycodone 5 mg per tube q.4 hours p.r.n. ADMISSION MEDICATIONS: 1. Acetaminophen 650 mg per tube q.4 hours p.r.n. 2. Albuterol/ipratropium nebulizer 3 mL q.i.d. at 08, 12, 16, and 20. 3. Alprazolam 0.25 mg per tube q.h.s. 4. Artificial Tears q.i.d. p.r.n. 5. Atorvastatin 40 mg per tube daily at 1999. 6. Doxazosin 1 mg per tube daily at 1999. 7. Enoxaparin 40 mg subcutaneous daily. 8. Famotidine 20 mg per tube b.i.d. 9. Glycopyrrolate 1 mg per tube t.i.d. 10. Melatonin 3 mg per tube q.h.s. 11. Guaifenesin 400 mg per tube t.i.d. 12. Ondansetron 4 mg per tube q.8h hours p.r.n. nausea, vomiting. 13. Oxycodone 5 mg per tube q.4 hours p.r.n. pain. 14. Polyethylene glycol 17 g per tube daily p.r.n. 15. Prednisone 20 mg per tube daily. 16. Scopolamine transdermal 1.5 mg, change q.72 hours. 17. Senna oral liquid 5 mg per tube b.i.d. ALLERGIES: There are no known drug allergies. PRECAUTIONS: He is a fall risk. He is an aspiration risk. ACTIVE COMORBIDITIES: He has the tier 1 comorbidities of tracheostomy, tier 2 comorbidity of dysphagia, tier 3 comorbidity of hemiparesis. FAMILY HISTORY: Noncontributory. PSYCHOSOCIAL HISTORY: He is . His lives in [place]. He has been a resident of [facility], I am not sure how long. Per record review, it appears that his cerebrovascular events were a year ago or more. REVIEW OF SYSTEMS: Limited by difficult communication. He denies pain. He denies dyspnea. He denies dysuria or bladder pain. He reports his bowels are moving and otherwise, in so far as can be ascertained, a 10-point review of systems is negative. PHYSICAL EXAM: VITAL SIGNS: Not yet available in the chart. However, this morning at the [facility] blood pressure was 106/71, heart was rate was 58, respiratory rate was 14, oxygen saturation was 96% on 8 L via a humidified trach collar. His temperature was 36.5 degrees centigrade. His weight is recorded as 110 kg with a body mass index of 39.1, but he does not appear to be extremely obese. GENERAL: This is a well-nourished, well- developed man, alert, cooperative, and in no acute distress. HEENT: Extraocular movements are intact. He appears to have difficulty closing his left eye. Pupils are equal, round and reactive to light. Mucous membranes are moist. Dentition is in good condition. NECK: Supple. Tracheostomy is in place and mask blowing humidified oxygen. HEART: There is a regular rate and rhythm with no murmurs, rubs, or gallops. LUNGS: Clear to auscultation bilaterally. ABDOMEN: Soft, nontender, nondistended with normoactive bowel sounds, and no hepatosplenomegaly. EXTREMITIES: There is no cyanosis, clubbing , or edema. Radial and dorsalis pedis pulses are 2+ bilaterally. NEUROLOGIC: He is alert. Orientation could not be determined. Other than the inability to close his left eye and dysphagia, cranial nerves are otherwise grossly intact. He is able to move both upper extremities, more so the left than the right. The right is used primarily to brace the communication board and he is able to point to letters with the left hand. He has minimal movement of lower extremities. He has some core strength and is able to arise from supine to seated with minimal to moderate assistance of 1. Sensation appears to be intact to light touch. SKIN: Warm and dry. There are 2 areas of decubitus ulcers versus dermatitis bilaterally on his sacrum. These appear to be approximately stage II and each are approximately 2 cm in size with some eschar. CURRENT LEVEL OF FUNCTION: Per the preadmission screen: For diet, feeding, and swallowing he is n.p.o. and his feeding is by gastrostomy tube. Regarding grooming, he needs setup to minimal assistance with voice cueing. Regarding dressing, he required total assist. Toileting was done with total assist. Bed mobility required moderate assistance of 2. Transfers required max assistance of 2 with voice cues for a squat pivot onto a chair. Kiera lift was also used for transfers. Balance was noted to require minimal to moderate assistance of 2. While sitting, he would lean to the right. Gait was not tested. He was noted to have bilateral upper extremity ataxia, as well as truncal ataxia. IMPRESSION: Mr. Phoenix Mendez is a 56-year-old man, who has suffered remote cerebrovascular accidents including a cerebellar stroke and an intracranial hemorrhage with surgical evacuation and RETAIL TEAM MEMBER shunt placement. He has had multiple hospitalizations and emergency department visits from his care home since May, including a hospitalization for urosepsis from to 09/22/2016, a subdural hematoma from a fall on 08/03/2016, and a gastrointestinal bleed from 06/13/2016 to 06/17/2016, and respiratory issues otherwise. He came back to the hospital on 09/27/2016 with hypoxia, having had vomiting and aspiration. He was treated briefly with antibiotics, but primarily was considered to have a pneumonitis. Over time and with the use of prednisone, he returned to baseline regarding his respiratory status. He is appropriate for inpatient rehabilitation. He potentially can make progress in the areas of bed mobility and transfers. He may be able to improve his ability to communicate and advance to an iPad based communication device rather than an alphabet board so he will benefit from physical, occupational, and speech therapies at inpatient rehabilitation. He needs rehabilitation nursing care regarding pulmonary toilet, tracheostomy care, bowel and bladder, risk for falls, and decubitus ulcer, and he will benefit from rehabilitation physician care regarding respiratory medications, and bowel and bladder management. His goal is to be able to talk and be free of a communication board to make his needs known, and to be able to assist in his care and reduce the burden of care , and improve the quality of his life. For a safe discharge, it is anticipated he will achieve the ability to groom himself with setup, to vocalize his needs with a Passy Jeanna valve, to initiate rolling side to side to offload in preparation for transfers. He will have therapy with Physical Therapy, Occupational Therapy, and Speech Therapy on a modified schedule for 30-60 minutes for each discipline per day on 7 days a week to total 15 hours a week or more. His expected duration of stay is 10-14 days. It is expected that he will discharge back to a correction facility, where he will have intensive nursing, as well as nurse's aide care and can continue therapies. ASSESSMENT AND PLAN: 1. Debility, status post hospitalization for aspiration pneumonitis. He appears to be back to his respiratory baseline. He will require tracheostomy care and pulmonary toilet to be provided by rehabilitation nurses. It will be determined on followup with Pulmonology the duration of prednisone treatment and the optimal taper. 2. Debility as a late sequela of a cerebrovascular accident and intracranial hemorrhage. To be assessed by Physical and Occupational Therapy to improve mobility and activities of daily living towards return to a correction facility at a lower level of burden of care. 3. Dysphagia and inability to speak. Speech Therapy will address his communication issues with a goal of optimizing his ability to make his needs known. 4. Dysphagia with G-tube feeding. To be managed by rehabilitation nursing. 5. History of pulmonary embolus. He will continue on enoxaparin at a preventive dose. It is unclear to what extent he remains at risk as I do not have history regarding how long he has been hemiparetic and the circumstances under which the pulmonary embolus happened in the past. 6. History of gastrointestinal bleed. Will continue famotidine. 7. Dyslipidemia. Will continue atorvastatin. 8. Constipation. Will continue his laxatives as ordered out of the hospital. 9. History of nausea and vomiting leading to his aspiration pneumonitis. Will continue ondansetron on a p.r.n. basis. /[id number]/MODL MTDD
[2016-10-13] MEDS: GLYCOPYRROLATE 1 MG TAB TUBE SCH ×2 (17:23→22:43)
[2016-10-13] MEDS ORDERED: ALPRAZolam 0.25 MG TAB TUBE SCH (20:00)
[2016-10-13] MEDS: DOXAZOSIN MESYLATE 1 MG TAB TUBE SCH (20:43)
[2016-10-13] MEDS: MELATONIN 3 MG TAB TUBE SCH (20:43)
[2016-10-13] MEDS: FAMOTIDINE 20 MG TAB TUBE SCH (20:43)
[2016-10-13] MEDS: ALPRAZolam 0.5 MG TAB TUBE SCH (20:43)
[2016-10-13] MEDS: ATORVASTATIN CALCIUM 40 MG TAB TUBE SCH (20:43)
[2016-10-13] MEDS: ACETAMINOPHEN 650 MG/20.3 ML UDCUP TUBE PRN (20:55)
[2016-10-13] MEDS: SENNOSIDES 17.6 MG/10 ML UDL TUBE PRN (22:42)
[2016-10-14] MEDS: FAMOTIDINE 20 MG TAB TUBE SCH ×2 (08:56→20:36)
[2016-10-14] MEDS: ENOXAPARIN 40 MG/0.4 ML SYR SC SCH (08:56)
[2016-10-14] MEDS: GLYCOPYRROLATE 1 MG TAB TUBE SCH ×3 (08:56→23:01)
[2016-10-14] MEDS: predniSONE 20 MG TAB TUBE SCH (08:56)
[2016-10-14] MEDS ORDERED: Herbals/Supplements -Info Only PO SCH (09:00)
--- NOTE | 2016-10-14 09:05 | PDOREHIP ---
Admission [facility] - Admission - 3 Day Assessment Period Admission Date/Day 1: 10/13/16 Day 2: 10/14/16 Day 3: 10/15/16 - Active Diagnoses Comorbidities and Co-existing Conditions at Admission: 44521. None of the Above - Skin Conditions Unhealed Pressure Ulcer (1 or more/Stage 1 or >)-Admission: 1. Yes # Stage 2 Pressure Ulcers-Admission: 2 (sacrum)
--- NOTE | 2016-10-14 09:07 | SOAPPROG ---
SOAP Progress Note Assessment/Plan: Assessment: 56 yo M with history of CVA with hemorrhagic transformation in 2015, aphasia, dysphagia, R hemiparesis, tracheostomy, PEG tube and rader catheter, hospitalized 09/26/16 with aspiration pneumonitis: * Status post hospitalization for aspiration pneumonitis. He appears to be back to his respiratory baseline. He will require tracheostomy care and pulmonary toilet to be provided by rehabilitation nurses. 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 To be assessed by Physical and Occupational Therapy to improve mobility and activities of daily living towards return to a [facility] facility at a lower level of burden of care. * Dysphagia and inability to speak. Speech Therapy will address his communication issues with a goal of optimizing his ability to make his needs known. * Dysphagia with G-tube feeding. To be managed by rehabilitation nursing. * Mild erythema R eye: to use artificial tears.Observe for resolution. * History of pulmonary embolus. He will continue on enoxaparin at a preventive dose. It is unclear to what extent he remains at risk as I do not have history regarding how long he has been hemiparetic and the circumstances under which the pulmonary embolus happened in the past. * History of gastrointestinal bleed. Will continue famotidine. * Dyslipidemia. Will continue atorvastatin. * Constipation. Will continue his laxatives as ordered out of the hospital. * History of nausea and vomiting leading to his aspiration pneumonitis. Will continue ondansetron on a p.r.n. basis. 10/14/16 12:50 Subjective: Nurse notes redness to right eye. He endorses some irritation; o/w w/out complaint. Objective: Vital Signs Temp Pulse Resp BP Pulse Ox 36.8 C 68 12 117/76 92 10/14/16 08:49 10/14/16 08:49 10/14/16 08:49 10/14/16 08:49 10/14/16 08:49 10/13/16 10/14/16 10/15/16 05:59 05:59 05:59 Intake Total 235 Output Total 1050 Balance -815 Physical Exam - Physical Exam General Appearance: WD/WN, alert, no apparent distress EENT: other (Mild erythema to R sclera. No drainage/purulence) Respiratory: normal breath sounds, No crackles, No rhonchi, No wheezing Cardiac/Chest: regular rate, rhythm, No edema Skin: normal color, warm/dry Neuro/Psych: alert, normal mood/affect, motor weakness ICD10 Worksheet Patient Problems: Problems Problem Status Diagnosed Acute bronchitis Acute Hematemesis Acute Constipation Acute Cough Acute DVT (deep venous thrombosis) Acute Decubitus skin ulcer Acute Fall from bed, initial encounter Acute Fever Acute Hypoxia Acute Laceration of forehead Acute Nutrition disorder Acute Pneumonia Acute Respiratory distress Acute Subarachnoid hemorrhage following injury Acute Subdural hemorrhage Acute Tachycardia Acute Tracheostomy complication Acute Vomiting Acute
[2016-10-14] MEDS: IPRATROPIUM/ALBUTEROL 3 ML DEYVIAL IH PRN ×2 (10:48→19:06)
[2016-10-14] MEDS ORDERED: BISACODYL 10 MG SUPP PR PRN (12:53)
[2016-10-14] MEDS: POLYETHYLENE GLYCOL 3350 17 GM PKT TUBE PRN (13:15)
[2016-10-14] MEDS: TEARS/DEXTRAN 70/HYPROMELLOSE 15 ML OPHT.BTL EACHEYE PRN ×2 (13:39→17:38)
--- NOTE | 2016-10-14 16:06 | WOCRNPDOC ---
WOCRN Advanced Assessment Note - Skin Integrity Problem, Advanced Assess Bilateral Buttock Dressing Type: Allevyn Life Dressing Description: Intact Exudate Amount: Scant Exudate Color: Reddish/Yellow Exudate Characteristic(s): Serosanguinous Integumentary Issue Intervention: Visualized Under Dressing Irene Wound Tissue: Blanching, Erythema, Raw, Denuded Irene Wound Swelling: Mild Wound Bed Color: Red Wound Bed Constitution: Smooth Tissue Site Odor: None Pressure Injury Stage: Stage 2 Skin Integrity Problem Comment: Partial-thickness tissue loss remains evident on both R and L wounds, w/ friable tissue throughout. Appearance is consistent w / a mixture of moisture-associated dermatitis and pressure injury. While margins of both wounds are beginning to yves, medially wounds remain open, shallow. Irene-wound tissue is raw and denuded. My concern is that existing Allevyn dressings are trapping too much moisture. Will switch to Calazime to see if site improves. Continue off-loading sacrum, [id number].
[2016-10-14] MEDS: ALPRAZolam 0.5 MG TAB TUBE SCH (20:35)
[2016-10-14] MEDS: ATORVASTATIN CALCIUM 40 MG TAB TUBE SCH (20:36)
[2016-10-14] MEDS: MELATONIN 3 MG TAB TUBE SCH (20:36)
[2016-10-14] MEDS: DOXAZOSIN MESYLATE 1 MG TAB TUBE SCH (20:36)
[2016-10-15] MEDS: ENOXAPARIN 40 MG/0.4 ML SYR SC SCH (08:11)
[2016-10-15] MEDS: GLYCOPYRROLATE 1 MG TAB TUBE SCH ×3 (09:26→20:53)
[2016-10-15] MEDS: predniSONE 20 MG TAB TUBE SCH (09:26)
[2016-10-15] MEDS: FAMOTIDINE 20 MG TAB TUBE SCH ×2 (09:26→20:07)
--- NOTE | 2016-10-15 10:01 | SOAPPROG ---
SOAP Progress Note Assessment/Plan: Assessment: 56 yo M with history of CVA with hemorrhagic transformation in 2015, aphasia, dysphagia, R hemiparesis, tracheostomy, PEG tube and rader catheter, hospitalized 09/26/16 with aspiration pneumonitis: * Status post hospitalization for aspiration pneumonitis. He appears to be back to his respiratory baseline. He will require tracheostomy care and pulmonary toilet to be provided by rehabilitation nurses. * Sacral decub- may benefit from placement on airbed * Debility as a late sequela of a cerebrovascular accident and intracranial hemorrhage. To be assessed by Physical and Occupational Therapy to improve mobility and activities of daily living towards return to a residential facility at a lower level of burden of care. * Dysphagia and inability to speak. Speech Therapy will address his communication issues with a goal of optimizing his ability to make his needs known. * Dysphagia with G-tube feeding. To be managed by rehabilitation nursing. * Mild erythema R eye: to use artificial tears.Observe for resolution. * History of pulmonary embolus. He will continue on enoxaparin at a preventive dose. It is unclear to what extent he remains at risk as I do not have history regarding how long he has been hemiparetic and the circumstances under which the pulmonary embolus happened in the past. * History of gastrointestinal bleed. Will continue famotidine. * Dyslipidemia. Will continue atorvastatin. * Constipation. Will continue his laxatives as ordered out of the hospital. * History of nausea and vomiting leading to his aspiration pneumonitis. Will continue ondansetron on a p.r.n. basis. Plan: 10/15/16 10:12 Subjective: C/O soreness from sacral decubs using finger board. Objective: Vital Signs Temp Pulse Resp BP Pulse Ox 36.3 C 55 L 16 106/64 93 10/15/16 06:30 10/15/16 06:30 10/15/16 06:30 10/15/16 06:30 10/15/16 06:30 10/14/16 10/15/16 10/16/16 05:59 05:59 05:59 Intake Total 335 4015 Output Total 1050 1075 Balance -715 2940 Physical Exam - Physical Exam General Appearance: WD/WN, alert, no apparent distress Neck: supple Respiratory: lungs clear, No wheezing Cardiac/Chest: No edema, No JVD Abdomen: normal bowel sounds (G-tube in place) Skin: decubitus (sacral; erythematous, ) Neuro/Psych: motor weakness, speech abnormalities (aphasic. ) ICD10 Worksheet Patient Problems: Problems Problem Status Diagnosed Acute bronchitis Acute Hematemesis Acute Constipation Acute Cough Acute DVT (deep venous thrombosis) Acute Decubitus skin ulcer Acute Fall from bed, initial encounter Acute Fever Acute Hypoxia Acute Laceration of forehead Acute Nutrition disorder Acute Pneumonia Acute Respiratory distress Acute Subarachnoid hemorrhage following injury Acute Subdural hemorrhage Acute Tachycardia Acute Tracheostomy complication Acute Vomiting Acute
[2016-10-15] MEDS: ACETAMINOPHEN 650 MG/20.3 ML UDCUP TUBE PRN (20:07)
[2016-10-15] MEDS: ATORVASTATIN CALCIUM 40 MG TAB TUBE SCH (20:07)
[2016-10-15] MEDS: DOXAZOSIN MESYLATE 1 MG TAB TUBE SCH (20:07)
[2016-10-15] MEDS: MELATONIN 3 MG TAB TUBE SCH (20:07)
[2016-10-15] MEDS: ALPRAZolam 0.5 MG TAB TUBE SCH (20:15)
[2016-10-15] MEDS: oxyCODONE IR 5 MG TAB TUBE PRN (20:59)
[2016-10-16] MEDS: IPRATROPIUM/ALBUTEROL 3 ML DEYVIAL IH PRN ×2 (05:45→21:04)
[2016-10-16] MEDS: TEARS/DEXTRAN 70/HYPROMELLOSE 15 ML OPHT.BTL EACHEYE PRN (05:45)
[2016-10-16] MEDS: oxyCODONE IR 5 MG TAB TUBE PRN ×2 (05:46→20:05)
[2016-10-16] MEDS: ENOXAPARIN 40 MG/0.4 ML SYR SC SCH (10:39)
[2016-10-16] MEDS: FAMOTIDINE 20 MG TAB TUBE SCH ×2 (10:39→20:05)
[2016-10-16] MEDS: GLYCOPYRROLATE 1 MG TAB TUBE SCH ×3 (10:39→21:03)
[2016-10-16] MEDS: predniSONE 20 MG TAB TUBE SCH (10:39)
--- NOTE | 2016-10-16 12:21 | SOAPPROG ---
SOAP Progress Note Assessment/Plan: Assessment: 56 yo M with history of CVA with hemorrhagic transformation in 2015, aphasia, dysphagia, R hemiparesis, tracheostomy, PEG tube and rader catheter, hospitalized 09/26/16 with aspiration pneumonitis: * Status post hospitalization for aspiration pneumonitis. He appears to be back to his respiratory baseline. He will require tracheostomy care and pulmonary toilet to be provided by rehabilitation nurses. * Sacral decub- may benefit from placement on airbed * Debility as a late sequela of a cerebrovascular accident and intracranial hemorrhage. To be assessed by Physical and Occupational Therapy to improve mobility and activities of daily living towards return to a nursing home facility at a lower level of burden of care. * Dysphagia and inability to speak. Discussed case with speech therapist who would like Pulmonary input as to how much trach cuff can be deflated so that speaking valve can be placed for speech training. Would also like to see ST begin trial of E-Stim to pharyngeal muscles and bedside swallowing eval for possible PO intake. Speech Therapy will address his communication issues with a goal of optimizing his ability to make his needs known. * Pulmonary rehab- Physical therapy to work with patient for incentive spirometer use, diaphragm and accessory respiratory muscle strengthening. * Dysphagia with G-tube feeding. To be managed by rehabilitation nursing. * Mild erythema R eye: to use artificial tears.Observe for resolution. * History of pulmonary embolus. He will continue on enoxaparin at a preventive dose. It is unclear to what extent he remains at risk as I do not have history regarding how long he has been hemiparetic and the circumstances under which the pulmonary embolus happened in the past. * History of gastrointestinal bleed. Will continue famotidine. * Dyslipidemia. Will continue atorvastatin. * Constipation. Will continue his laxatives as ordered out of the hospital. * History of nausea and vomiting leading to his aspiration pneumonitis. Will continue ondansetron on a p.r.n. basis. Plan: 10/15/16 10:12 10/16/16 12:15 Subjective: No new problems per staff and no new c/o by patient. Objective: Vital Signs Temp Pulse Resp BP Pulse Ox 36.4 C 58 L 18 110/72 96 10/16/16 06:18 10/16/16 06:18 10/16/16 06:18 10/16/16 06:18 10/16/16 06:18 10/15/16 10/16/16 10/17/16 05:59 05:59 05:59 Intake Total 4010 1816 Output Total 8821 1056 550 Balance 2940 766 -550 Physical Exam - Physical Exam General Appearance: WD/WN, alert, no apparent distress Respiratory: No normal breath sounds (decreased breaths sounds. Trach cuff deflated and plugged) Cardiac/Chest: No edema, No JVD Abdomen: normal bowel sounds, non-tender, soft, No rebound, No ascites Skin: decubitus (redness lumbosacral region), No normal color, No warm/dry Neuro/Psych: abnormal gait, aphasia, motor weakness, speech abnormalities ICD10 Worksheet Patient Problems: Problems Problem Status Diagnosed Acute bronchitis Acute Hematemesis Acute Constipation Acute Cough Acute DVT (deep venous thrombosis) Acute Decubitus skin ulcer Acute Fall from bed, initial encounter Acute Fever Acute Hypoxia Acute Laceration of forehead Acute Nutrition disorder Acute Pneumonia Acute Respiratory distress Acute Subarachnoid hemorrhage following injury Acute Subdural hemorrhage Acute Tachycardia Acute Tracheostomy complication Acute Vomiting Acute
[2016-10-16] MEDS: SCOPOLAMINE HYDROBROMIDE 1.5 MG PATCH TD SCH (15:44)
[2016-10-16] MEDS: MELATONIN 3 MG TAB TUBE SCH (20:05)
[2016-10-16] MEDS: ALPRAZolam 0.5 MG TAB TUBE SCH (20:05)
[2016-10-16] MEDS: DOXAZOSIN MESYLATE 1 MG TAB TUBE SCH (20:05)
[2016-10-16] MEDS: ATORVASTATIN CALCIUM 40 MG TAB TUBE SCH (20:05)
--- NOTE | 2016-10-17 09:43 | SOAPPROG ---
SOAP Progress Note Assessment/Plan: Assessment: 56 yo M with history of CVA with hemorrhagic transformation in 2015, aphasia, dysphagia, R hemiparesis, tracheostomy, PEG tube and rader catheter, hospitalized 09/26/16 with aspiration pneumonitis: * Status post hospitalization for aspiration pneumonitis. He appears to be back to his respiratory baseline. He will require tracheostomy care and pulmonary toilet to be provided by rehabilitation nurses. Trial of Mucomyst for secretions. 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 Initial FIM 37 on 10/17/16. Safe transfers by Kiera. Max assist of 2 for bed mobility. BUE ataxia; has control of gross movements with LUE. Continue Physical and Occupational Therapy to improve mobility and activities of daily living towards return to a [facility] facility at a lower level of burden of care. * Dysarthria and inability to speak. Questions re Passey-Jeanna valve use, deflation/inflation of cuff and appropriate volumes, when and for how long to use valve, whether valve may become clogged with secretions. Stitching Machine Setter Dr. Marie to visit on Inpatient Rehabilitation; may clear up these issues. Consult with LITERACY CONSULTANT specializing in alternative communication devices pending on 10/19/16. * Respiratory secretions. Increased per nursing. Trial of n-acetylcysteine nebulizer starting 10/17/16. Prednisone Rx d/w stockroom supervisor Dr. Marie 10/17/16: suggests taper by 5 mg Q 3 days. Will visit on unit. * Dysphagia with G-tube feeding. To be managed by rehabilitation nursing and field operations manager. * Mild erythema R eye: to use artificial tears Resolved. * Blurred cision. retail assistant manager to arrange ophthalmology visit if possible. * History of pulmonary embolus. He will continue on enoxaparin at a preventive dose. It is unclear to what extent he remains at risk as I do not have history regarding how long he has been hemiparetic and the circumstances under which the pulmonary embolus happened in the past. * History of gastrointestinal bleed. Will continue famotidine. * Dyslipidemia. Will continue atorvastatin. * Constipation. Will continue his laxatives as ordered out of the hospital. * History of nausea and vomiting leading to his aspiration pneumonitis. Will continue ondansetron on a p.r.n. basis. Attended staffing, 15 min. D/W case mgmt, nursing, PT, OT, LITERACY CONSULTANT. Continue therapies to improve communication and reduce burden of care. Plan for discharge 10/27/16. 10/17/16 12:09 Subjective: No complaints. Breathing OK. Not in pain. Slept well. Nurse reports copious gonzales mucous suctioned on 0800 today. Objective: Vital Signs Temp Pulse Resp BP Pulse Ox 37.0 C 51 L 18 94/52 L 95 10/16/16 20:00 10/17/16 05:31 10/17/16 05:31 10/17/16 05:31 10/17/16 05:31 10/16/16 10/17/16 10/18/16 05:59 05:59 05:59 Intake Total 1816 2262 Output Total 1050 1350 Balance 766 912 - Time Spent With Patient Time Spent With Patient: Greater than 35 minutes floor time today, including more than 50% of time in coordination of care during staffing meeting, and discussing with stockroom supervisor Dr. Marie. Physical Exam - Physical Exam General Appearance: WD/WN, alert, no apparent distress Respiratory: rhonchi (prominent upper respiratory rhonchi with deep inspiration/ expiration.), No respiratory distress, No accessory muscle use, No crackles, No wheezing Skin: normal color, warm/dry Neuro/Psych: alert, normal mood/affect ICD10 Worksheet Patient Problems: Problems Problem Status Diagnosed Acute bronchitis Acute Hematemesis Acute Constipation Acute Cough Acute DVT (deep venous thrombosis) Acute Decubitus skin ulcer Acute Fall from bed, initial encounter Acute Fever Acute Hypoxia Acute Laceration of forehead Acute Nutrition disorder Acute Pneumonia Acute Respiratory distress Acute Subarachnoid hemorrhage following injury Acute Subdural hemorrhage Acute Tachycardia Acute Tracheostomy complication Acute Vomiting Acute
[2016-10-17] MEDS: IPRATROPIUM/ALBUTEROL 3 ML DEYVIAL IH PRN (09:45)
[2016-10-17] MEDS: FAMOTIDINE 20 MG TAB TUBE SCH ×2 (09:45→20:19)
[2016-10-17] MEDS: ENOXAPARIN 40 MG/0.4 ML SYR SC SCH (09:45)
[2016-10-17] MEDS: POLYETHYLENE GLYCOL 3350 17 GM PKT TUBE PRN (09:45)
[2016-10-17] MEDS: GLYCOPYRROLATE 1 MG TAB TUBE SCH ×3 (09:45→22:32)
[2016-10-17] MEDS: predniSONE 20 MG TAB TUBE SCH (09:45)
[2016-10-17] MEDS ORDERED: predniSONE 20 MG TAB TUBE SCH (12:12)
[2016-10-17] MEDS: TEARS/DEXTRAN 70/HYPROMELLOSE 15 ML OPHT.BTL EACHEYE PRN (13:57)
--- NOTE | 2016-10-17 15:25 | WOCRNPDOC ---
WOCRN Advanced Assessment Note - Skin Integrity Problem, Advanced Assess Bilateral Buttock Dressing Type: Open to Air Exudate Amount: None Irene Wound Tissue: Blanching, Erythema Site Measurement - Head-to-Toe Length X Width X Depth (cm): 7x7x0 on each side of the buttock. Skin Integrity Problem Comment: No open wounds. Dry flaking skin over erythemtic areas. Will update orders. Wound care will round in approximately one week. Coccyx Pressure Injury Dressing Type: Open to Air Site Measurement - Head-to-Toe Length X Width X Depth (cm): 1.5x1x0 Pressure Injury Stage: Stage 1 Pressure Injury Present on Admit: No
[2016-10-17] MEDS: ACETYLCYSTEINE 10% 30 ML VIAL IH SCH (18:50)
[2016-10-17] MEDS: ATORVASTATIN CALCIUM 40 MG TAB TUBE SCH (20:19)
[2016-10-17] MEDS: DOXAZOSIN MESYLATE 1 MG TAB TUBE SCH (20:19)
[2016-10-17] MEDS: MELATONIN 3 MG TAB TUBE SCH (20:19)
[2016-10-17] MEDS: ALPRAZolam 0.5 MG TAB TUBE SCH (20:39)
[2016-10-17] MEDS: SENNOSIDES 17.6 MG/10 ML UDL TUBE PRN (20:44)
[2016-10-18] MEDS: ACETYLCYSTEINE 10% 30 ML VIAL IH SCH ×4 (01:24→17:20)
[2016-10-18] MEDS: oxyCODONE IR 5 MG TAB TUBE PRN ×2 (06:35→12:26)
[2016-10-18] MEDS: ACETAMINOPHEN 650 MG/20.3 ML UDCUP TUBE PRN ×2 (09:14→22:39)
[2016-10-18] MEDS: ENOXAPARIN 40 MG/0.4 ML SYR SC SCH (09:14)
[2016-10-18] MEDS: FAMOTIDINE 20 MG TAB TUBE SCH ×2 (09:14→20:44)
[2016-10-18] MEDS: GLYCOPYRROLATE 1 MG TAB TUBE SCH ×3 (09:15→22:49)
[2016-10-18] MEDS: SENNOSIDES 17.6 MG/10 ML UDL TUBE PRN (09:15)
[2016-10-18] MEDS: predniSONE 10 MG TAB TUBE SCH (09:15)
[2016-10-18] MEDS: POLYETHYLENE GLYCOL 3350 17 GM PKT TUBE PRN (09:15)
--- NOTE | 2016-10-18 14:40 | SOAPPROG ---
SOAP Progress Note Assessment/Plan: Assessment: 56 yo M with history of CVA with hemorrhagic transformation in 2015, aphasia, dysphagia, R hemiparesis, tracheostomy, PEG tube and rader catheter, hospitalized 09/26/16 with aspiration pneumonitis: * Status post hospitalization for aspiration pneumonitis. He appears to be back to his respiratory baseline. He will require tracheostomy care and pulmonary toilet to be provided by rehabilitation nurses. Mucomyst for secretions. 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 Initial FIM 37 on 10/17/16. Safe transfers by Kiera. Max assist of 2 for bed mobility. BUE ataxia; has control of gross movements with LUE. Continue Physical and Occupational Therapy to improve mobility and activities of daily living towards return to a [facility] facility at a lower level of burden of care. * Dysarthria and inability to speak. Using Passey-Lock[place] valve with [employer]; RT instructed nurse on manometry to fill trach cuff appropriately. Consult with [employer] specializing in alternative communication devices pending on 10/19/16. * Respiratory secretions. Much improved with n-acetylcysteine nebulizer starting 10/17/16. Prednisone Rx d/w yarn mercerizer operator helper Dr. Marie 10/17/16: suggests taper by 5 mg Q 3 days. Reduced from 20 mg QD to 15 mg QD on 10/18/16 * Dysphagia with G-tube feeding. To be managed by rehabilitation nursing and captain fishing vessel. * Mild erythema R eye: to use artificial tears Resolved. * Blurred vision. associate brand manager to arrange ophthalmology visit if possible. * History of pulmonary embolus. He will continue on enoxaparin at a preventive dose. It is unclear to what extent he remains at risk as I do not have history regarding how long he has been hemiparetic and the circumstances under which the pulmonary embolus happened in the past. * History of gastrointestinal bleed. Will continue famotidine. * Dyslipidemia. Will continue atorvastatin. * Constipation. Will continue his laxatives as ordered out of the hospital. * History of nausea and vomiting leading to his aspiration pneumonitis. Will continue ondansetron on a p.r.n. basis. Continue therapies to improve communication and reduce burden of care. Plan for discharge 10/27/16. 10/18/16 14:37 Subjective: No complaints. Working with [employer]. Reports via spelling board that he maintains oxygenation w/out external O2. Nurse reports much improved secretions with Mucomyst nebs. Objective: Vital Signs Temp Pulse Resp BP Pulse Ox 36.6 C 50 L 14 104/60 100 10/18/16 08:00 10/18/16 08:00 10/18/16 08:00 10/18/16 08:00 10/18/16 08:00 10/17/16 10/18/16 10/19/16 05:59 05:59 05:59 Intake Total 2262 1570 220 Output Total 1350 1675 375 Balance 912 -105 -155 Physical Exam - Physical Exam General Appearance: WD/WN, alert, no apparent distress Respiratory: normal breath sounds, rhonchi (upper respiratory rhonchi), No respiratory distress, No crackles, No wheezing Cardiac/Chest: No edema Skin: normal color, warm/dry Neuro/Psych: alert, normal mood/affect, speech abnormalities (Able to vocalize with Passey-Jeanna valve but not articulating specific vowels), other (L arm/hand ataxic but able to point to letters on spelling board; corrects past-pointing.) ICD10 Worksheet Patient Problems: Problems Problem Status Diagnosed Acute bronchitis Acute Hematemesis Acute Constipation Acute Cough Acute DVT (deep venous thrombosis) Acute Decubitus skin ulcer Acute Fall from bed, initial encounter Acute Fever Acute Hypoxia Acute Laceration of forehead Acute Nutrition disorder Acute Pneumonia Acute Respiratory distress Acute Subarachnoid hemorrhage following injury Acute Subdural hemorrhage Acute Tachycardia Acute Tracheostomy complication Acute Vomiting Acute
[2016-10-18] MEDS ORDERED: BISACODYL 10 MG SUPP PR ONE (15:28)
[2016-10-18] MEDS: BISACODYL 10 MG SUPP PR SCH ×2 (15:40→15:41)
[2016-10-18] MEDS: TEARS/DEXTRAN 70/HYPROMELLOSE 15 ML OPHT.BTL EACHEYE PRN (15:57)
[2016-10-18] MEDS: DOXAZOSIN MESYLATE 1 MG TAB TUBE SCH (20:44)
[2016-10-18] MEDS: ATORVASTATIN CALCIUM 40 MG TAB TUBE SCH (20:44)
[2016-10-18] MEDS: MELATONIN 3 MG TAB TUBE SCH (20:44)
[2016-10-18] MEDS: ALPRAZolam 0.5 MG TAB TUBE SCH (20:48)
[2016-10-19] MEDS: ACETYLCYSTEINE 10% 30 ML VIAL IH SCH ×5 (00:16→23:32)
[2016-10-19] MEDS: ENOXAPARIN 40 MG/0.4 ML SYR SC SCH (08:36)
[2016-10-19] MEDS: HYDROGEN PEROXIDE 236 ML BOTTLE TP PRN ×2 (08:37→20:50)
[2016-10-19] MEDS: predniSONE 10 MG TAB TUBE SCH (08:37)
[2016-10-19] MEDS: GLYCOPYRROLATE 1 MG TAB TUBE SCH ×3 (08:37→22:57)
[2016-10-19] MEDS: FAMOTIDINE 20 MG TAB TUBE SCH ×2 (08:37→20:46)
--- NOTE | 2016-10-19 10:39 | SOAPPROG ---
SOAP Progress Note Assessment/Plan: Assessment: 56 yo M with history of CVA with hemorrhagic transformation in 2015, aphasia, dysphagia, R hemiparesis, tracheostomy, PEG tube and rader catheter, hospitalized 09/26/16 with aspiration pneumonitis: * Status post hospitalization for aspiration pneumonitis. He appears to be back to his respiratory baseline. Continue tracheostomy care and pulmonary toilet to be provided by rehabilitation nurses. Mucomyst for secretions. 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 Initial FIM 37 on 10/17/16. Safe transfers by Kirea. Max assist of 2 for bed mobility. BUE ataxia; has control of gross movements with LUE. Continue Physical and Occupational Therapy to improve mobility and activities of daily living towards return to a correction facility at a lower level of burden of care. * Dysarthria and inability to speak. Using Passey-[place] valve with [employer]; able to speak a few words today 10/19/16. RT instructed nurse on manometry to fill trach cuff appropriately. Consult with [employer] specializing in alternative communication devices pending on 10/19/16. * Respiratory secretions. Much improved with n-acetylcysteine nebulizer starting 10/17/16. Prednisone Rx d/w electric drill operator Dr. Marie 10/17/16: suggests taper by 5 mg Q 3 days. Reduced from 20 mg QD to 15 mg QD on 10/18/16 * Dysphagia with G-tube feeding. Per rehabilitation nursing and materials handling coordinator. * Mild erythema R eye: to use artificial tears Resolved. * Blurred vision. edi manager to arrange ophthalmology visit if possible. * Anticoagulation d/w 10/19/16. She is not aware of history of pulmonary embolus. She reports CVA was due to clot in leg that traveled to brain. He had cerebral hemorrhage when first put on anticoagulants; eventually was stable on subcu heparin 5000 U TID. Has been changed to enoxaparin during most recent hospitalization prior to Inpatient Rehabilitation admission. Will request records from [facility] in [place], [place] and [facility] in 07/2015. Continue enoxaparin for now. * History of gastrointestinal bleed. Continue famotidine. * Dyslipidemia. Continue atorvastatin. * Constipation. Continue his laxatives as ordered out of the hospital. * History of nausea and vomiting leading to his aspiration pneumonitis. Will continue ondansetron on a p.r.n. basis. Continue therapies to improve communication and reduce burden of care. Plan for discharge 10/27/16. 10/19/16 10:01 10/19/16 12:55 Subjective: [employer] concerned re hearing in R ear. He reported to her a history of wax buildup. He has started forming intelligible words with [employer] using Passey-[place] valve. Denies cough or dyspnea, denies pain. Objective: Vital Signs Temp Pulse Resp BP Pulse Ox 36.3 C 50 L 16 119/72 95 10/19/16 06:52 10/19/16 06:52 10/19/16 06:52 10/19/16 06:52 10/19/16 06:52 10/18/16 10/19/16 10/20/16 05:59 05:59 05:59 Intake Total 1570 3010 Output Total 1675 1750 Balance -105 1260 Physical Exam - Physical Exam General Appearance: WD/WN, alert, no apparent distress EENT: other (Cerumen both EACs) Respiratory: No respiratory distress, No accessory muscle use Neuro/Psych: alert, normal mood/affect, speech abnormalities (Able to articulate "yes," "no," and "help" with hoarse phonation and prolonged vowels.) ICD10 Worksheet Patient Problems: Problems Problem Status Diagnosed Acute bronchitis Acute Hematemesis Acute Constipation Acute Cough Acute DVT (deep venous thrombosis) Acute Decubitus skin ulcer Acute Fall from bed, initial encounter Acute Fever Acute Hypoxia Acute Laceration of forehead Acute Nutrition disorder Acute Pneumonia Acute Respiratory distress Acute Subarachnoid hemorrhage following injury Acute Subdural hemorrhage Acute Tachycardia Acute Tracheostomy complication Acute Vomiting Acute
[2016-10-19] MEDS: SCOPOLAMINE HYDROBROMIDE 1.5 MG PATCH TD SCH (15:59)
[2016-10-19] MEDS: ALPRAZolam 0.5 MG TAB TUBE SCH (20:45)
[2016-10-19] MEDS: MELATONIN 3 MG TAB TUBE SCH (20:45)
[2016-10-19] MEDS: ATORVASTATIN CALCIUM 40 MG TAB TUBE SCH (20:46)
[2016-10-19] MEDS: DOXAZOSIN MESYLATE 1 MG TAB TUBE SCH (20:46)
[2016-10-19] MEDS: TEARS/DEXTRAN 70/HYPROMELLOSE 15 ML OPHT.BTL EACHEYE PRN (20:51)
[2016-10-19] MEDS: CARBAMIDE PEROXIDE 15 ML BOTTLE EACHEAR SCH (22:57)
[2016-10-19] MEDS: ACETAMINOPHEN 650 MG/20.3 ML UDCUP TUBE PRN (22:57)
[2016-10-20] MEDS: ACETYLCYSTEINE 10% 30 ML VIAL IH SCH ×3 (05:12→18:50)
[2016-10-20] MEDS: GLYCOPYRROLATE 1 MG TAB TUBE SCH ×3 (08:42→20:25)
[2016-10-20] MEDS: FAMOTIDINE 20 MG TAB TUBE SCH ×2 (08:42→20:26)
[2016-10-20] MEDS: HYDROGEN PEROXIDE 236 ML BOTTLE TP PRN (08:42)
[2016-10-20] MEDS: predniSONE 10 MG TAB TUBE SCH (08:42)
[2016-10-20] MEDS: ENOXAPARIN 40 MG/0.4 ML SYR SC SCH (08:42)
[2016-10-20] MEDS: CARBAMIDE PEROXIDE 15 ML BOTTLE EACHEAR SCH ×2 (10:17→20:26)
--- NOTE | 2016-10-20 14:36 | SOAPPROG ---
[id number] dysphagia, R hemiparesis, tracheostomy, PEG tube and rader catheter , hospitalized 09/26/16 with aspiration pneumonitis: * Status post hospitalization for aspiration pneumonitis. He appears to be back to his respiratory baseline. Continue tracheostomy care and pulmonary toilet to be provided by rehabilitation nurses. Mucomyst for secretions. 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 Initial FIM 37 on 10/17/16. Safe transfers by Kiera. Max assist of 2 for bed mobility. BUE ataxia; has control of gross movements with LUE. Continue Physical and Occupational Therapy to improve mobility and activities of daily living towards return to a care home facility at a lower level of burden of care. * Dysarthria and inability to speak. Using Passey-Jeanna valve with COMMERCIAL SALES CONSULTANT; able to speak a few words today 10/19/16. RT instructed nurse on manometry to fill trach cuff appropriately. Consult with COMMERCIAL SALES CONSULTANT specializing in alternative communication devices pending on 10/19/16. * Respiratory secretions. Much improved with n-acetylcysteine nebulizer starting 10/17/16. Prednisone Rx d/w qa specialist Dr. Marie 10/17/16: suggests taper by 5 mg Q 3 days. Reduced from 20 mg QD to 15 mg QD on 10/18/16 * Decubitus ulcers. Continue pressure relief and protective dressing. * Dysphagia with G-tube feeding. Per rehabilitation nursing and powerplant operator. * Mild erythema R eye: to use artificial tears Resolved. * Blurred vision. manager research development to arrange ophthalmology visit if possible. * Anticoagulation d/w 10/19/16. She is not aware of history of pulmonary embolus. She reports CVA was due to clot in leg that traveled to brain. He had cerebral hemorrhage when first put on anticoagulants; eventually was stable on subcu heparin 5000 U TID. Has been changed to enoxaparin during most recent hospitalization prior to Inpatient Rehabilitation admission. Will request records from [facility] in [place], [place] and [facility] in 07/2015. Continue enoxaparin for now. * History of gastrointestinal bleed. Continue famotidine. * Dyslipidemia. Continue atorvastatin. * Constipation. Continue his laxatives as ordered out of the hospital. * History of nausea and vomiting leading to his aspiration pneumonitis. Will continue ondansetron on a p.r.n. basis. Continue therapies to improve communication and reduce burden of care. Plan for discharge 10/27/16. 10/20/16 16:27 Subjective: R ear still feels clogged. He feels it should be flushed. O/W w/out complaints; no f/c, cough/dyspnea, n/v/c/d. Objective: Vital Signs Temp Pulse Resp BP Pulse Ox 36.8 C 58 L 16 109/64 92 10/20/16 06:08 10/20/16 06:08 10/20/16 06:08 10/20/16 06:08 10/20/16 06:08 10/19/16 10/20/16 10/21/16 05:59 05:59 05:59 Intake Total 3010 1183 Output Total 1750 2700 400 Balance 1260 -1517 -400 Physical Exam - Physical Exam General Appearance: WD/WN, alert, no apparent distress Skin: normal color, warm/dry, decubitus (Bilateral sacral 2 cm each stage II with wifer area of erythema.) Neuro/Psych: alert, normal mood/affect, motor weakness, speech abnormalities ICD10 Worksheet Patient Problems: Problems Problem Status Diagnosed Acute bronchitis Acute Hematemesis Acute Constipation Acute Cough Acute DVT (deep venous thrombosis) Acute Decubitus skin ulcer Acute Fall from bed, initial encounter Acute Fever Acute Hypoxia Acute Laceration of forehead Acute Nutrition disorder Acute Pneumonia Acute Respiratory distress Acute Subarachnoid hemorrhage following injury Acute Subdural hemorrhage Acute Tachycardia Acute Tracheostomy complication Acute Vomiting Acute
[2016-10-20] MEDS: BISACODYL 10 MG SUPP PR SCH (15:22)
[2016-10-20] MEDS: ALPRAZolam 0.5 MG TAB TUBE SCH (20:25)
[2016-10-20] MEDS: MELATONIN 3 MG TAB TUBE SCH (20:26)
[2016-10-20] MEDS: ATORVASTATIN CALCIUM 40 MG TAB TUBE SCH (20:26)
[2016-10-20] MEDS: DOXAZOSIN MESYLATE 1 MG TAB TUBE SCH (20:26)
[2016-10-21] MEDS: ACETYLCYSTEINE 10% 30 ML VIAL IH SCH ×4 (00:09→18:15)
[2016-10-21] MEDS ORDERED: SERTRALINE TUBE SCH (08:00)
[2016-10-21] MEDS: GLYCOPYRROLATE 1 MG TAB TUBE SCH ×3 (09:45→21:13)
[2016-10-21] MEDS: ENOXAPARIN 40 MG/0.4 ML SYR SC SCH (09:45)
[2016-10-21] MEDS: predniSONE 10 MG TAB TUBE SCH (09:45)
[2016-10-21] MEDS: FAMOTIDINE 20 MG TAB TUBE SCH ×2 (09:45→21:13)
[2016-10-21] MEDS: CARBAMIDE PEROXIDE 15 ML BOTTLE EACHEAR SCH ×2 (09:46→21:13)
[2016-10-21] MEDS: HYDROGEN PEROXIDE 236 ML BOTTLE TP PRN (09:53)
--- NOTE | 2016-10-21 10:25 | SOAPPROG ---
SOAP Progress Note Assessment/Plan: Assessment: 56 yo M with history of CVA with hemorrhagic transformation in 2015, aphasia, dysphagia, R hemiparesis, tracheostomy, PEG tube and rader catheter, hospitalized 09/26/16 with aspiration pneumonitis: * Status post hospitalization for aspiration pneumonitis. He appears to be back to his respiratory baseline. Continue tracheostomy care and pulmonary toilet to be provided by rehabilitation nurses. Mucomyst to help clear sputum. 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 Initial FIM 37 on 10/17/16; gain to 40 as of 10/21/16. Safe transfers by Kiera. Max assist of 2 for bed mobility. BUE ataxia; has control of gross movements with LUE. Continue Physical and Occupational Therapy to improve mobility and activities of daily living towards return to a jail facility at a lower level of burden of care. * Dysarthria and inability to speak. Using Passey-[place] valve with POWERHOUSE HELPER; able to speak a few words 10/19/16; has potential for basic verbal communication. RT instructed nurse on manometry to fill trach cuff appropriately. Evaluation initiated re alternative communication devices; issues include BUE ataxia and lack of seated balance. POWERHOUSE HELPER working with OT re positioning and UE functional issues. * Respiratory secretions. Much improved with n-acetylcysteine nebulizer starting 10/17/16. Prednisone Rx d/w battery charger Dr. Marie 10/17/16: suggests taper by 5 mg Q 3 days. Reduced from 20 mg QD to 15 mg QD on 10/18/16; reduce to 10 mg QD starting 10/22/16. Will d/w scopolamine patch; continue glycopyrrolate, 10/21/16. * Decubitus ulcers. Continue pressure relief and protective dressing. * Dysphagia with G-tube feeding. Per rehabilitation nursing and educational recruiter. * Mild erythema R eye: to use artificial tears Resolved. * Blurred vision. racing manager to arrange ophthalmology visit if possible. * Anticoagulation d/w 10/19/16. She is not aware of history of pulmonary embolus. She reports CVA was due to clot in leg that traveled to brain. He had cerebral hemorrhage when first put on anticoagulants; eventually was stable on subcu heparin 5000 U TID. Has been changed to enoxaparin during most recent hospitalization prior to Inpatient Rehabilitation admission. Will request records from [facility] in [place], [place] and [facility] in 07/2015. Continue enoxaparin for now. * History of gastrointestinal bleed. Continue famotidine. * Dyslipidemia. Continue atorvastatin. * Constipation. Continue his laxatives as ordered out of the hospital. * History of nausea and vomiting leading to his aspiration pneumonitis. Will continue ondansetron on a p.r.n. basis. Attended staffing, 25 min. D/W case mgmt, director process improvement, nursing, educational recruiter, PT, OT, POWERHOUSE HELPER. Goals include verbal communication for basic needs, augmented communication system for higher level communication, motorized wheelchair for mobility and skin integrity. Expect slow progress and a long stay. Appropriate discharge is likely to SNF nearer to , who lives in [place], and with resources for safe stay. 10/21/16 12:03 Subjective: No complaints. Denies pain, dyspnea, cough, f/c. Nurse reports copious pulmonary secretions 2 days ago but not since. Objective: Vital Signs Temp Pulse Resp BP Pulse Ox 36.4 C 51 L 16 112/69 98 10/20/16 20:00 10/20/16 20:00 10/20/16 20:00 10/20/16 20:00 10/20/16 20:00 10/20/16 10/21/16 10/22/16 05:59 05:59 05:59 Intake Total 1183 Output Total 2700 2150 Balance -1517 -2150 - Time Spent With Patient Time Spent With Patient: Greater than 35 minutes floor time today, including more than 50% of time in coordination of care during staffing meeting. Physical Exam - Physical Exam General Appearance: WD/WN, alert, no apparent distress Respiratory: normal breath sounds, No crackles, No rhonchi, No wheezing Cardiac/Chest: regular rate, rhythm, No edema Skin: normal color, warm/dry Neuro/Psych: alert, normal mood/affect, motor weakness, speech abnormalities ICD10 Worksheet Patient Problems: Problems Problem Status Diagnosed Acute bronchitis Acute Hematemesis Acute Constipation Acute Cough Acute DVT (deep venous thrombosis) Acute Decubitus skin ulcer Acute Fall from bed, initial encounter Acute Fever Acute Hypoxia Acute Laceration of forehead Acute Nutrition disorder Acute Pneumonia Acute Respiratory distress Acute Subarachnoid hemorrhage following injury Acute Subdural hemorrhage Acute Tachycardia Acute Tracheostomy complication Acute Vomiting Acute
[2016-10-21] MEDS: SERTRALINE HCL 100 MG TAB TUBE SCH (11:01)
[2016-10-21] MEDS: TEARS/DEXTRAN 70/HYPROMELLOSE 15 ML OPHT.BTL EACHEYE PRN (18:15)
[2016-10-21] MEDS: ALPRAZolam 0.5 MG TAB TUBE SCH (21:09)
[2016-10-21] MEDS: ATORVASTATIN CALCIUM 40 MG TAB TUBE SCH (21:13)
[2016-10-21] MEDS: MELATONIN 3 MG TAB TUBE SCH (21:13)
[2016-10-22] MEDS: ACETYLCYSTEINE 10% 30 ML VIAL IH SCH ×5 (00:23→23:30)
[2016-10-22] MEDS: BISACODYL 10 MG SUPP PR SCH (05:38)
[2016-10-22] MEDS: FAMOTIDINE 20 MG TAB TUBE SCH ×2 (07:53→20:27)
[2016-10-22] MEDS: CARBAMIDE PEROXIDE 15 ML BOTTLE EACHEAR SCH (07:54)
[2016-10-22] MEDS: ENOXAPARIN 40 MG/0.4 ML SYR SC SCH (07:54)
[2016-10-22] MEDS: GLYCOPYRROLATE 1 MG TAB TUBE SCH ×3 (07:54→20:26)
[2016-10-22] MEDS: predniSONE 10 MG TAB TUBE SCH (07:54)
[2016-10-22] MEDS: ACETAMINOPHEN 650 MG/20.3 ML UDCUP TUBE PRN (07:55)
[2016-10-22] MEDS: SERTRALINE HCL 100 MG TAB TUBE SCH (07:55)
[2016-10-22] MEDS: TEARS/DEXTRAN 70/HYPROMELLOSE 15 ML OPHT.BTL EACHEYE PRN ×2 (08:01→14:18)
[2016-10-22] MEDS: HYDROGEN PEROXIDE 236 ML BOTTLE TP PRN (09:44)
--- NOTE | 2016-10-22 12:45 | SOAPPROG ---
SOAP Progress Note Assessment/Plan: Assessment: 56 yo M with history of CVA with hemorrhagic transformation in 2015, aphasia, dysphagia, R hemiparesis, tracheostomy, PEG tube and rader catheter, hospitalized 09/26/16 with aspiration pneumonitis: * Status post hospitalization for aspiration pneumonitis. He appears to be back to his respiratory baseline. Continue tracheostomy care and pulmonary toilet to be provided by rehabilitation nurses. Mucomyst to help clear sputum. 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 Initial FIM 37 on 10/17/16; gain to 40 as of 10/21/16. Safe transfers by Kiera. Max assist of 2 for bed mobility. BUE ataxia; has control of gross movements with LUE. Continue Physical and Occupational Therapy to improve mobility and activities of daily living towards return to a alf facility at a lower level of burden of care. * Dysarthria and inability to speak. Using Passey-[place] valve with REGISTER IN CHANCERY; able to speak a few words 10/19/16; has potential for basic verbal communication. RT instructed nurse on manometry to fill trach cuff appropriately. Evaluation initiated re alternative communication devices; issues include BUE ataxia and lack of seated balance. REGISTER IN CHANCERY working with OT re positioning and UE functional issues. * Respiratory secretions. Much improved with n-acetylcysteine nebulizer starting 10/17/16. Prednisone Rx d/w tool lathe operator Dr. Marie 10/17/16: suggests taper by 5 mg Q 3 days. Reduced from 20 mg QD to 15 mg QD on 10/18/16; reduce to 10 mg QD starting 10/23/16. Will d/w scopolamine patch; continue glycopyrrolate, 10/21/16. * Decubitus ulcers. Continue pressure relief and protective dressing. * Dysphagia with G-tube feeding. Per rehabilitation nursing and fixed route bus operator. * Mild erythema R eye: to use artificial tears Resolved. * Blurred vision. cytology laboratory manager to arrange ophthalmology visit if possible. * Anticoagulation d/w 10/19/16. She is not aware of history of pulmonary embolus. She reports CVA was due to clot in leg that traveled to brain. He had cerebral hemorrhage when first put on anticoagulants; eventually was stable on subcu heparin 5000 U TID. Has been changed to enoxaparin during most recent hospitalization prior to Inpatient Rehabilitation admission. Will request records from [facility] in [place], [place] and [facility] in 07/2015. Continue enoxaparin for now. * History of gastrointestinal bleed. Continue famotidine. * Cerumen accumulation: resolved after Debrox treatment. * Dyslipidemia. Continue atorvastatin. * Constipation. Continue his laxatives as ordered out of the hospital. * History of nausea and vomiting leading to his aspiration pneumonitis. Will continue ondansetron on a p.r.n. basis. Goals include verbal communication for basic needs, augmented communication system for higher level communication, motorized wheelchair for mobility and skin integrity. Expect slow progress and a long stay. Appropriate discharge is likely to SNF nearer to , who lives in [place], and with resources for safe stay. 10/22/16 12:42 Subjective: No complaints. Asks re eye exam. Right ear feels better. Objective: Vital Signs Temp Pulse Resp BP Pulse Ox 36.8 C 66 18 108/66 99 10/22/16 06:47 10/22/16 06:47 10/22/16 06:47 10/22/16 06:47 10/22/16 10:00 10/21/16 10/22/16 10/23/16 05:59 05:59 05:59 Intake Total 150 Output Total 2150 1600 Balance -2150 -1600 150 Physical Exam - Physical Exam General Appearance: WD/WN, alert, no apparent distress EENT: other (R EAC without cerumen, R TM wnl.) Respiratory: No respiratory distress, No accessory muscle use Skin: normal color, warm/dry Neuro/Psych: alert, normal mood/affect, motor weakness, other (Sitting up in chair. Ataxic LUE but able to use spelling board.) ICD10 Worksheet Patient Problems: Problems Problem Status Diagnosed Acute bronchitis Acute Hematemesis Acute Constipation Acute Cough Acute DVT (deep venous thrombosis) Acute Decubitus skin ulcer Acute Fall from bed, initial encounter Acute Fever Acute Hypoxia Acute Laceration of forehead Acute Nutrition disorder Acute Pneumonia Acute Respiratory distress Acute Subarachnoid hemorrhage following injury Acute Subdural hemorrhage Acute Tachycardia Acute Tracheostomy complication Acute Vomiting Acute
[2016-10-22] MEDS: IPRATROPIUM/ALBUTEROL 3 ML DEYVIAL IH PRN (18:09)
[2016-10-22] MEDS: ATORVASTATIN CALCIUM 40 MG TAB TUBE SCH (20:26)
[2016-10-22] MEDS: MELATONIN 3 MG TAB TUBE SCH (20:26)
[2016-10-22] MEDS: ALPRAZolam 0.5 MG TAB TUBE SCH (20:27)
[2016-10-23] MEDS: ACETYLCYSTEINE 10% 30 ML VIAL IH SCH ×3 (05:28→16:37)
[2016-10-23] MEDS: ACETAMINOPHEN 650 MG/20.3 ML UDCUP TUBE PRN ×2 (07:59→15:24)
[2016-10-23] MEDS: ENOXAPARIN 40 MG/0.4 ML SYR SC SCH (08:00)
[2016-10-23] MEDS: POLYETHYLENE GLYCOL 3350 17 GM PKT TUBE PRN (08:00)
[2016-10-23] MEDS: FAMOTIDINE 20 MG TAB TUBE SCH ×2 (08:00→19:55)
[2016-10-23] MEDS: GLYCOPYRROLATE 1 MG TAB TUBE SCH ×3 (08:00→22:16)
[2016-10-23] MEDS: predniSONE 10 MG TAB TUBE SCH (08:01)
[2016-10-23] MEDS: TEARS/DEXTRAN 70/HYPROMELLOSE 15 ML OPHT.BTL EACHEYE PRN ×2 (08:01→13:30)
[2016-10-23] MEDS: SERTRALINE HCL 100 MG TAB TUBE SCH (08:01)
[2016-10-23] MEDS: HYDROGEN PEROXIDE 236 ML BOTTLE TP PRN (08:02)
--- NOTE | 2016-10-23 11:34 | SOAPPROG ---
SOAP Progress Note Assessment/Plan: Assessment: 56 yo M with history of CVA with hemorrhagic transformation in 2015, aphasia, dysphagia, R hemiparesis, tracheostomy, PEG tube and rader catheter, hospitalized 09/26/16 with aspiration pneumonitis: * Status post hospitalization for aspiration pneumonitis. He appears to be back to his respiratory baseline. Continue tracheostomy care and pulmonary toilet to be provided by rehabilitation nurses. Mucomyst to help clear sputum. 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 Initial FIM 37 on 10/17/16; gain to 40 as of 10/21/16. Safe transfers by Kiera. Max assist of 2 for bed mobility. BUE ataxia; has control of gross movements with LUE. Continue Physical and Occupational Therapy to improve mobility and activities of daily living towards return to a long term facility at a lower level of burden of care. * Dysarthria and inability to speak. Using Passey-[place] valve with DIRECTOR OF DESIGN; able to speak a few words 10/19/16; has potential for basic verbal communication. RT instructed nurse on manometry to fill trach cuff appropriately. Evaluation initiated re alternative communication devices; issues include BUE ataxia and lack of seated balance. DIRECTOR OF DESIGN working with OT re positioning and UE functional issues. * Respiratory secretions. Much improved with n-acetylcysteine nebulizer starting 10/17/16. Prednisone Rx d/w crown attacher Dr. Marie 10/17/16: suggests taper by 5 mg Q 3 days. Reduced from 20 mg QD to 15 mg QD on 10/18/16; reduce to 10 mg QD starting 10/23/16. Will d/w scopolamine patch; continue glycopyrrolate, 10/21/16. Increased secretions off scopolamine? Increase glycopyrrolate from 1 mg TID to 2 mg TID. Consider reinstatement of scopolamine ; favoring glycopyrrolate for better side effect profile. * Decubitus ulcers. Continue pressure relief and protective dressing. * Dysphagia with G-tube feeding. Per rehabilitation nursing and senior oracle dba. * Mild erythema R eye: to use artificial tears Resolved. * Blurred vision. manager cath lab to arrange ophthalmology visit if possible. * Anticoagulation d/w 10/19/16. She is not aware of history of pulmonary embolus. She reports CVA was due to clot in leg that traveled to brain. He had cerebral hemorrhage when first put on anticoagulants; eventually was stable on subcu heparin 5000 U TID. Has been changed to enoxaparin during most recent hospitalization prior to Inpatient Rehabilitation admission. Will request records from [facility] in [place], [place] and [facility] in 07/2015. Continue enoxaparin for now. * History of gastrointestinal bleed. Continue famotidine. * Cerumen accumulation: resolved after Debrox treatment. * Dyslipidemia. Continue atorvastatin. * Constipation. Continue his laxatives as ordered out of the hospital. * History of nausea and vomiting leading to his aspiration pneumonitis. Will continue ondansetron on a p.r.n. basis. Goals include verbal communication for basic needs, augmented communication system for higher level communication, motorized wheelchair for mobility and skin integrity. Expect slow progress and a long stay. Appropriate discharge is likely to SNF nearer to , who lives in [place], and with resources for safe stay. 10/23/16 11:31 Subjective: Nurse reports increased secretions requiring increased suctioning when Passey- [place]anna valve is discontinued after using for a period of time. He denies dyspnea , f/c. Objective: Vital Signs Temp Pulse Resp BP Pulse Ox 36.4 C 62 16 120/65 93 10/23/16 06:59 10/23/16 06:59 10/23/16 06:59 10/23/16 06:59 10/23/16 06:59 10/22/16 10/23/16 10/24/16 05:59 05:59 05:59 Intake Total 1880 150 Output Total 1600 1900 Balance -1600 -20 150 Physical Exam - Physical Exam General Appearance: WD/WN, alert, no apparent distress Respiratory: normal breath sounds, other (Lung exam confoudned by upper respiratory rhonchi), No crackles, No rhonchi, No stridor Cardiac/Chest: regular rate, rhythm, No edema Neuro/Psych: alert, normal mood/affect ICD10 Worksheet Patient Problems: Problems Problem Status Diagnosed Acute bronchitis Acute Hematemesis Acute Constipation Acute Cough Acute DVT (deep venous thrombosis) Acute Decubitus skin ulcer Acute Fall from bed, initial encounter Acute Fever Acute Hypoxia Acute Laceration of forehead Acute Nutrition disorder Acute Pneumonia Acute Respiratory distress Acute Subarachnoid hemorrhage following injury Acute Subdural hemorrhage Acute Tachycardia Acute Tracheostomy complication Acute Vomiting Acute
[2016-10-23] MEDS: IPRATROPIUM/ALBUTEROL 3 ML DEYVIAL IH PRN (15:24)
[2016-10-23] MEDS: MELATONIN 3 MG TAB TUBE SCH (19:55)
[2016-10-23] MEDS: ATORVASTATIN CALCIUM 40 MG TAB TUBE SCH (19:55)
[2016-10-23] MEDS: ALPRAZolam 0.5 MG TAB TUBE SCH (19:55)
[2016-10-23] MEDS: PETROLAT,WHT/MIN OIL/SOD CHL 3.5 GM OPHT.OINT EACHEYE SCH (20:14)
[2016-10-24] MEDS: IPRATROPIUM/ALBUTEROL 3 ML DEYVIAL IH PRN ×2 (02:02→23:38)
[2016-10-24] MEDS: ACETYLCYSTEINE 10% 30 ML VIAL IH SCH ×5 (02:09→23:38)
[2016-10-24] MEDS: BISACODYL 10 MG SUPP PR SCH (06:08)
[2016-10-24] MEDS: ACETAMINOPHEN 650 MG/20.3 ML UDCUP TUBE PRN (06:08)
[2016-10-24] MEDS: ENOXAPARIN 40 MG/0.4 ML SYR SC SCH (08:48)
[2016-10-24] MEDS: GLYCOPYRROLATE 1 MG TAB TUBE SCH ×3 (08:49→22:03)
[2016-10-24] MEDS: predniSONE 10 MG TAB TUBE SCH (08:49)
[2016-10-24] MEDS: FAMOTIDINE 20 MG TAB TUBE SCH ×2 (08:49→20:58)
[2016-10-24] MEDS: SERTRALINE HCL 100 MG TAB TUBE SCH (08:52)
--- NOTE | 2016-10-24 11:25 | SOAPPROG ---
SOAP Progress Note Assessment/Plan: Assessment: 56 yo M with history of CVA with hemorrhagic transformation in 2015, aphasia, dysphagia, R hemiparesis, tracheostomy, PEG tube and rader catheter, hospitalized 09/26/16 with aspiration pneumonitis: * Status post hospitalization for aspiration pneumonitis. He appears to be back to his respiratory baseline. Continue tracheostomy care and pulmonary toilet to be provided by rehabilitation nurses. Mucomyst to help clear sputum. 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 Initial FIM 37 on 10/17/16; gain to 40 as of 10/21/16. Safe transfers by Kiera. Max assist of 2 for bed mobility. BUE ataxia; has control of gross movements with LUE. Continue Physical and Occupational Therapy to improve mobility and activities of daily living towards return to a shelter facility at a lower level of burden of care. * Dysarthria and inability to speak. Using Passey-[place] valve with CODE ENFORCEMENT OFFICER; able to speak a few words 10/19/16; has potential for basic verbal communication. RT instructed nurse on manometry to fill trach cuff appropriately. Evaluation initiated re alternative communication devices; issues include BUE ataxia and lack of seated balance. CODE ENFORCEMENT OFFICER working with OT re positioning and UE functional issues. * Respiratory secretions. Much improved with n-acetylcysteine nebulizer starting 10/17/16. Prednisone Rx d/w guidance and control system engineer Dr. Marie 10/17/16: suggests taper by 5 mg Q 3 days. Reduced from 20 mg QD to 15 mg QD on 10/18/16; reduce to 10 mg QD starting 10/23/16. Will d/w scopolamine patch; continue glycopyrrolate, 10/21/16. Increased secretions off scopolamine? Increase glycopyrrolate from 1 mg TID to 2 mg TID. Consider reinstatement of scopolamine ; favoring glycopyrrolate for better side effect profile. * Decubitus ulcers. Continue pressure relief and protective dressing. * Dysphagia with G-tube feeding. Per rehabilitation nursing and eligibility and occupancy interviewer. * Mild erythema R eye: to use artificial tears Resolved. * Blurred vision. manager hvac to arrange ophthalmology visit if possible. * Anticoagulation d/w 10/19/16. She is not aware of history of pulmonary embolus. She reports CVA was due to clot in leg that traveled to brain. He had cerebral hemorrhage when first put on anticoagulants; eventually was stable on subcu heparin 5000 U TID. Has been changed to enoxaparin during most recent hospitalization prior to Inpatient Rehabilitation admission. Will request records from [facility] in [place], [place] and [facility] in 07/2015. Continue enoxaparin for now. * History of gastrointestinal bleed. Continue famotidine. * Cerumen accumulation: resolved after Debrox treatment. * Dyslipidemia. Continue atorvastatin. * Constipation. Continue his laxatives as ordered out of the hospital. * History of nausea and vomiting leading to his aspiration pneumonitis. Will continue ondansetron on a p.r.n. basis. Goals include verbal communication for basic needs, augmented communication system for higher level communication, motorized wheelchair for mobility and skin integrity. Expect slow progress and a long stay. Appropriate discharge is likely to SNF nearer to , who lives in [place], and with resources for safe stay. 10/24/16 11:23 Subjective: C/O being awakened at night for repositioning. Gets back to sleep after. No dyspnea. Nurse reports much improved secretions with increased glycopyrrolate. OT noted an episode of apnea followed by coughing up a mucous plug. He reported feeling hungry yesterday. Objective: Vital Signs Temp Pulse Resp BP Pulse Ox 37 C 68 16 112/70 95 10/24/16 07:53 10/24/16 07:53 10/24/16 07:53 10/24/16 07:53 10/24/16 07:53 10/23/16 10/24/16 10/25/16 05:59 05:59 05:59 Intake Total 1880 3110 Output Total 1900 1750 Balance -20 1360 Physical Exam - Physical Exam General Appearance: WD/WN, alert, no apparent distress Respiratory: No respiratory distress, No accessory muscle use Skin: normal color, warm/dry Neuro/Psych: alert, normal mood/affect ICD10 Worksheet Patient Problems: Problems Problem Status Diagnosed Acute bronchitis Acute Hematemesis Acute Constipation Acute Cough Acute DVT (deep venous thrombosis) Acute Decubitus skin ulcer Acute Fall from bed, initial encounter Acute Fever Acute Hypoxia Acute Laceration of forehead Acute Nutrition disorder Acute Pneumonia Acute Respiratory distress Acute Subarachnoid hemorrhage following injury Acute Subdural hemorrhage Acute Tachycardia Acute Tracheostomy complication Acute Vomiting Acute
[2016-10-24] MEDS ORDERED: NYSTATIN POWDER 15 GM BTL TP PRN (11:26)
[2016-10-24] MEDS: ALPRAZolam 0.5 MG TAB TUBE SCH (20:54)
[2016-10-24] MEDS: MELATONIN 3 MG TAB TUBE SCH (20:55)
[2016-10-24] MEDS: PETROLAT,WHT/MIN OIL/SOD CHL 3.5 GM OPHT.OINT EACHEYE SCH (20:55)
[2016-10-24] MEDS: ATORVASTATIN CALCIUM 40 MG TAB TUBE SCH (20:55)
[2016-10-25] MEDS: IPRATROPIUM/ALBUTEROL 3 ML DEYVIAL IH PRN ×3 (05:06→22:53)
[2016-10-25] MEDS: ACETYLCYSTEINE 10% 30 ML VIAL IH SCH ×4 (05:06→22:53)
[2016-10-25] MEDS: FAMOTIDINE 20 MG TAB TUBE SCH ×2 (07:51→20:16)
[2016-10-25] MEDS: GLYCOPYRROLATE 1 MG TAB TUBE SCH ×3 (07:51→22:53)
[2016-10-25] MEDS: ENOXAPARIN 40 MG/0.4 ML SYR SC SCH (07:51)
[2016-10-25] MEDS: SERTRALINE HCL 100 MG TAB TUBE SCH (07:52)
[2016-10-25] MEDS: predniSONE 10 MG TAB TUBE SCH (07:52)
[2016-10-25] MEDS: TEARS/DEXTRAN 70/HYPROMELLOSE 15 ML OPHT.BTL EACHEYE PRN (07:52)
--- NOTE | 2016-10-25 14:44 | SOAPPROG ---
SOAP Progress Note Assessment/Plan: Assessment: 56 yo M with history of CVA with hemorrhagic transformation in 2015, aphasia, dysphagia, R hemiparesis, tracheostomy, PEG tube and rader catheter, hospitalized 09/26/16 with aspiration pneumonitis: * Status post hospitalization for aspiration pneumonitis. He appears to be back to his respiratory baseline. Continue tracheostomy care and pulmonary toilet to be provided by rehabilitation nurses. Mucomyst to help clear sputum. 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 Initial FIM 37 on 10/17/16; gain to 40 as of 10/21/16. Safe transfers by Kiera. Max assist of 2 for bed mobility. BUE ataxia; has control of gross movements with LUE. Continue Physical and Occupational Therapy to improve mobility and activities of daily living towards return to a fdc facility at a lower level of burden of care. * Dysarthria and inability to speak. Using [place] valve with COLOR DEPOSITING MACHINE TENDER; able to speak a few words 10/19/16; has potential for basic verbal communication. RT instructed nurse on manometry to fill trach cuff appropriately. Evaluation initiated re alternative communication devices; issues include BUE ataxia and lack of seated balance. COLOR DEPOSITING MACHINE TENDER working with OT re positioning and UE functional issues. * Respiratory secretions. Much improved with n-acetylcysteine nebulizer starting 10/17/16. Prednisone Rx d/w welder shielded metal arc Dr. Marie 10/17/16: suggests taper by 5 mg Q 3 days. Reduced from 20 mg QD to 15 mg QD on 10/18/16; reduce to 10 mg QD starting 10/23/16. Will d/w scopolamine patch; continue glycopyrrolate, 10/21/16. Increased secretions off scopolamine? Increase glycopyrrolate from 1 mg TID to 2 mg TID. Consider reinstatement of scopolamine ; favoring glycopyrrolate for better side effect profile. * Decubitus ulcers. Continue pressure relief and protective dressing. * Orthostatic hypotension: asymptomatic. Adequate hydration, no BP meds. May improve orthostatic tolerance with continued PT. * Dysphagia with G-tube feeding. Per rehabilitation nursing and flush tester. * Mild erythema R eye: to use artificial tears Resolved. * Blurred vision. blogs manager to arrange ophthalmology visit if possible. * Anticoagulation d/w 10/19/16. She is not aware of history of pulmonary embolus. She reports CVA was due to clot in leg that traveled to brain. He had cerebral hemorrhage when first put on anticoagulants; eventually was stable on subcu heparin 5000 U TID. Has been changed to enoxaparin during most recent hospitalization prior to Inpatient Rehabilitation admission. Will request records from [facility] in [place], [place] and [facility] in 07/2015. Continue enoxaparin for now. * History of gastrointestinal bleed. Continue famotidine. * Cerumen accumulation: resolved after Debrox treatment. * Dyslipidemia. Continue atorvastatin. * Constipation. Continue his laxatives as ordered out of the hospital. * History of nausea and vomiting leading to his aspiration pneumonitis. Will continue ondansetron on a p.r.n. basis. Goals include verbal communication for basic needs, augmented communication system for higher level communication, motorized wheelchair for mobility and skin integrity. Expect slow progress and a long stay. Appropriate discharge is likely to SNF nearer to , who lives in [place], and with resources for safe stay. 10/25/16 14:42 Subjective: Therapy staff noted orthostatic BP drop when he stood in standing frame. He denies feeling lightheaded. BP 121/82 supine, 69/43 standing. He reports he used to take BP meds. Objective: Vital Signs Temp Pulse Resp BP Pulse Ox 37.0 C 84 20 108/64 98 10/25/16 06:10 10/25/16 06:10 10/25/16 08:00 10/25/16 06:10 10/25/16 08:00 10/24/16 10/25/16 10/26/16 05:59 05:59 05:59 Intake Total 3110 1100 Output Total 1750 1700 Balance 1360 -600 Physical Exam - Physical Exam General Appearance: WD/WN, alert, no apparent distress Respiratory: No respiratory distress, No accessory muscle use Skin: normal color, warm/dry Neuro/Psych: alert, normal mood/affect, motor weakness ICD10 Worksheet Patient Problems: Problems Problem Status Diagnosed Acute bronchitis Acute Hematemesis Acute Constipation Acute Cough Acute DVT (deep venous thrombosis) Acute Decubitus skin ulcer Acute Fall from bed, initial encounter Acute Fever Acute Hypoxia Acute Laceration of forehead Acute Nutrition disorder Acute Pneumonia Acute Respiratory distress Acute Subarachnoid hemorrhage following injury Acute Subdural hemorrhage Acute Tachycardia Acute Tracheostomy complication Acute Vomiting Acute
--- NOTE | 2016-10-25 15:52 | WOCRNPDOC ---
WOCRN Advanced Assessment Note - Skin Integrity Problem, Advanced Assess Bilateral Buttock Dressing Type: Allevyn Life Dressing Description: Intact Exudate Amount: Scant Exudate Color: Reddish/Yellow Exudate Characteristic(s): Serosanguinous Integumentary Issue Intervention: Visualized Under Dressing Whitney Wound Tissue: Blanching, Erythema Whitney Wound Swelling: Mild Wound Bed Color: Red Wound Bed Constitution: Smooth Tissue Wound Edges: Epithelizing Skin Integrity Problem Comment: Wounds on bilateral buttocks improved since previous assessment. Partial-thickness tissue loss still evident on both the right and left side, epithelializing at margins. Whitney-wound tissue remains mildly denuded, presently blanching. It continues to be a challenge to provide a moist healing environment for wounds while keeping whitney-wound skin dry. Continue w/ tx of skin prep and Allevyn Life dressings, and off-load buttocks when in bed. I also recommend keeping him brief-free to minimize both heat and moisture.
[2016-10-25] MEDS: ATORVASTATIN CALCIUM 40 MG TAB TUBE SCH (20:15)
[2016-10-25] MEDS: ALPRAZolam 0.5 MG TAB TUBE SCH (20:15)
[2016-10-25] MEDS: MELATONIN 3 MG TAB TUBE SCH (20:16)
[2016-10-25] MEDS: PETROLAT,WHT/MIN OIL/SOD CHL 3.5 GM OPHT.OINT EACHEYE SCH (20:37)
[2016-10-26] MEDS: ACETYLCYSTEINE 10% 30 ML VIAL IH SCH ×4 (05:17→23:03)
[2016-10-26] MEDS: IPRATROPIUM/ALBUTEROL 3 ML DEYVIAL IH PRN ×4 (05:17→23:03)
[2016-10-26] MEDS: FAMOTIDINE 20 MG TAB TUBE SCH ×2 (09:36→20:09)
[2016-10-26] MEDS: ENOXAPARIN 40 MG/0.4 ML SYR SC SCH (09:36)
[2016-10-26] MEDS: predniSONE 10 MG TAB TUBE SCH (09:36)
[2016-10-26] MEDS: GLYCOPYRROLATE 1 MG TAB TUBE SCH ×3 (09:36→22:54)
[2016-10-26] MEDS: SERTRALINE HCL 100 MG TAB TUBE SCH (09:36)
--- NOTE | 2016-10-26 10:23 | SOAPPROG ---
SOAP Progress Note Assessment/Plan: Assessment: 56 yo M with history of CVA with hemorrhagic transformation in 2015, aphasia, dysphagia, R hemiparesis, tracheostomy, PEG tube and rader catheter, hospitalized 09/26/16 with aspiration pneumonitis: * Status post hospitalization for aspiration pneumonitis. He appears to be back to his respiratory baseline. Continue tracheostomy care and pulmonary toilet to be provided by rehabilitation nurses. Mucomyst to help clear sputum. 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 Initial FIM 37 on 10/17/16; gain to 40 as of 10/21/16. Safe transfers by Kiera. Max assist of 2 for bed mobility. BUE ataxia; has control of gross movements with LUE. Continue Physical and Occupational Therapy to improve mobility and activities of daily living towards return to a penitentiary facility at a lower level of burden of care. * Dysarthria and inability to speak. Using Passey-[place] valve with OIL WELL SERVICES SUPERVISOR; able to speak a few words 10/19/16; has potential for basic verbal communication. RT instructed nurse on manometry to fill trach cuff appropriately. Evaluation initiated re alternative communication devices; issues include BUE ataxia and lack of seated balance. OIL WELL SERVICES SUPERVISOR working with OT re positioning and UE functional issues. * Respiratory secretions. Much improved with n-acetylcysteine nebulizer starting 10/17/16. Prednisone Rx d/w ticket printer and tagger Dr. Marie 10/17/16: suggests taper by 5 mg Q 3 days. Reduced from 20 mg QD to 15 mg QD on 10/18/16; reduce to 10 mg QD starting 10/23/16; reduce further to 50 mg starting 10/27/16. Will d/ c scopolamine patch; continue glycopyrrolate, 10/21/16. Increased secretions off scopolamine? Increase glycopyrrolate from 1 mg TID to 2 mg TID on 10/24/16. Consider reinstatement of scopolamine; favoring glycopyrrolate for better side effect profile. * Decubitus ulcers. Continue pressure relief and protective dressing. Healing. * Orthostatic hypotension: asymptomatic. Adequate hydration, no BP meds. May improve orthostatic tolerance with continued PT. * Dysphagia with G-tube feeding. Per rehabilitation nursing and athletic gear custodian. * Mild erythema R eye: to use artificial tears Resolved. Scratched L eye? Continue artificial tears PRN and observe for resolution. * Blurred vision. deli manager to arrange ophthalmology visit if possible. * Anticoagulation d/w 10/19/16. She is not aware of history of pulmonary embolus. She reports CVA was due to clot in leg that traveled to brain. He had cerebral hemorrhage when first put on anticoagulants; eventually was stable on subcu heparin 5000 U TID. Has been changed to enoxaparin during most recent hospitalization prior to Inpatient Rehabilitation admission. Will request records from [facility] in [place], [place] and [facility] in 07/2015. Continue enoxaparin for now. * History of gastrointestinal bleed. Continue famotidine. * Cerumen accumulation: resolved after Debrox treatment. * Dyslipidemia. Continue atorvastatin. * Constipation. Continue his laxatives as ordered out of the hospital. * History of nausea and vomiting leading to his aspiration pneumonitis. Will continue ondansetron on a p.r.n. basis. Goals include verbal communication for basic needs, augmented communication system for higher level communication, motorized wheelchair for mobility and skin integrity. Expect slow progress and a long stay. Appropriate discharge is likely to SNF nearer to , who lives in [place], and with resources for safe stay. 10/26/16 10:21 10/27/16 12:23 Subjective: C/O L eye irritation. Thinks he may have inadvertently scratched it. O/W w/ out complaints. No dyspnea, f/c. Objective: Vital Signs Temp Pulse Resp BP Pulse Ox 37.0 C 62 12 104/64 95 10/26/16 05:54 10/26/16 05:54 10/26/16 05:54 10/26/16 05:54 10/26/16 05:54 10/25/16 10/26/16 10/27/16 05:59 05:59 05:59 Intake Total 0003 1700 Output Total 1700 2000 Balance 815 1390 Physical Exam - Physical Exam General Appearance: WD/WN, alert, no apparent distress EENT: other (Injected sclera L eye) Respiratory: No respiratory distress, No accessory muscle use Skin: normal color, warm/dry, decubitus (B buttocks mostly epithelialized) Neuro/Psych: alert, normal mood/affect, motor weakness ICD10 Worksheet Patient Problems: Problems Problem Status Diagnosed Acute bronchitis Acute Hematemesis Acute Constipation Acute Cough Acute DVT (deep venous thrombosis) Acute Decubitus skin ulcer Acute Fall from bed, initial encounter Acute Fever Acute Hypoxia Acute Laceration of forehead Acute Nutrition disorder Acute Pneumonia Acute Respiratory distress Acute Subarachnoid hemorrhage following injury Acute Subdural hemorrhage Acute Tachycardia Acute Tracheostomy complication Acute Vomiting Acute
--- NOTE | 2016-10-26 10:34 | NOWCEV ---
[facility] WHEELCHAIR CLINIC EVALUATION AND LETTER OF JUSTIFICATION Patient Name: VJ WILLIAM Physician: cleopatra Zhu MD Eval Date: 10/26/16 Therapist: Ria Franklin MS,PT Date of : 1960 MR#: [id number] Contact: Subscriber: VJ WILLIAM Primary Ins: [employer] IP Subscriber #: EVALUATION FINDINGS Medical history - Vj is a 56y/o male with history of multiple CVAs including a cerebellar stroke and an intracranial hemorrhage. 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 He has chronic respiratory failure requiring tracheostomy, chronic dysphagia requiring a PEG tube, a urinary catheter, HTN, benign prostatic hypertrophy, and a sacral decubitus ulcer. For the past several years he has been residing in a SNF where he did not spend much time OOB as appropriate seating was not available. At the beginning of September 2016 he was dx with aspiration pneumonia and was admitted to the ER and ultimately to inpatient rehab. PT referred to seating clinic to have recommendations made for the most medically appropriate w/c and seating to improve mobility posture and respiratory function. Functional Mobility - Vj is dependent for all transfers to/from bed and chair. He requires mechanical assistance from a olvin lift or manual maximal assistance of 2 people to complete chair to/from bed transitions. To perform bed mobility, he requires assistance of 2 people for trunk and LE management with supine to/from sit transitions. To complete rolling he requires max A x1 plus use of a bed rail. Vj is unable to stand or ambulate. He is not able to self propel a MWC due to R sided hemiparesis and ataxia throughout his extremities and trunk. Vj has participated in PWC trials and was able to safely drive a PWC with dampened controls though door frames and down a hallways demonstrating appropriate obstacle navigation with supervision. Head/Trunk control - Vj has severely impaired trunk control. He requires mod A to maintain sitting at the EOB, and demonstrate no effective righting or postural responses with LOB. He is unable to utilize his R UE to effectively brace for control. Vj is able to maintain head control in sitting but, is unable to sustain head control for longer periods of time without external support. Motor involvement - Vj's R side is more impacted by his stroke than his L, but he does demonstrate ataxia in his trunk and all extremities with movement. MMT is as followed:hip flexion R: 3-/5, L: 4-/5, knee ext R: 2-/5, L: 3+/5, DF R : 1/5, L: 3/5, shoulder flexion and abduction: R 2-/5, L: 3-/5, elbow flexion R 3/5, L 4-/5. Vj's stitch bonder machine operator helper strength is severely limited- and he is unable to grasp to perform functional tasks with his R UE due to hypotonicity. With his L hand, he has significant impairments in motor control, but is able to functional grasp and point, as well as drive a chair with a dampened control on the joystick. 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 He is hypotonic throughout his R UE. Posture - Sitting in his current [employer] reclining wheelchair, Vj sits with a significant posterior pelvic tilt. R shoulder is significantly lower than the L. He leans to the R due to poor proprioceptive awareness and R sided weakness and requires S to ensure upright posture is maintained. Skin Sensation - Vj has 2 stage II decubitus ulcers B on his sacrum. They are each approximately 2cm in diameter each. Sensation is likely impaired on the R, but unable to formally assess due to communication barriers. He is not continent of bowel or bladder, but does utilize a urinary catheter. Endurance - The amount of time that Vj spends OOB has been limited in the past due to limited access to an appropriate seating system. This puts his already compromised respiratory system at further risk for complication. With an appropriate seating system, it is anticipated that Vj will be able to spend large portions of the day OOB without placing him at risk for further skin breakdown. This will play a role in improving his respiratory function, and ability to interact with his environment. ADLs - Vj requires max A x2 to complete ADLs such as dressing and bathing. He can assist with rolling to dress by reaching with his L UE for the bed rail and moving his LLE. I has a catheter to control urinary incontience and is not continent of bowel. Cognitive/Social - Vj has been residing in [facility] for an unknown amount of time. He is , and his lives in [place]. 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 He has significant communication impairments, and primarily communicates by pointing to letters on a board to spell words with in L hand. He is currently being trained to utilize an ipad/[employer] system to improve his ability to communicate. Goal for discharge from inpatient rehab would be for Vj to progress to an assisted living setting. Current wheelchair - Vj does not currently own his is own wheelchair. When residing in the SNF, Vj did not spend much time out of bed, as there was not a chair to accommodate his needs. This placed him at greater risk for respiratory complications. He is currently utilizing a recliner wheelchair while in inpatient rehab. This chair does not adequately meet his needs as it causes him to sit with a severe post pelvic tilt, and slouched to the R, and requires pillows to prop his trunk for posture and control. The poor posture in this chair does not promote function or respiration. Additionally he is not able to self propel a MWC due to R sided hemiparesis and L sided weakness and coordination issues. MEDICAL and FUNCTIONAL NEED/OBJECTIVES To procure a custom PWC and seating system to provide Vj with increased level of independence with mobility, and to promote healing/prevent future skin breakdown. EQUIPMENT RECOMMENDATIONS AND JUSTIFICATIONS The following recommendations are believed to be the most cost effective way to meet the patients medical and functional needs. * Group 3 power base * Tilt in space: * Posterior positioning backrest (Matrx PB with 5" contour): Needed to provide Vj with postural control and support when he is in his PWC. It will also work in conjunction with his seat cushion to provide adequate pressure relief and distribution to promote healing of current sacral ulcers. The high contour back will allow Vj to control his ataxia and provide support to maintain midline without LOB. This in turn will improve his respiratory function and provide him with the postural control to allow safe driving of his PWC. * Matrix florentino cushion: Needed to provide adequate pressure relief and distribution to promote skin health and healing of current stage 2 sacral ulcers. Vj was pressure mapped on this cushion and he demonstrated very good pressure distribution. No areas of pressure >80mmHG were noted. Additionally, the cushion will work in conjunction with his posterior positioning backrest to provide appropriate postural support and control while operating his PWC. * R arm trough (ottoboch style) with elbow stopper: Needed to provide Vj with support for his hypotonic R UE. This will provide his R shoulder with support and prevent it from subluxing due to decreased muscle activation. Additionally this trough will help keep his R wrist in extension to manage/ prevent swelling in his R hand. The elbow block is necessary so that Rubi arm does not slide backward and become caught when utilizing the tilt in space function. * Height adjustable arm rests * Head rest with removable mount: Needed to provide Vj with head control has he fatigues when sitting in his chair. Additionally required to provide Vj with support of this cervical spine when utilizing the [id number] function on his chair. * Swing away leg rests and angle adjustable foot plates: Needed to provide Vj with LE support to maintain proper pelvic positions which will ensure maintenance of postaural control and stability. Angle adjustable foot plates needed to accommodate PF contracture in his R foot. * Communication device mount: Needed to * Padded positioning seatbelt: Needed to stabilize Vj's pelvis so ensure maintenance of proper posture and safety when sitting in his PWC and when driving. * Transit tie downs * Attendant drive for PWC These recommendations are based on the likelihood that VJ will require the use of a wheelchair for mobility for the rest of his life. If you have any questions or concerns regarding the stated recommendations, please feel free to contact the therapist at . Thank you for your cooperation in obtaining the necessary equipment for this patient. JAC Greene
[2016-10-26] MEDS: ATORVASTATIN CALCIUM 40 MG TAB TUBE SCH (20:08)
[2016-10-26] MEDS: ALPRAZolam 0.5 MG TAB TUBE SCH (20:08)
[2016-10-26] MEDS: PETROLAT,WHT/MIN OIL/SOD CHL 3.5 GM OPHT.OINT EACHEYE SCH (20:09)
[2016-10-26] MEDS: MELATONIN 3 MG TAB TUBE SCH (20:09)
[2016-10-27] MEDS: ACETYLCYSTEINE 10% 30 ML VIAL IH SCH ×3 (06:35→17:44)
[2016-10-27] MEDS: IPRATROPIUM/ALBUTEROL 3 ML DEYVIAL IH PRN (06:36)
[2016-10-27] MEDS: FAMOTIDINE 20 MG TAB TUBE SCH ×2 (07:54→20:52)
[2016-10-27] MEDS: SERTRALINE HCL 100 MG TAB TUBE SCH (07:57)
[2016-10-27] MEDS: GLYCOPYRROLATE 1 MG TAB TUBE SCH ×3 (07:59→20:53)
[2016-10-27] MEDS: predniSONE 10 MG TAB TUBE SCH (07:59)
[2016-10-27] MEDS: ENOXAPARIN 40 MG/0.4 ML SYR SC SCH (08:01)
[2016-10-27] MEDS: IPRATROPIUM/ALBUTEROL 3 ML DEYVIAL IH SCH ×2 (12:07→17:44)
--- NOTE | 2016-10-27 12:32 | SOAPPROG ---
SOAP Progress Note Assessment/Plan: Assessment: 56 yo M with history of CVA with hemorrhagic transformation in 2015, aphasia, dysphagia, R hemiparesis, tracheostomy, PEG tube and rader catheter, hospitalized 09/26/16 with aspiration pneumonitis: * Status post hospitalization for aspiration pneumonitis. He appears to be back to his respiratory baseline. Continue tracheostomy care and pulmonary toilet to be provided by rehabilitation nurses. Mucomyst to help clear sputum. 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 Initial FIM 37 on 10/17/16; gain to 40 as of 10/21/16. Safe transfers by Kiera. Max assist of 2 for bed mobility. BUE ataxia; has control of gross movements with LUE. Continue Physical and Occupational Therapy to improve mobility and activities of daily living towards return to a [facility] facility at a lower level of burden of care. * Dysarthria and inability to speak. Using [place] valve with E/M ENGINEER; able to speak a few words 10/19/16; has potential for basic verbal communication. RT instructed nurse on manometry to fill trach cuff appropriately. Evaluation initiated re alternative communication devices; issues include BUE ataxia and lack of seated balance. E/M ENGINEER working with OT re positioning and UE functional issues. * Respiratory secretions. Much improved with n-acetylcysteine nebulizer starting 10/17/16. Prednisone Rx d/w special deputy sheriff Dr. Marie 10/17/16: suggests taper by 5 mg Q 3 days. Reduced from 20 mg QD to 15 mg QD on 10/18/16; reduce to 10 mg QD starting 10/23/16; reduce further to 50 mg starting 10/27/16. Will d/ c scopolamine patch; continue glycopyrrolate, 10/21/16. Increased secretions off scopolamine? Increase glycopyrrolate from 1 mg TID to 2 mg TID on 10/24/16. Consider reinstatement of scopolamine; favoring glycopyrrolate for better side effect profile. * Decubitus ulcers. Continue pressure relief and protective dressing. Healing. * Orthostatic hypotension: asymptomatic. Adequate hydration, no BP meds. May improve orthostatic tolerance with continued PT. * Dysphagia with G-tube feeding. Per rehabilitation nursing and fiberglass autobody repairer. * Mild erythema R eye: to use artificial tears Resolved. Scratched L eye ? Continue artificial tears PRN; improving 2/2/17. * Blurred vision. Ophthalmology visit today 10/27/16. * Anticoagulation d/w 10/19/16. She is not aware of history of pulmonary embolus. She reports CVA was due to clot in leg that traveled to brain. He had cerebral hemorrhage when first put on anticoagulants; eventually was stable on subcu heparin 5000 U TID. Has been changed to enoxaparin during most recent hospitalization prior to Inpatient Rehabilitation admission. Will request records from [facility] in [place], [place] and [facility] in 07/2015. Continue enoxaparin for now. * History of gastrointestinal bleed. Continue famotidine. * Cerumen accumulation: resolved after Debrox treatment. * Dyslipidemia. Continue atorvastatin. * Constipation. Continue his laxatives as ordered out of the hospital. * History of nausea and vomiting leading to his aspiration pneumonitis. Will continue ondansetron on a p.r.n. basis. Goals include verbal communication for basic needs, augmented communication system for higher level communication, motorized wheelchair for mobility and skin integrity. Expect slow progress and a long stay. Appropriate discharge is likely to SNF nearer to , who lives in [place], and with resources for safe stay. 10/27/16 12:26 Subjective: No complaints. L eye feels better. No cough/dyspnea, f/c. Secretions OK. Objective: Vital Signs Temp Pulse Resp BP Pulse Ox 37.3 C 59 L 12 128/74 H 94 10/27/16 05:34 10/27/16 05:34 10/27/16 05:34 10/27/16 05:34 10/27/16 05:34 10/26/16 10/27/16 10/28/16 05:59 05:59 05:59 Intake Total 7000 3504 Output Total 1999 2024 Balance 1390 1481 Physical Exam - Physical Exam General Appearance: WD/WN, alert, no apparent distress, other (Sitting up in wheelchair.) Respiratory: normal breath sounds, No crackles, No rhonchi, No wheezing Skin: normal color, warm/dry Neuro/Psych: alert, normal mood/affect, aphasia (Communicating by spelling board ), motor weakness ICD10 Worksheet Patient Problems: Problems Problem Status Diagnosed Acute bronchitis Acute Hematemesis Acute Constipation Acute Cough Acute DVT (deep venous thrombosis) Acute Decubitus skin ulcer Acute Fall from bed, initial encounter Acute Fever Acute Hypoxia Acute Laceration of forehead Acute Nutrition disorder Acute Pneumonia Acute Respiratory distress Acute Subarachnoid hemorrhage following injury Acute Subdural hemorrhage Acute Tachycardia Acute Tracheostomy complication Acute Vomiting Acute
[2016-10-27] MEDS: ATORVASTATIN CALCIUM 40 MG TAB TUBE SCH (20:53)
[2016-10-27] MEDS: ALPRAZolam 0.5 MG TAB TUBE SCH (20:53)
[2016-10-27] MEDS: PETROLAT,WHT/MIN OIL/SOD CHL 3.5 GM OPHT.OINT EACHEYE SCH (20:53)
[2016-10-27] MEDS: MELATONIN 3 MG TAB TUBE SCH (20:53)
[2016-10-28] MEDS: IPRATROPIUM/ALBUTEROL 3 ML DEYVIAL IH SCH ×5 (00:39→23:59)
[2016-10-28] MEDS: ACETYLCYSTEINE 10% 30 ML VIAL IH SCH ×5 (00:39→23:59)
[2016-10-28] MEDS: FAMOTIDINE 20 MG TAB TUBE SCH ×2 (08:20→21:02)
[2016-10-28] MEDS: SERTRALINE HCL 100 MG TAB TUBE SCH (08:37)
[2016-10-28] MEDS: GLYCOPYRROLATE 1 MG TAB TUBE SCH ×3 (08:37→21:02)
[2016-10-28] MEDS: predniSONE 10 MG TAB TUBE SCH (08:38)
[2016-10-28] MEDS: ENOXAPARIN 40 MG/0.4 ML SYR SC SCH (08:39)
--- NOTE | 2016-10-28 12:54 | SOAPPROG ---
SOAP Progress Note Assessment/Plan: Assessment: 56 yo M with history of CVA with hemorrhagic transformation in 2015, aphasia, dysphagia, R hemiparesis, tracheostomy, PEG tube and rader catheter, hospitalized 09/26/16 with aspiration pneumonitis: on 10/28 he is doing well overall , monitoring feeding residuals and allowing short periods of O2 by NC when out of room, otherwise plan below is relatively unchanged. * Status post hospitalization for aspiration pneumonitis. He appears to be back to his respiratory baseline. Continue tracheostomy care and pulmonary toilet to be provided by rehabilitation nurses. Mucomyst to help clear sputum. 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 Initial FIM 37 on 10/17/16; gain to 40 as of 10/21/16. Safe transfers by Kiera. Max assist of 2 for bed mobility. BUE ataxia; has control of gross movements with LUE. Continue Physical and Occupational Therapy to improve mobility and activities of daily living towards return to a prison facility at a lower level of burden of care. * Dysarthria and inability to speak. Using Passey[place] valve with MARINE ENGINEER; able to speak a few words 10/19/16; has potential for basic verbal communication. RT instructed nurse on manometry to fill trach cuff appropriately. Evaluation initiated re alternative communication devices; issues include BUE ataxia and lack of seated balance. MARINE ENGINEER working with OT re positioning and UE functional issues. * Respiratory secretions. Much improved with n-acetylcysteine nebulizer starting 10/17/16. Prednisone Rx d/w internal grinder Dr. Marie 10/17/16: suggests taper by 5 mg Q 3 days. Reduced from 20 mg QD to 15 mg QD on 10/18/16; reduce to 10 mg QD starting 10/23/16; reduce further to 50 mg starting 10/27/16. Will d/ c scopolamine patch; continue glycopyrrolate, 10/21/16. Increased secretions off scopolamine? Increase glycopyrrolate from 1 mg TID to 2 mg TID on 10/24/16. Consider reinstatement of scopolamine; favoring glycopyrrolate for better side effect profile. Continue humidified O2 with short periods of O2 by NC when out of room. * Decubitus ulcers. Continue pressure relief and protective dressing. Healing. Wound care following for bed recs as shear is still an issue. * Orthostatic hypotension: asymptomatic. Adequate hydration, no BP meds. May improve orthostatic tolerance with continued PT. * Dysphagia with G-tube feeding. Per rehabilitation nursing and academic intern. Monitor for high residuals in setting of increased TF. * Mild erythema R eye: to use artificial tears Resolved. Scratched L eye ? Continue artificial tears PRN; improving 10/27/16. * Blurred vision. Ophthalmology visit today 10/27/16. * Anticoagulation d/w 10/19/16. She is not aware of history of pulmonary embolus. She reports CVA was due to clot in leg that traveled to brain. He had cerebral hemorrhage when first put on anticoagulants; eventually was stable on subcu heparin 5000 U TID. Has been changed to enoxaparin during most recent hospitalization prior to Inpatient Rehabilitation admission. Will request records from [facility] in [place], [place] and [facility] in 07/2015. Continue enoxaparin for now. * History of gastrointestinal bleed. Continue famotidine. * Cerumen accumulation: resolved after Debrox treatment. * Dyslipidemia. Continue atorvastatin. * Constipation. Continue his laxatives as ordered out of the hospital. * History of nausea and vomiting leading to his aspiration pneumonitis. Will continue ondansetron on a p.r.n. basis. Goals include verbal communication for basic needs, augmented communication system for higher level communication, motorized wheelchair for mobility and skin integrity. Expect slow progress and a long stay. Appropriate discharge is likely to SNF nearer to , who lives in [place], and with resources for safe stay. All medical issues are new to this provider. Plan: 10/28/16 12:49 Subjective: CC: neurological stability and respiratory insufficiency, tube feeding No acute events overnight. Pt answered with head movement and with communication board. secretion management going well, but goal to have him OOB in absence of humidified oxygen. He had secretion management problems, improving. He is breathing well, using PM valve for speaking, secretions are thinning per nursing. He reports no new neurological changes like weakness, numbness, tingling, or confusion. Overall therapies going well. He had an elevated TF residual of 250 cc this AM, has not repeated. TF was increased in past day. Pt denies any abdominal discomfort but would like to eat. Sleeping well, family in [place], goal to DC to place near home. Objective: Vital Signs Temp Pulse Resp BP Pulse Ox 37.1 C 61 18 144/96 H 97 10/28/16 08:00 10/28/16 08:00 10/28/16 08:00 10/28/16 08:00 10/28/16 08:00 10/27/16 10/28/16 10/29/16 05:59 05:59 05:59 Intake Total 1480 0482 Output Total 5456 8148 Balance 1480 0857 - Time Spent With Patient Time Spent With Patient: 15 min - Pending Discharge Pending Discharge Within 24 Hours: No Pending Discharge Within 48 Hours: No Physical Exam - Physical Exam General Appearance: alert, no apparent distress EENT: No PERRL/EOMI (dysconjuate gaze), No scleral icterus (R), No scleral icterus (L) Neck: other (trach in place, no PM on when seen) Respiratory: rhonchi, No respiratory distress, No accessory muscle use, No decreased breath sounds, No stridor, No wheezing Cardiac/Chest: normal peripheral pulses, regular rate, rhythm, No edema Abdomen: normal bowel sounds, non-tender, soft, No rebound Skin: normal color Extremities: non-tender, No pedal edema, No swelling Neuro/Psych: alert, normal mood/affect, motor weakness, speech abnormalities ( Used comm board, head nod) ICD10 Worksheet Patient Problems: Problems Problem Status Diagnosed Acute bronchitis Acute Hematemesis Acute Impaired mobility and activities of daily living Acute Constipation Acute Cough Acute DVT (deep venous thrombosis) Acute Decubitus skin ulcer Acute Fall from bed, initial encounter Acute Fever Acute Hypoxia Acute Laceration of forehead Acute Nutrition disorder Acute Pneumonia Acute Respiratory distress Acute Subarachnoid hemorrhage following injury Acute Subdural hemorrhage Acute Tachycardia Acute Tracheostomy complication Acute Vomiting Acute - ICD10 Problem Qualifiers (1) Impaired mobility and activities of daily living
[2016-10-28] MEDS: ATORVASTATIN CALCIUM 40 MG TAB TUBE SCH (21:01)
[2016-10-28] MEDS: ALPRAZolam 0.5 MG TAB TUBE SCH (21:01)
[2016-10-28] MEDS: MELATONIN 3 MG TAB TUBE SCH (21:02)
[2016-10-29] MEDS: PETROLAT,WHT/MIN OIL/SOD CHL 3.5 GM OPHT.OINT EACHEYE SCH (00:02)
[2016-10-29] MEDS: HYDROGEN PEROXIDE 236 ML BOTTLE TP PRN ×2 (00:30→09:34)
[2016-10-29] MEDS: ACETYLCYSTEINE 10% 30 ML VIAL IH SCH ×3 (06:03→17:51)
[2016-10-29] MEDS: IPRATROPIUM/ALBUTEROL 3 ML DEYVIAL IH SCH ×3 (06:03→17:51)
[2016-10-29] MEDS: TEARS/DEXTRAN 70/HYPROMELLOSE 15 ML OPHT.BTL EACHEYE PRN ×3 (09:33→16:52)
[2016-10-29] MEDS: ENOXAPARIN 40 MG/0.4 ML SYR SC SCH (09:33)
[2016-10-29] MEDS: FAMOTIDINE 20 MG TAB TUBE SCH ×2 (09:33→20:14)
[2016-10-29] MEDS: GLYCOPYRROLATE 1 MG TAB TUBE SCH ×3 (09:34→20:12)
[2016-10-29] MEDS: predniSONE 10 MG TAB TUBE SCH (09:34)
[2016-10-29] MEDS: SERTRALINE HCL 100 MG TAB TUBE SCH (09:34)
--- NOTE | 2016-10-29 17:05 | SOAPPROG ---
SOAP Progress Note Assessment/Plan: 56 yo M with history of CVA with hemorrhagic transformation in 2015, aphasia, dysphagia, R hemiparesis, tracheostomy, PEG tube and rader catheter, hospitalized 09/26/16 with aspiration pneumonitis: on 10/28 he is doing well overall , monitoring feeding residuals and allowing short periods of O2 by NC when out of room, otherwise plan below is relatively unchanged. * Status post hospitalization for aspiration pneumonitis. He appears to be back to his respiratory baseline. Continue tracheostomy care and pulmonary toilet to be provided by rehabilitation nurses. Mucomyst to help clear sputum. 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 Initial FIM 37 on 10/17/16; gain to 40 as of 10/21/16. Safe transfers by Kiera. Max assist of 2 for bed mobility. BUE ataxia; has control of gross movements with LUE. Continue Physical and Occupational Therapy to improve mobility and activities of daily living towards return to a halfway facility at a lower level of burden of care. * Dysarthria and inability to speak. Using Passey-[place] valve with PROTOTYPE FABRICATOR; able to speak a few words 10/19/16; has potential for basic verbal communication. RT instructed nurse on manometry to fill trach cuff appropriately. Evaluation initiated re alternative communication devices; issues include BUE ataxia and lack of seated balance. PROTOTYPE FABRICATOR working with OT re positioning and UE functional issues. * Respiratory secretions. Much improved with n-acetylcysteine nebulizer starting 10/17/16. Prednisone Rx d/w rapid transit operator Dr. Marie 10/17/16: suggests taper by 5 mg Q 3 days. Reduced from 20 mg QD to 15 mg QD on 10/18/16; reduce to 10 mg QD starting 10/23/16; reduce further to 50 mg starting 10/27/16. Will d/ c scopolamine patch; continue glycopyrrolate, 10/21/16. Increased secretions off scopolamine? Increase glycopyrrolate from 1 mg TID to 2 mg TID on 10/24/16. Consider reinstatement of scopolamine; favoring glycopyrrolate for better side effect profile. Continue humidified O2 with short periods of O2 by NC when out of room. * Decubitus ulcers. Continue pressure relief and protective dressing. Healing. Wound care following for bed recs as shear is still an issue. * Orthostatic hypotension: asymptomatic. Adequate hydration, no BP meds. May improve orthostatic tolerance with continued PT. * Dysphagia with G-tube feeding. Per rehabilitation nursing and rotor coil taper. Monitor for high residuals in setting of increased TF. * Mild erythema R eye: to use artificial tears Resolved. Scratched L eye ? Continue artificial tears PRN; improving 10/27/16. * Blurred vision. Ophthalmology visit today 10/27/16. * Anticoagulation d/w 10/19/16. She is not aware of history of pulmonary embolus. She reports CVA was due to clot in leg that traveled to brain. He had cerebral hemorrhage when first put on anticoagulants; eventually was stable on subcu heparin 5000 U TID. Has been changed to enoxaparin during most recent hospitalization prior to Inpatient Rehabilitation admission. Will request records from [facility] in [place], [place] and [facility] in 07/2015. Continue enoxaparin for now. * History of gastrointestinal bleed. Continue famotidine. * Cerumen accumulation: resolved after Debrox treatment. * Dyslipidemia. Continue atorvastatin. * Constipation. Continue his laxatives as ordered out of the hospital. * History of nausea and vomiting leading to his aspiration pneumonitis. Will continue ondansetron on a p.r.n. basis. Goals include verbal communication for basic needs, augmented communication system for higher level communication, motorized wheelchair for mobility and skin integrity. Expect slow progress and a long stay. Appropriate discharge is likely to SNF nearer to , who lives in [place], and with resources for safe stay. Subjective: No acute events. no complaints today. Was able to get outside for some fresh air. denies sob/CP/chills. Objective: Vital Signs Temp Pulse Resp BP Pulse Ox 36.4 C 63 14 114/79 96 10/29/16 06:31 10/29/16 06:31 10/29/16 10:00 10/29/16 06:31 10/29/16 11:28 10/28/16 10/29/16 10/30/16 05:59 05:59 05:59 Intake Total 8093 6769 250 Output Total 1450 1900 650 Balance 7432 -611 -400 - Pending Discharge Pending Discharge Within 24 Hours: No Pending Discharge Within 48 Hours: No Physical Exam - Physical Exam General Appearance: alert, no apparent distress Neck: supple Respiratory: lungs clear (passy jeanna in place. mild upper airway noises) Cardiac/Chest: regular rate, rhythm Abdomen: normal bowel sounds, non-tender, soft Skin: normal color, warm/dry Neuro/Psych: alert, normal mood/affect, speech abnormalities (communicating well with board, answers questions appropriately) ICD10 Worksheet Patient Problems: Problems Problem Status Diagnosed Acute bronchitis Acute Hematemesis Acute Impaired mobility and activities of daily living Acute Constipation Acute Cough Acute DVT (deep venous thrombosis) Acute Decubitus skin ulcer Acute Fall from bed, initial encounter Acute Fever Acute Hypoxia Acute Laceration of forehead Acute Nutrition disorder Acute Pneumonia Acute Respiratory distress Acute Subarachnoid hemorrhage following injury Acute Subdural hemorrhage Acute Tachycardia Acute Tracheostomy complication Acute Vomiting Acute
[2016-10-29] MEDS: MELATONIN 3 MG TAB TUBE SCH (20:13)
[2016-10-29] MEDS: ATORVASTATIN CALCIUM 40 MG TAB TUBE SCH (20:14)
[2016-10-29] MEDS: ALPRAZolam 0.5 MG TAB TUBE SCH (20:14)
[2016-10-30] MEDS: ACETYLCYSTEINE 10% 30 ML VIAL IH SCH ×4 (00:16→16:43)
[2016-10-30] MEDS: IPRATROPIUM/ALBUTEROL 3 ML DEYVIAL IH SCH ×4 (00:16→16:31)
[2016-10-30] MEDS: PETROLAT,WHT/MIN OIL/SOD CHL 3.5 GM OPHT.OINT EACHEYE SCH ×2 (00:20→21:50)
--- NOTE | 2016-10-30 08:12 | SOAPPROG ---
SOAP Progress Note Assessment/Plan: 56 yo M with history of CVA with hemorrhagic transformation in 2015, aphasia, dysphagia, R hemiparesis, tracheostomy, PEG tube and rader catheter, hospitalized 09/26/16 with aspiration pneumonitis: on 10/28 he is doing well overall , monitoring feeding residuals and allowing short periods of O2 by NC when out of room, otherwise plan below is relatively unchanged. * Status post hospitalization for aspiration pneumonitis. He appears to be back to his respiratory baseline. Continue tracheostomy care and pulmonary toilet to be provided by rehabilitation nurses. Mucomyst to help clear sputum. 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 Initial FIM 37 on 10/17/16; gain to 40 as of 10/21/16. Safe transfers by Kiera. Max assist of 2 for bed mobility. BUE ataxia; has control of gross movements with LUE. Continue Physical and Occupational Therapy to improve mobility and activities of daily living towards return to a long term facility at a lower level of burden of care. * Dysarthria and inability to speak. Using Passey-[place] valve with SOFT DRINK POWDER MIXER; able to speak a few words 10/19/16; has potential for basic verbal communication. RT instructed nurse on manometry to fill trach cuff appropriately. Evaluation initiated re alternative communication devices; issues include BUE ataxia and lack of seated balance. SOFT DRINK POWDER MIXER working with OT re positioning and UE functional issues. * Respiratory secretions. Much improved with n-acetylcysteine nebulizer starting 10/17/16. Prednisone Rx d/w block hacker Dr. Marie 10/17/16: suggests taper by 5 mg Q 3 days. Reduced from 20 mg QD to 15 mg QD on 10/18/16; reduce to 10 mg QD starting 10/23/16; reduce further to 50 mg starting 10/27/16. Will d/ c scopolamine patch; continue glycopyrrolate, 10/21/16. Increased secretions off scopolamine? Increase glycopyrrolate from 1 mg TID to 2 mg TID on 10/24/16. Consider reinstatement of scopolamine; favoring glycopyrrolate for better side effect profile. Continue humidified O2 with short periods of O2 by NC when out of room. * Decubitus ulcers. Continue pressure relief and protective dressing. Healing. Wound care following for bed recs as shear is still an issue. * Orthostatic hypotension: asymptomatic. Adequate hydration, no BP meds. May improve orthostatic tolerance with continued PT. * Dysphagia with G-tube feeding. Per rehabilitation nursing and supervisor braiding. Monitor for high residuals in setting of increased TF. * Mild erythema R eye: to use artificial tears Resolved. Scratched L eye ? Continue artificial tears PRN; improving 10/27/16. * Blurred vision. Ophthalmology visit today 10/27/16. * Anticoagulation d/w 10/19/16. She is not aware of history of pulmonary embolus. She reports CVA was due to clot in leg that traveled to brain. He had cerebral hemorrhage when first put on anticoagulants; eventually was stable on subcu heparin 5000 U TID. Has been changed to enoxaparin during most recent hospitalization prior to Inpatient Rehabilitation admission. Will request records from [facility] in [place], [place] and [facility] in 07/2015. Continue enoxaparin for now. * History of gastrointestinal bleed. Continue famotidine. * Cerumen accumulation: resolved after Debrox treatment. * Dyslipidemia. Continue atorvastatin. * Constipation. Continue his laxatives as ordered out of the hospital. * History of nausea and vomiting leading to his aspiration pneumonitis. Will continue ondansetron on a p.r.n. basis. Goals include verbal communication for basic needs, augmented communication system for higher level communication, motorized wheelchair for mobility and skin integrity. Expect slow progress and a long stay. Appropriate discharge is likely to SNF nearer to , who lives in [place], and with resources for safe stay. Subjective: No acute events. No complaints this am. Denies pain/ SOB/ chills. Objective: Vital Signs Temp Pulse Resp BP Pulse Ox 36.9 C 67 14 132/77 H 96 10/30/16 06:41 10/30/16 06:41 10/30/16 06:41 10/30/16 06:41 10/30/16 06:41 10/29/16 10/30/16 10/31/16 05:59 05:59 05:59 Intake Total 1799 1700 Output Total 0110 661 725 Balance -101 1050 725 - Pending Discharge Pending Discharge Within 24 Hours: No Pending Discharge Within 48 Hours: No Physical Exam - Physical Exam General Appearance: alert, no apparent distress EENT: other (trach in place without exudate) Neck: supple Respiratory: rhonchi, No respiratory distress Cardiac/Chest: regular rate, rhythm Abdomen: non-tender, soft Skin: normal color, warm/dry Neuro/Psych: alert, normal mood/affect ICD10 Worksheet Patient Problems: Problems Problem Status Diagnosed Acute bronchitis Acute Hematemesis Acute Impaired mobility and activities of daily living Acute Constipation Acute Cough Acute DVT (deep venous thrombosis) Acute Decubitus skin ulcer Acute Fall from bed, initial encounter Acute Fever Acute Hypoxia Acute Laceration of forehead Acute Nutrition disorder Acute Pneumonia Acute Respiratory distress Acute Subarachnoid hemorrhage following injury Acute Subdural hemorrhage Acute Tachycardia Acute Tracheostomy complication Acute Vomiting Acute
[2016-10-30] MEDS: ENOXAPARIN 40 MG/0.4 ML SYR SC SCH (10:45)
[2016-10-30] MEDS: FAMOTIDINE 20 MG TAB TUBE SCH ×2 (10:45→20:36)
[2016-10-30] MEDS: ACETAMINOPHEN 650 MG/20.3 ML UDCUP TUBE PRN (10:45)
[2016-10-30] MEDS: GLYCOPYRROLATE 1 MG TAB TUBE SCH ×3 (10:46→21:46)
[2016-10-30] MEDS: predniSONE 10 MG TAB TUBE SCH (10:46)
[2016-10-30] MEDS: POLYETHYLENE GLYCOL 3350 17 GM PKT TUBE PRN (10:46)
[2016-10-30] MEDS: SERTRALINE HCL 100 MG TAB TUBE SCH (10:46)
[2016-10-30] MEDS: TEARS/DEXTRAN 70/HYPROMELLOSE 15 ML OPHT.BTL EACHEYE PRN ×2 (10:47→16:28)
[2016-10-30] MEDS: HYDROGEN PEROXIDE 236 ML BOTTLE TP PRN (10:50)
[2016-10-30] MEDS: ALPRAZolam 0.5 MG TAB TUBE SCH (20:36)
[2016-10-30] MEDS: ATORVASTATIN CALCIUM 40 MG TAB TUBE SCH (20:36)
[2016-10-30] MEDS: MELATONIN 3 MG TAB TUBE SCH (20:36)
[2016-10-31] MEDS: ACETYLCYSTEINE 10% 30 ML VIAL IH SCH ×5 (00:14→23:00)
[2016-10-31] MEDS: IPRATROPIUM/ALBUTEROL 3 ML DEYVIAL IH SCH ×5 (00:15→23:01)
[2016-10-31] MEDS: BISACODYL 10 MG SUPP PR SCH (05:26)
[2016-10-31] MEDS: ENOXAPARIN 40 MG/0.4 ML SYR SC SCH (08:39)
[2016-10-31] MEDS: GLYCOPYRROLATE 1 MG TAB TUBE SCH ×3 (08:41→23:00)
[2016-10-31] MEDS: FAMOTIDINE 20 MG TAB TUBE SCH ×2 (08:41→20:21)
[2016-10-31] MEDS: SERTRALINE HCL 100 MG TAB TUBE SCH (08:41)
[2016-10-31] MEDS: predniSONE 10 MG TAB TUBE SCH (08:41)
--- NOTE | 2016-10-31 15:45 | SOAPPROG ---
SOAP Progress Note Assessment/Plan: Assessment: 56 yo M with history of CVA with hemorrhagic transformation in 2015, aphasia, dysphagia, R hemiparesis, tracheostomy, PEG tube and rader catheter, hospitalized 09/26/16 with aspiration pneumonitis: * Status post hospitalization for aspiration pneumonitis. He appears to be back to his respiratory baseline. Continue tracheostomy care and pulmonary toilet to be provided by rehabilitation nurses. Mucomyst to help clear sputum. 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 Initial FIM 37 on 10/17/16; gain to 40 as of 10/21/16. Safe transfers by Kiera. Max assist of 2 for bed mobility. BUE ataxia; has control of gross movements with LUE. Continue Physical and Occupational Therapy to improve mobility and activities of daily living towards return to a alf facility at a lower level of burden of care. * Dysarthria and inability to speak. Using Passey-[place] valve with LODGING MANAGER; able to speak a few words 10/19/16; has potential for basic verbal communication. RT instructed nurse on manometry to fill trach cuff appropriately. Evaluation initiated re alternative communication devices; issues include BUE ataxia and lack of seated balance. LODGING MANAGER working with OT re positioning and UE functional issues. * Respiratory secretions. Much improved with n-acetylcysteine nebulizer starting 10/17/16. Prednisone Rx d/w chief nuclear medicine technologist Dr. Marie 10/17/16: suggests taper by 5 mg Q 3 days. Reduced from 20 mg QD to 15 mg QD on 10/18/16; reduce to 10 mg QD starting 10/23/16; reduce further to 50 mg starting 10/27/16. Will d/ c scopolamine patch; continue glycopyrrolate, 10/21/16. Increased secretions off scopolamine? Increase glycopyrrolate from 1 mg TID to 2 mg TID on 10/24/16. Consider reinstatement of scopolamine; favoring glycopyrrolate for better side effect profile. * Decubitus ulcers. Continue pressure relief and protective dressing. Healing. * Orthostatic hypotension: asymptomatic. Adequate hydration, no BP meds. May improve orthostatic tolerance with continued PT. * Dysphagia with G-tube feeding. Per rehabilitation nursing and principal programmer. * Mild erythema R eye: to use artificial tears Resolved. Scratched L eye ? Seen by ophthalmology 10/27/16: ointment in L eye and tape shut QHS; unable to keep lid closed on his own. No corneal abrasion or ulcer. * Anticoagulation d/w 10/19/16. She is not aware of history of pulmonary embolus. She reports CVA was due to clot in leg that traveled to brain. He had cerebral hemorrhage when first put on anticoagulants; eventually was stable on subcu heparin 5000 U TID. Has been changed to enoxaparin during most recent hospitalization prior to Inpatient Rehabilitation admission. Will request records from [facility] in [place], [place] and [facility] in 07/2015. Continue enoxaparin for now. * History of gastrointestinal bleed. Continue famotidine. * Cerumen accumulation: resolved after Debrox treatment. * Dyslipidemia. Continue atorvastatin. * Constipation. Continue his laxatives as ordered out of the hospital. * History of nausea and vomiting leading to his aspiration pneumonitis. Will continue ondansetron on a p.r.n. basis. Goals include verbal communication for basic needs, augmented communication system for higher level communication, motorized wheelchair for mobility and skin integrity. Expect slow progress and a long stay. Appropriate discharge is likely to SNF nearer to , who lives in [place], and with resources for safe stay. 10/31/16 15:43 Subjective: No complaints. Denies cough, dyspnea, f/c. Had bowel movement today. Working with PT. Objective: Vital Signs Temp Pulse Resp BP Pulse Ox 36.9 C 61 16 116/61 95 10/31/16 06:50 10/31/16 06:50 10/31/16 06:50 10/31/16 06:50 10/31/16 06:50 10/30/16 10/31/16 11/01/16 05:59 05:59 05:59 Intake Total 1700 1450 1100 Output Total 886 2575 Balance 1050 -1125 1100 Physical Exam - Physical Exam General Appearance: WD/WN, alert, no apparent distress Respiratory: No respiratory distress, No accessory muscle use Cardiac/Chest: No edema Skin: normal color, warm/dry Neuro/Psych: alert, normal mood/affect, motor weakness ICD10 Worksheet Patient Problems: Problems Problem Status Diagnosed Acute bronchitis Acute Hematemesis Acute Impaired mobility and activities of daily living Acute Constipation Acute Cough Acute DVT (deep venous thrombosis) Acute Decubitus skin ulcer Acute Fall from bed, initial encounter Acute Fever Acute Hypoxia Acute Laceration of forehead Acute Nutrition disorder Acute Pneumonia Acute Respiratory distress Acute Subarachnoid hemorrhage following injury Acute Subdural hemorrhage Acute Tachycardia Acute Tracheostomy complication Acute Vomiting Acute
--- NOTE | 2016-10-31 15:50 | WOCRNPDOC ---
WOCRN Advanced Assessment Note - Skin Integrity Problem, Advanced Assess Bilateral Buttock Dressing Type: Allevyn Life (x2) Dressing Description: Clean/Dry, Intact Exudate Amount: None Integumentary Issue Intervention: Dressing Changed Irene Wound Swelling: None Wound Bed Color: Purple, Red Wound Bed Constitution: Healed Site Measurement - Head-to-Toe Length X Width X Depth (cm): L buttock scar: 3.75x2.25x0, right buttock scar 4.5x2.5x0, Skin Integrity Problem Comment: Extensive areas approximately the size of a quarter on bilateral buttocks from frequent and prolonged friction. Skin around both scarred areas is peeling and dry. Applied [place] skin protectant to all areas and covered with extra large allevyn life dressing. Bharti RN in room for care. Advise RN's to try and leave dressing intact between changes to minimize tramatizing wound beds. Wound care will round again in approximately two weeks if needed. Please note that area cannot be expected to improve any more unless the etiology (friction force on the tissues) changes. Wound care cannot offer any new solutions for improving the patient's status past current plan of care. Right Sacrum Pressure Injury Dressing Type: Allevyn Life Site Measurement - Head-to-Toe Length X Width X Depth (cm): 2x1x0 Pressure Injury Stage: Stage 1 Pressure Injury Present on Admit: No Skin Integrity Problem Comment: Applied marathon skin protectant and a large sacral dressing.
[2016-10-31] MEDS: ALPRAZolam 0.5 MG TAB TUBE SCH (20:21)
[2016-10-31] MEDS: ATORVASTATIN CALCIUM 40 MG TAB TUBE SCH (20:21)
[2016-10-31] MEDS: MELATONIN 3 MG TAB TUBE SCH (20:21)
[2016-10-31] MEDS: PETROLAT,WHT/MIN OIL/SOD CHL 3.5 GM OPHT.OINT EACHEYE SCH (23:13)
[2016-11-01] MEDS: ACETYLCYSTEINE 10% 30 ML VIAL IH SCH ×4 (06:15→23:55)
[2016-11-01] MEDS: IPRATROPIUM/ALBUTEROL 3 ML DEYVIAL IH SCH ×4 (06:15→23:55)
[2016-11-01] MEDS: FAMOTIDINE 20 MG TAB TUBE SCH ×2 (09:23→20:59)
[2016-11-01] MEDS: GLYCOPYRROLATE 1 MG TAB TUBE SCH ×4 (09:23→20:59)
[2016-11-01] MEDS: ENOXAPARIN 40 MG/0.4 ML SYR SC SCH (09:23)
[2016-11-01] MEDS: predniSONE 10 MG TAB TUBE SCH (09:24)
[2016-11-01] MEDS: SERTRALINE HCL 100 MG TAB TUBE SCH (09:24)
[2016-11-01] MEDS: ACETAMINOPHEN 650 MG/20.3 ML UDCUP TUBE PRN (09:25)
[2016-11-01] MEDS: TEARS/DEXTRAN 70/HYPROMELLOSE 15 ML OPHT.BTL EACHEYE PRN ×2 (12:19→17:07)
--- NOTE | 2016-11-01 12:58 | SOAPPROG ---
SOAP Progress Note Assessment/Plan: Assessment: 56 yo M with history of CVA with hemorrhagic transformation in 2015, aphasia, dysphagia, R hemiparesis, tracheostomy, PEG tube and rader catheter, hospitalized 09/26/16 with aspiration pneumonitis: * Status post hospitalization for aspiration pneumonitis. He appears to be back to his respiratory baseline. Continue tracheostomy care and pulmonary toilet to be provided by rehabilitation nurses. Mucomyst to help clear sputum. 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 Initial FIM 37 on 10/17/16; gain to 40 as of 10/21/16. Safe transfers by Kiera. Max assist of 2 for bed mobility. BUE ataxia; has control of gross movements with LUE. Continue Physical and Occupational Therapy to improve mobility and activities of daily living towards return to a retirement facility at a lower level of burden of care. * Dysarthria and inability to speak. Using Passey-[place] valve with [employer] BPM DEVELOPER; able to speak a few words 10/19/16; has potential for basic verbal communication. RT instructed nurse on manometry to fill trach cuff appropriately. Evaluation initiated re alternative communication devices; issues include BUE ataxia and lack of seated balance. [employer] BPM DEVELOPER working with OT re positioning and UE functional issues. * Diaphoresis: check UA re possible UTI. * Respiratory secretions. Much improved with n-acetylcysteine nebulizer starting 10/17/16. Prednisone Rx d/w outside salesperson Dr. Marie 10/17/16: suggests taper by 5 mg Q 3 days. Reduced from 20 mg QD to 15 mg QD on 10/18/16; reduce to 10 mg QD starting 10/23/16; reduce further to 50 mg starting 10/27/16. Will d/ c scopolamine patch; continue glycopyrrolate, 10/21/16. Increased secretions off scopolamine? Increase glycopyrrolate from 1 mg TID to 2 mg TID on 10/24/16. Consider reinstatement of scopolamine; favoring glycopyrrolate for better side effect profile. * Decubitus ulcers. Due to xhear per wound nurse. Continue pressure relief and protective dressing. Healing. * Orthostatic hypotension: asymptomatic. Adequate hydration, no BP meds. May improve orthostatic tolerance with continued PT. * Dysphagia with G-tube feeding. 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 * Mild erythema R eye: to use artificial tears Resolved. Scratched L eye ? Seen by ophthalmology 10/27/16: ointment in L eye and tape shut QHS; unable to keep lid closed on his own. No corneal abrasion or ulcer. * Anticoagulation d/w 10/19/16. She is not aware of history of pulmonary embolus. She reports CVA was due to clot in leg that traveled to brain. He had cerebral hemorrhage when first put on anticoagulants; eventually was stable on subcu heparin 5000 U TID. Has been changed to enoxaparin during most recent hospitalization prior to Inpatient Rehabilitation admission. Will request records from [facility] in [place], [place] and [facility] in 07/2015. Continue enoxaparin for now. * History of gastrointestinal bleed. Continue famotidine. * Cerumen accumulation: resolved after Debrox treatment. * Dyslipidemia. Continue atorvastatin. * Constipation. Continue his laxatives as ordered out of the hospital. * History of nausea and vomiting leading to his aspiration pneumonitis. Will continue ondansetron on a p.r.n. basis. Goals include verbal communication for basic needs, augmented communication system for higher level communication, motorized wheelchair for mobility and skin integrity. Expect slow progress and a long stay. Appropriate discharge is likely to SNF nearer to , who lives in [place], and with resources for safe stay. 11/01/16 12:57 Subjective: C/O sweating. Nurse reports he had a change of bedsheets. Denies dyspnea, diarrhea, pelvic pain, flank pain. Objective: Vital Signs Temp Pulse Resp BP Pulse Ox 37.0 C 69 16 119/82 H 95 11/01/16 05:24 11/01/16 05:24 11/01/16 05:24 11/01/16 06:47 11/01/16 05:24 10/31/16 11/01/16 11/02/16 05:59 05:59 05:59 Intake Total 1450 4430 Output Total 4363 6840 Balance -1125 2420 Physical Exam - Physical Exam General Appearance: WD/WN, alert, no apparent distress, obese Respiratory: normal breath sounds, No crackles, No rhonchi, No wheezing Skin: normal color, diaphoresis Neuro/Psych: alert, normal mood/affect ICD10 Worksheet Patient Problems: Problems Problem Status Diagnosed Acute bronchitis Acute Hematemesis Acute Impaired mobility and activities of daily living Acute Constipation Acute Cough Acute DVT (deep venous thrombosis) Acute Decubitus skin ulcer Acute Fall from bed, initial encounter Acute Fever Acute Hypoxia Acute Laceration of forehead Acute Nutrition disorder Acute Pneumonia Acute Respiratory distress Acute Subarachnoid hemorrhage following injury Acute Subdural hemorrhage Acute Tachycardia Acute Tracheostomy complication Acute Vomiting Acute
[2016-11-01 15:06] LABS: COLOR YELLOW; LEUKOCYTE ESTERASE,URINE 2+ (NEGATIVE); NITRITE,URINE NEGATIVE (NEGATIVE)
[2016-11-01 15:12] LABS: BACTERIA 1+ /hpf (NONE SEEN); MUCUS TRACE /lpf (NONE-1+)
[2016-11-01] MEDS: ATORVASTATIN CALCIUM 40 MG TAB TUBE SCH (20:59)
[2016-11-01] MEDS: CIPROFLOXACIN 250 MG TAB PO SCH (20:59)
[2016-11-01] MEDS: MELATONIN 3 MG TAB TUBE SCH (20:59)
[2016-11-01] MEDS: PETROLAT,WHT/MIN OIL/SOD CHL 3.5 GM OPHT.OINT EACHEYE SCH (21:00)
[2016-11-01] MEDS: ALPRAZolam 0.5 MG TAB TUBE SCH (21:03)
[2016-11-02] MEDS: IPRATROPIUM/ALBUTEROL 3 ML DEYVIAL IH SCH ×4 (05:15→23:18)
[2016-11-02] MEDS: ACETYLCYSTEINE 10% 30 ML VIAL IH SCH ×4 (05:15→23:18)
[2016-11-02] MEDS: ENOXAPARIN 40 MG/0.4 ML SYR SC SCH (08:06)
[2016-11-02] MEDS: predniSONE 10 MG TAB TUBE SCH (08:07)
[2016-11-02] MEDS: FAMOTIDINE 20 MG TAB TUBE SCH ×2 (08:07→20:55)
[2016-11-02] MEDS: SERTRALINE HCL 100 MG TAB TUBE SCH (08:07)
[2016-11-02] MEDS: GLYCOPYRROLATE 1 MG TAB TUBE SCH ×3 (08:07→20:55)
[2016-11-02] MEDS: CIPROFLOXACIN 250 MG TAB PO SCH ×2 (12:59→20:55)
--- NOTE | 2016-11-02 13:03 | SOAPPROG ---
SOAP Progress Note Assessment/Plan: Assessment: 56 yo M with history of CVA with hemorrhagic transformation in 2015, aphasia, dysphagia, R hemiparesis, tracheostomy, PEG tube and rader catheter, hospitalized 09/26/16 with aspiration pneumonitis: * Status post hospitalization for aspiration pneumonitis. He appears to be back to his respiratory baseline. Continue tracheostomy care and pulmonary toilet to be provided by rehabilitation nurses. Mucomyst to help clear sputum. 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 Initial FIM 37 on 10/17/16; gain to 40 as of 10/21/16. Safe transfers by Kiera. Max assist of 2 for bed mobility. BUE ataxia; has control of gross movements with LUE. Continue Physical and Occupational Therapy to improve mobility and activities of daily living towards return to a [facility] facility at a lower level of burden of care. * Dysarthria and inability to speak. Using Passey-[place] valve with SURFACE GRINDER TENDER; able to speak a few words 10/19/16; has potential for basic verbal communication. RT instructed nurse on manometry to fill trach cuff appropriately. Evaluation initiated re alternative communication devices; issues include BUE ataxia and lack of seated balance. SURFACE GRINDER TENDER working with OT re positioning and UE functional issues. * Diaphoresis: UA C/W UTI; diaphoresis resolved after beginning ciprofloxacin . * Respiratory secretions. Much improved with n-acetylcysteine nebulizer starting 10/17/16. Prednisone Rx d/w craft superintendent Dr. Marie 10/17/16: suggests taper by 5 mg Q 3 days. Reduced from 20 mg QD to 15 mg QD on 10/18/16; reduce to 10 mg QD starting 10/23/16; reduce further to 50 mg starting 10/27/16. Will d/ c scopolamine patch; continue glycopyrrolate, 10/21/16. Increased secretions off scopolamine? Increase glycopyrrolate from 1 mg TID to 2 mg TID on 10/24/16. Consider reinstatement of scopolamine; favoring glycopyrrolate for better side effect profile. * Decubitus ulcers. Due to shear per wound nurse. Continue pressure relief and protective dressing. Healing. * Orthostatic hypotension: asymptomatic. Adequate hydration, no BP meds. May improve orthostatic tolerance with continued PT. * Dysphagia with G-tube feeding. Per rehabilitation nursing and glass handler. * Mild erythema R eye: to use artificial tears Resolved. Scratched L eye ? Seen by ophthalmology 10/27/16: ointment in L eye and tape shut QHS; unable to keep lid closed on his own. No corneal abrasion or ulcer. * Anticoagulation d/w 10/19/16. She is not aware of history of pulmonary embolus. She reports CVA was due to clot in leg that traveled to brain. He had cerebral hemorrhage when first put on anticoagulants; eventually was stable on subcu heparin 5000 U TID. Has been changed to enoxaparin during most recent hospitalization prior to Inpatient Rehabilitation admission. Will request records from [facility] in [place], [place] and [facility] in 07/2015. Continue enoxaparin for now. * History of gastrointestinal bleed. Continue famotidine. * Cerumen accumulation: resolved after Debrox treatment. * Dyslipidemia. Continue atorvastatin. * Constipation. Continue his laxatives as ordered out of the hospital. * History of nausea and vomiting leading to his aspiration pneumonitis. Will continue ondansetron on a p.r.n. basis. Goals include verbal communication for basic needs, augmented communication system for higher level communication, motorized wheelchair for mobility and skin integrity. Expect slow progress and a long stay. Appropriate discharge is likely to SNF nearer to , who lives in [place], and with resources for safe stay. 11/02/16 13:00 Subjective: No complaints. Denies sweats overnight. Objective: Vital Signs Temp Pulse Resp BP Pulse Ox 36.5 C 64 18 121/77 H 96 11/02/16 05:31 11/02/16 05:31 11/02/16 05:31 11/02/16 05:31 11/02/16 05:31 11/01/16 11/02/16 11/03/16 05:59 05:59 05:59 Intake Total 3460 1590 Output Total 1040 1750 Balance 2420 -160 Physical Exam - Physical Exam General Appearance: WD/WN, alert, no apparent distress Respiratory: normal breath sounds, No crackles, No rhonchi, No wheezing Cardiac/Chest: regular rate, rhythm, No edema Skin: normal color, warm/dry Neuro/Psych: alert, normal mood/affect, motor weakness (In PT gym working on torso control and midline awareness sitting up, needing considerable assistance. ) ICD10 Worksheet Patient Problems: Problems Problem Status Diagnosed Acute bronchitis Acute Hematemesis Acute Impaired mobility and activities of daily living Acute Constipation Acute Cough Acute DVT (deep venous thrombosis) Acute Decubitus skin ulcer Acute Fall from bed, initial encounter Acute Fever Acute Hypoxia Acute Laceration of forehead Acute Nutrition disorder Acute Pneumonia Acute Respiratory distress Acute Subarachnoid hemorrhage following injury Acute Subdural hemorrhage Acute Tachycardia Acute Tracheostomy complication Acute Vomiting Acute
[2016-11-02] MEDS: ALPRAZolam 0.5 MG TAB TUBE SCH (20:54)
[2016-11-02] MEDS: MELATONIN 3 MG TAB TUBE SCH (20:55)
[2016-11-02] MEDS: PETROLAT,WHT/MIN OIL/SOD CHL 3.5 GM OPHT.OINT EACHEYE SCH (20:55)
[2016-11-02] MEDS: ATORVASTATIN CALCIUM 40 MG TAB TUBE SCH (20:55)
[2016-11-03] MEDS: IPRATROPIUM/ALBUTEROL 3 ML DEYVIAL IH SCH ×4 (05:51→23:56)
[2016-11-03] MEDS: ACETYLCYSTEINE 10% 30 ML VIAL IH SCH ×4 (05:51→23:57)
[2016-11-03] MEDS: ENOXAPARIN 40 MG/0.4 ML SYR SC SCH (08:12)
[2016-11-03] MEDS: predniSONE 10 MG TAB TUBE SCH (08:13)
[2016-11-03] MEDS: GLYCOPYRROLATE 1 MG TAB TUBE SCH ×3 (08:13→20:50)
[2016-11-03] MEDS: SERTRALINE HCL 100 MG TAB TUBE SCH (08:13)
[2016-11-03] MEDS: FAMOTIDINE 20 MG TAB TUBE SCH ×2 (08:13→20:50)
[2016-11-03] MEDS: CIPROFLOXACIN 250 MG TAB PO SCH (09:16)
[2016-11-03] MEDS: TEARS/DEXTRAN 70/HYPROMELLOSE 15 ML OPHT.BTL EACHEYE PRN (09:27)
--- NOTE | 2016-11-03 11:14 | SOAPPROG ---
SOAP Progress Note Assessment/Plan: Assessment: 56 yo M with history of CVA with hemorrhagic transformation in 2015, aphasia, dysphagia, R hemiparesis, tracheostomy, PEG tube and rader catheter, hospitalized 09/26/16 with aspiration pneumonitis: * Status post hospitalization for aspiration pneumonitis. He appears to be back to his respiratory baseline. Continue tracheostomy care and pulmonary toilet to be provided by rehabilitation nurses. Mucomyst to help clear sputum. 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 Initial FIM 37 on 10/17/16; gain to 40 as of 10/21/16. Safe transfers by Kiera. Max assist of 2 for bed mobility. BUE ataxia; has control of gross movements with LUE. Continue Physical and Occupational Therapy to improve mobility and activities of daily living towards return to a residential facility at a lower level of burden of care. New power wheelchair today 11/03/16. * Dysarthria and inability to speak. Using Passey-[place] valve with TESTER SOUND; able to speak a few words 10/19/16; has potential for basic verbal communication. RT instructed nurse on manometry to fill trach cuff appropriately. Evaluation initiated re alternative communication devices; issues include BUE ataxia and lack of seated balance. TESTER SOUND working with OT re positioning and UE functional issues. * Diaphoresis: UA C/W UTI; diaphoresis improved after beginning ciprofloxacin . Prelim Cx with GNR; await C & S. * Respiratory secretions. Much improved with n-acetylcysteine nebulizer starting 10/17/16. Prednisone Rx d/w clinical fellow Dr. Marie 10/17/16: suggests taper by 5 mg Q 3 days. Reduced from 20 mg QD to 15 mg QD on 10/18/16; reduce to 10 mg QD starting 10/23/16; reduce further to 50 mg starting 10/27/16. Will d/ c scopolamine patch; continue glycopyrrolate, 10/21/16. Increased secretions off scopolamine? Increase glycopyrrolate from 1 mg TID to 2 mg TID on 10/24/16. Consider reinstatement of scopolamine; favoring glycopyrrolate for better side effect profile. * Decubitus ulcers. Due to shear per wound nurse. Continue pressure relief and protective dressing. Healing. * Orthostatic hypotension: asymptomatic. Adequate hydration, no BP meds. May improve orthostatic tolerance with continued PT. * Dysphagia with G-tube feeding. Per rehabilitation nursing and equipment coordinator. * Mild erythema R eye: to use artificial tears Resolved. Scratched L eye ? Seen by ophthalmology 10/27/16: ointment in L eye and tape shut QHS; unable to keep lid closed on his own. No corneal abrasion or ulcer. * Anticoagulation d/w 10/19/16. She is not aware of history of pulmonary embolus. She reports CVA was due to clot in leg that traveled to brain. He had cerebral hemorrhage when first put on anticoagulants; eventually was stable on subcu heparin 5000 U TID. Has been changed to enoxaparin during most recent hospitalization prior to Inpatient Rehabilitation admission. Will request records from [facility] in [place], [place] and [facility] in 07/2015. Continue enoxaparin for now. * History of gastrointestinal bleed. Continue famotidine. * Cerumen accumulation: resolved after Debrox treatment. * Dyslipidemia. Continue atorvastatin. * Constipation. Continue his laxatives as ordered out of the hospital. * History of nausea and vomiting leading to his aspiration pneumonitis. Will continue ondansetron on a p.r.n. basis. Goals include verbal communication for basic needs, augmented communication system for higher level communication, motorized wheelchair for mobility and skin integrity. Expect slow progress and a long stay. Appropriate discharge is likely to SNF nearer to , who lives in [place], and with resources for safe stay. 11/03/16 11:11 Subjective: No complaints. Slept well. No cough/dyspnea, f/c. Still with sweats, though improved. Objective: Vital Signs Temp Pulse Resp BP Pulse Ox 37.1 C 68 16 125/78 H 97 11/03/16 07:46 11/03/16 07:46 11/03/16 07:46 11/03/16 07:46 11/03/16 07:46 11/02/16 11/03/16 11/04/16 05:59 05:59 05:59 Intake Total 1590 1600 Output Total 1750 1200 Balance -160 400 Physical Exam - Physical Exam General Appearance: WD/WN, alert, no apparent distress Respiratory: normal breath sounds, No crackles, No rhonchi, No wheezing Cardiac/Chest: regular rate, rhythm, No edema Skin: normal color, diaphoresis Neuro/Psych: alert, normal mood/affect, motor weakness (Observed Kiera transfer to new power wheelchair.) ICD10 Worksheet Patient Problems: Problems Problem Status Diagnosed Acute bronchitis Acute Hematemesis Acute Impaired mobility and activities of daily living Acute Constipation Acute Cough Acute DVT (deep venous thrombosis) Acute Decubitus skin ulcer Acute Fall from bed, initial encounter Acute Fever Acute Hypoxia Acute Laceration of forehead Acute Nutrition disorder Acute Pneumonia Acute Respiratory distress Acute Subarachnoid hemorrhage following injury Acute Subdural hemorrhage Acute Tachycardia Acute Tracheostomy complication Acute Vomiting Acute
[2016-11-03] MEDS: MELATONIN 3 MG TAB TUBE SCH (20:50)
[2016-11-03] MEDS: ALPRAZolam 0.5 MG TAB TUBE SCH (20:50)
[2016-11-03] MEDS: ATORVASTATIN CALCIUM 40 MG TAB TUBE SCH (20:50)
[2016-11-03] MEDS: PETROLAT,WHT/MIN OIL/SOD CHL 3.5 GM OPHT.OINT EACHEYE SCH (20:51)
[2016-11-04] MEDS: IPRATROPIUM/ALBUTEROL 3 ML DEYVIAL IH SCH ×3 (05:47→17:11)
[2016-11-04] MEDS: ACETYLCYSTEINE 10% 30 ML VIAL IH SCH ×3 (05:47→17:11)
[2016-11-04] MEDS: GLYCOPYRROLATE 1 MG TAB TUBE SCH ×3 (08:10→21:00)
[2016-11-04] MEDS: SERTRALINE HCL 100 MG TAB TUBE SCH (08:11)
[2016-11-04] MEDS: FAMOTIDINE 20 MG TAB TUBE SCH ×2 (08:11→20:59)
[2016-11-04] MEDS: ENOXAPARIN 40 MG/0.4 ML SYR SC SCH (08:11)
[2016-11-04] MEDS: predniSONE 10 MG TAB TUBE SCH (08:11)
[2016-11-04] MEDS: HYDROGEN PEROXIDE 236 ML BOTTLE TP PRN ×2 (08:12→21:00)
[2016-11-04] MEDS ORDERED: guaiFENesin 200 MG/10 ML UDCUP PO PRN (10:37)
--- NOTE | 2016-11-04 12:02 | SOAPPROG ---
SOAP Progress Note Assessment/Plan: Assessment: 56 yo M with history of CVA with hemorrhagic transformation in 2015, aphasia, dysphagia, R hemiparesis, tracheostomy, PEG tube and rader catheter, hospitalized 09/26/16 with aspiration pneumonitis: * Status post hospitalization for aspiration pneumonitis. He appears to be back to his respiratory baseline. Continue tracheostomy care and pulmonary toilet to be provided by rehabilitation nurses. Mucomyst to help clear sputum. 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 Initial FIM 37 on 10/17/16; gain to 40 as of 10/21/16. Safe transfers by Kiera. Max assist of 2 for bed mobility. BUE ataxia; has control of gross movements with LUE. Continue Physical and Occupational Therapy to improve mobility and activities of daily living towards return to a nursing home facility at a lower level of burden of care. New power wheelchair today 11/03/16. * Dysarthria and inability to speak. Using Passey-Jeanna valve with DIGITAL PRINT OPERATOR; able to speak a few words 10/19/16; has potential for basic verbal communication. RT instructed nurse on manometry to fill trach cuff appropriately. Evaluation initiated re alternative communication devices; issues include BUE ataxia and lack of seated balance. DIGITAL PRINT OPERATOR working with OT re positioning and UE functional issues. * Diaphoresis: UA C/W UTI; diaphoresis improved after beginning ciprofloxacin . Prelim Cx with GNR; await C & S. * Respiratory secretions. Much improved with n-acetylcysteine nebulizer starting 10/17/16. Prednisone Rx d/w director social welfare Dr. Marie 10/17/16: suggests taper by 5 mg Q 3 days. Reduced from 20 mg QD to 15 mg QD on 10/18/16; reduce to 10 mg QD starting 10/23/16; reduce further to 50 mg starting 10/27/16. Will d/ c scopolamine patch; continue glycopyrrolate, 10/21/16. Increased secretions off scopolamine? Increase glycopyrrolate from 1 mg TID to 2 mg TID on 10/24/16. Consider reinstatement of scopolamine; favoring glycopyrrolate for better side effect profile. * Decubitus ulcers. Due to shear per wound nurse. Continue pressure relief and protective dressing. Healing. * Orthostatic hypotension: asymptomatic. Adequate hydration, no BP meds. May improve orthostatic tolerance with continued PT. * Dysphagia with G-tube feeding. Per rehabilitation nursing and channel process plant operator. * Mild erythema R eye: to use artificial tears Resolved. Scratched L eye ? Seen by ophthalmology 10/27/16: ointment in L eye and tape shut QHS; unable to keep lid closed on his own. No corneal abrasion or ulcer. * Anticoagulation d/w 10/19/16. She is not aware of history of pulmonary embolus. She reports CVA was due to clot in leg that traveled to brain. He had cerebral hemorrhage when first put on anticoagulants; eventually was stable on subcu heparin 5000 U TID. Has been changed to enoxaparin during most recent hospitalization prior to Inpatient Rehabilitation admission. Will request records from [facility] in [place], [place] and [facility] in 07/2015. Continue enoxaparin for now. * History of gastrointestinal bleed. Continue famotidine. * Cerumen accumulation: resolved after Debrox treatment. * Dyslipidemia. Continue atorvastatin. * Constipation. Continue his laxatives as ordered out of the hospital. * History of nausea and vomiting leading to his aspiration pneumonitis. Will continue ondansetron on a p.r.n. basis. Goals include verbal communication for basic needs, augmented communication system for higher level communication, motorized wheelchair for mobility and skin integrity. Expect slow progress and a long stay. Appropriate discharge is likely to SNF nearer to , who lives in [place], and with resources for safe stay. 11/03/16 11:11 Objective: Vital Signs Temp Pulse Resp BP Pulse Ox 36.4 C 65 16 124/72 H 94 11/04/16 07:32 11/04/16 07:32 11/04/16 07:32 11/04/16 07:32 11/04/16 07:32 Microbiology 11/01/16 15:19 Urine Culture - Final Urine,Clean Catch Proteus Vulgaris 11/03/16 11/04/16 11/05/16 05:59 05:59 05:59 Intake Total 1600 1250 Output Total 1200 550 Balance 400 700 - Time Spent With Patient Time Spent With Patient: Greater than 35 minutes floor time today, including more than 50% of time incoordination of care during staffing meeting, and counseling patient. ICD10 Worksheet Patient Problems: Problems Problem Status Diagnosed Acute bronchitis Acute Hematemesis Acute Impaired mobility and activities of daily living Acute Constipation Acute Cough Acute DVT (deep venous thrombosis) Acute Decubitus skin ulcer Acute Fall from bed, initial encounter Acute Fever Acute Hypoxia Acute Laceration of forehead Acute Nutrition disorder Acute Pneumonia Acute Respiratory distress Acute Subarachnoid hemorrhage following injury Acute Subdural hemorrhage Acute Tachycardia Acute Tracheostomy complication Acute Vomiting Acute
[2016-11-04] MEDS: ALPRAZolam 0.5 MG TAB TUBE SCH (19:52)
[2016-11-04] MEDS: ATORVASTATIN CALCIUM 40 MG TAB TUBE SCH (20:59)
[2016-11-04] MEDS: MELATONIN 3 MG TAB TUBE SCH (20:59)
[2016-11-04] MEDS: PETROLAT,WHT/MIN OIL/SOD CHL 3.5 GM OPHT.OINT EACHEYE SCH (21:00)
[2016-11-05] MEDS: IPRATROPIUM/ALBUTEROL 3 ML DEYVIAL IH SCH ×4 (00:01→17:53)
[2016-11-05] MEDS: ACETYLCYSTEINE 10% 30 ML VIAL IH SCH ×4 (00:01→17:53)
[2016-11-05] MEDS: SERTRALINE HCL 100 MG TAB TUBE SCH (08:18)
[2016-11-05] MEDS: FAMOTIDINE 20 MG TAB TUBE SCH ×2 (08:19→20:20)
[2016-11-05] MEDS: ENOXAPARIN 40 MG/0.4 ML SYR SC SCH (08:19)
[2016-11-05] MEDS: predniSONE 10 MG TAB TUBE SCH (08:19)
[2016-11-05] MEDS: GLYCOPYRROLATE 1 MG TAB TUBE SCH ×3 (08:19→21:51)
--- NOTE | 2016-11-05 10:43 | SOAPPROG ---
SOAP Progress Note Assessment/Plan: Assessment: 56 yo M with history of CVA with hemorrhagic transformation in 2015, aphasia, dysphagia, R hemiparesis, tracheostomy, PEG tube and rader catheter, hospitalized 09/26/16 with aspiration pneumonitis: * Status post hospitalization for aspiration pneumonitis. He appears to be back to his respiratory baseline. He will require tracheostomy care and pulmonary toilet to be provided by rehabilitation nurses. Discussed his care with Speech therapy. He may benefit from capping the trach for increasing periods of time and downsizing trach tube. This along with repetitive swallong with ice chip may help re-train is pharyngeal muscles for improved swallowing. * Sacral decub- may benefit from placement on airbed * Debility as a late sequela of a cerebrovascular accident and intracranial hemorrhage. To be assessed by Physical and Occupational Therapy to improve mobility and activities of daily living towards return to a retirement facility at a lower level of burden of care. * Dysphagia and inability to speak. Discussed case with speech therapist who would like Pulmonary input as to how much trach cuff can be deflated so that speaking valve can be placed for speech training. Would also like to see ST begin trial of E-Stim to pharyngeal muscles and bedside swallowing eval for possible PO intake. Speech Therapy will address his communication issues with a goal of optimizing his ability to make his needs known. * Pulmonary rehab- Physical therapy to work with patient for incentive spirometer use, diaphragm and accessory respiratory muscle strengthening. * Dysphagia with G-tube feeding. To be managed by rehabilitation nursing. * Mild erythema R eye: to use artificial tears.Observe for resolution. * History of pulmonary embolus. He will continue on enoxaparin at a preventive dose. It is unclear to what extent he remains at risk as I do not have history regarding how long he has been hemiparetic and the circumstances under which the pulmonary embolus happened in the past. * History of gastrointestinal bleed. Will continue famotidine. * Dyslipidemia. Will continue atorvastatin. * Constipation. Will continue his laxatives as ordered out of the hospital. * History of nausea and vomiting leading to his aspiration pneumonitis. Will continue ondansetron on a p.r.n. basis. Plan: 10/15/16 10:12 10/16/16 12:15 11/05/16 10:49 Subjective: No complaints per fingerboard. Nursing reports no new problems. Objective: Vital Signs Temp Pulse Resp BP Pulse Ox 37.1 C 63 16 119/77 97 11/05/16 06:17 11/05/16 06:17 11/05/16 06:17 11/05/16 06:17 11/05/16 06:17 11/04/16 11/05/16 11/06/16 05:59 05:59 05:59 Intake Total 1250 1250 1340 Output Total 550 1550 Balance 700 -300 1340 Physical Exam - Physical Exam General Appearance: alert, no apparent distress EENT: other (Trach Tube in place) Neck: full range of motion, normal inspection Respiratory: lungs clear Cardiac/Chest: No edema, No JVD Abdomen: normal bowel sounds, non-tender Male Genitalia: other (Rader catheter in place) Neuro/Psych: motor weakness (Quadriparesis. 2+3-/5 right and left iliopsoas, quadriceps and HS. 3-/5 right and left biceps , wrist extensors, 2/5 finger extensors), speech abnormalities (Trach tube in place) ICD10 Worksheet Patient Problems: Problems Problem Status Diagnosed Acute bronchitis Acute Hematemesis Acute Impaired mobility and activities of daily living Acute Constipation Acute Cough Acute DVT (deep venous thrombosis) Acute Decubitus skin ulcer Acute Fall from bed, initial encounter Acute Fever Acute Hypoxia Acute Laceration of forehead Acute Nutrition disorder Acute Pneumonia Acute Respiratory distress Acute Subarachnoid hemorrhage following injury Acute Subdural hemorrhage Acute Tachycardia Acute Tracheostomy complication Acute Vomiting Acute
[2016-11-05] MEDS: ATORVASTATIN CALCIUM 40 MG TAB TUBE SCH (20:20)
[2016-11-05] MEDS: ALPRAZolam 0.5 MG TAB TUBE SCH (20:20)
[2016-11-05] MEDS: MELATONIN 3 MG TAB TUBE SCH (20:20)
[2016-11-05] MEDS: HYDROGEN PEROXIDE 236 ML BOTTLE TP PRN (20:23)
[2016-11-05] MEDS: PETROLAT,WHT/MIN OIL/SOD CHL 3.5 GM OPHT.OINT EACHEYE SCH (21:51)
[2016-11-06] MEDS: ACETYLCYSTEINE 10% 30 ML VIAL IH SCH ×4 (00:03→17:19)
[2016-11-06] MEDS: IPRATROPIUM/ALBUTEROL 3 ML DEYVIAL IH SCH ×4 (00:03→17:19)
[2016-11-06] MEDS: GLYCOPYRROLATE 1 MG TAB TUBE SCH ×3 (08:01→20:09)
[2016-11-06] MEDS: ENOXAPARIN 40 MG/0.4 ML SYR SC SCH (08:02)
[2016-11-06] MEDS: SERTRALINE HCL 100 MG TAB TUBE SCH (08:02)
[2016-11-06] MEDS: predniSONE 10 MG TAB TUBE SCH (08:02)
[2016-11-06] MEDS: FAMOTIDINE 20 MG TAB TUBE SCH ×2 (08:02→20:09)
--- NOTE | 2016-11-06 10:15 | SOAPPROG ---
SOAP Progress Note Assessment/Plan: Assessment: 56 yo M with history of CVA with hemorrhagic transformation in 2015, aphasia, dysphagia, R hemiparesis, tracheostomy, PEG tube and rader catheter, hospitalized 09/26/16 with aspiration pneumonitis: * Status post hospitalization for aspiration pneumonitis. He appears to be back to his respiratory baseline. He will require tracheostomy care and pulmonary toilet to be provided by rehabilitation nurses. Discussed his care with Speech therapy. He may benefit from capping the trach for increasing periods of time and downsizing trach tube. This along with repetitive swallowing with ice chip may help re-train is pharyngeal muscles for improved swallowing. * Sacral decub- may benefit from placement on airbed * Debility as a late sequela of a cerebrovascular accident and intracranial hemorrhage. To be assessed by Physical and Occupational Therapy to improve mobility and activities of daily living towards return to a long-term facility at a lower level of burden of care. * Dysphagia and inability to speak. Discussed case with speech therapist who would like Pulmonary input as to how much trach cuff can be deflated so that speaking valve can be placed for speech training. Would also like to see ST begin trial of E-Stim to pharyngeal muscles and bedside swallowing eval for possible PO intake. Speech Therapy will address his communication issues with a goal of optimizing his ability to make his needs known. * Pulmonary rehab- Physical therapy to work with patient for incentive spirometer use, diaphragm and accessory respiratory muscle strengthening. * Dysphagia with G-tube feeding. To be managed by rehabilitation nursing. * Mild erythema R eye: to use artificial tears.Observe for resolution. * History of pulmonary embolus. He will continue on enoxaparin at a preventive dose. It is unclear to what extent he remains at risk as I do not have history regarding how long he has been hemiparetic and the circumstances under which the pulmonary embolus happened in the past. * History of gastrointestinal bleed. Will continue famotidine. * Dyslipidemia. Will continue atorvastatin. * Constipation. Will continue his laxatives as ordered out of the hospital. * History of nausea and vomiting leading to his aspiration pneumonitis. Will continue ondansetron on a p.r.n. basis. Plan: 10/15/16 10:12 10/16/16 12:15 11/05/16 10:49 11/06/16 10:14 Subjective: No problems reported by nursing staff. Pt refused finger board. Objective: Vital Signs Temp Pulse Resp BP Pulse Ox 36.6 C 55 L 16 131/85 H 97 11/06/16 07:36 11/06/16 07:36 11/06/16 07:36 11/06/16 07:36 11/06/16 07:36 11/05/16 11/06/16 11/07/16 05:59 05:59 05:59 Intake Total 1250 2790 Output Total 1550 1050 Balance -300 1740 Physical Exam - Physical Exam General Appearance: WD/WN, alert, no apparent distress EENT: other (Trach site without erythema or swelling) Neck: full range of motion Respiratory: rhonchi, No stridor, No wheezing Cardiac/Chest: No edema, No JVD Abdomen: normal bowel sounds, non-tender, soft, other (No suprapubic tenderness) Skin: normal color, warm/dry Extremities: No pedal edema, No calf tenderness, No Anmol's sign ICD10 Worksheet Patient Problems: Problems Problem Status Diagnosed Acute bronchitis Acute Hematemesis Acute Impaired mobility and activities of daily living Acute Constipation Acute Cough Acute DVT (deep venous thrombosis) Acute Decubitus skin ulcer Acute Fall from bed, initial encounter Acute Fever Acute Hypoxia Acute Laceration of forehead Acute Nutrition disorder Acute Pneumonia Acute Respiratory distress Acute Subarachnoid hemorrhage following injury Acute Subdural hemorrhage Acute Tachycardia Acute Tracheostomy complication Acute Vomiting Acute
[2016-11-06] MEDS: ATORVASTATIN CALCIUM 40 MG TAB TUBE SCH (20:07)
[2016-11-06] MEDS: MELATONIN 3 MG TAB TUBE SCH (20:09)
[2016-11-06] MEDS: ALPRAZolam 0.5 MG TAB TUBE SCH (20:09)
[2016-11-06] MEDS: PETROLAT,WHT/MIN OIL/SOD CHL 3.5 GM OPHT.OINT EACHEYE SCH (20:11)
[2016-11-07] MEDS: ACETYLCYSTEINE 10% 30 ML VIAL IH SCH ×4 (00:23→17:03)
[2016-11-07] MEDS: IPRATROPIUM/ALBUTEROL 3 ML DEYVIAL IH SCH ×4 (00:23→17:03)
[2016-11-07] MEDS: BISACODYL 10 MG SUPP PR SCH (05:55)
[2016-11-07] MEDS: FAMOTIDINE 20 MG TAB TUBE SCH ×2 (09:30→19:51)
[2016-11-07] MEDS: ENOXAPARIN 40 MG/0.4 ML SYR SC SCH (09:30)
[2016-11-07] MEDS: TEARS/DEXTRAN 70/HYPROMELLOSE 15 ML OPHT.BTL EACHEYE PRN (09:30)
[2016-11-07] MEDS: GLYCOPYRROLATE 1 MG TAB TUBE SCH ×3 (09:31→22:11)
[2016-11-07] MEDS: SERTRALINE HCL 100 MG TAB TUBE SCH (09:31)
[2016-11-07] MEDS: predniSONE 10 MG TAB TUBE SCH (09:31)
[2016-11-07] MEDS: ACETAMINOPHEN 650 MG/20.3 ML UDCUP TUBE PRN (09:32)
--- NOTE | 2016-11-07 13:46 | SOAPPROG ---
SOAP Progress Note Assessment/Plan: Assessment: 56 yo M with history of CVA with hemorrhagic transformation in 2015, aphasia, dysphagia, R hemiparesis, tracheostomy, PEG tube and rader catheter, hospitalized 09/26/16 with aspiration pneumonitis: * Status post hospitalization for aspiration pneumonitis. He appears to be back to his respiratory baseline. He will require tracheostomy care and pulmonary toilet to be provided by rehabilitation nurses. Swallow training, pulmonary rehab. * Sacral pressure ulcer- work with nursing to minimize shear by managing positioning and avoiding high shear sitting positions. 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 Physical and Occupational Therapy to improve mobility and activities of daily living towards return to a halfway facility at a lower level of burden of care. * Dysphagia and inability to speak. CORRESPONDENCE ANALYST trial of E-Stim to pharyngeal muscles and bedside swallowing eval for possible PO intake. Speech Therapy will address his communication issues with a goal of optimizing his ability to make his needs known. Continue with cuffed trach for now with passy archie valve, consider future downsizing to cuffless trach and capping, but prefer to see better management of secretions before that. * Pulmonary rehab- Physical therapy to work with patient for incentive spirometer use, diaphragm and accessory respiratory muscle strengthening. * Dysphagia with G-tube feeding. To be managed by rehabilitation nursing. * Mild erythema R eye: to use artificial tears.Observe for resolution. * History of pulmonary embolus. He will continue on enoxaparin at a preventive dose. It is unclear to what extent he remains at risk as I do not have history regarding how long he has been hemiparetic and the circumstances under which the pulmonary embolus happened in the past. * History of gastrointestinal bleed. Will continue famotidine. * Dyslipidemia. Will continue atorvastatin. * Constipation. Will continue his laxatives as ordered out of the hospital. * History of nausea and vomiting leading to his aspiration pneumonitis. Will continue ondansetron on a p.r.n. basis. Subjective: CC: respiratory insufficiency and secretions No acute events overnight. Doing well in therapies. Pt has goal to eventually DC the trach, discussed at bedside. Sleeping well, no pain. Continues to have secretions requiring suction through trach, but at decreasing intervals and decreasing volumes. Currently with cuffed trach and passy archie valve for communication, which is improving. Pt denies respiratory distress. Objective: Vital Signs Temp Pulse Resp BP Pulse Ox 37.0 C 64 16 120/85 H 95 11/07/16 06:45 11/07/16 06:45 11/07/16 06:45 11/07/16 06:45 11/07/16 10:30 11/06/16 11/07/16 11/08/16 05:59 05:59 05:59 Intake Total 2790 2745 Output Total 1050 1700 250 Balance 1740 1045 -250 - Pending Discharge Pending Discharge Within 24 Hours: No Pending Discharge Within 48 Hours: No Physical Exam - Physical Exam General Appearance: alert, no apparent distress EENT: No scleral icterus (R), No scleral icterus (L) Neck: other (Cuffed trach with PM valve, on TC O2) Respiratory: normal breath sounds, rhonchi, No respiratory distress, No accessory muscle use Cardiac/Chest: regular rate, rhythm, No bradycardia, No tachycardia Abdomen: normal bowel sounds, non-tender, soft Skin: normal color, warm/dry, No cyanosis Extremities: No pedal edema, No swelling Neuro/Psych: alert, normal mood/affect, other (Communicating via board. ) ICD10 Worksheet Patient Problems: Problems Problem Status Diagnosed Acute bronchitis Acute Hematemesis Acute Impaired mobility and activities of daily living Acute Constipation Acute Cough Acute DVT (deep venous thrombosis) Acute Decubitus skin ulcer Acute Fall from bed, initial encounter Acute Fever Acute Hypoxia Acute Laceration of forehead Acute Nutrition disorder Acute Pneumonia Acute Respiratory distress Acute Subarachnoid hemorrhage following injury Acute Subdural hemorrhage Acute Tachycardia Acute Tracheostomy complication Acute Vomiting Acute - ICD10 Problem Qualifiers (1) Impaired mobility and activities of daily living
[2016-11-07] MEDS: ATORVASTATIN CALCIUM 40 MG TAB TUBE SCH (19:51)
[2016-11-07] MEDS: MELATONIN 3 MG TAB TUBE SCH (19:51)
[2016-11-07] MEDS: ALPRAZolam 0.5 MG TAB TUBE SCH (19:51)
[2016-11-07] MEDS: PETROLAT,WHT/MIN OIL/SOD CHL 3.5 GM OPHT.OINT EACHEYE SCH (22:12)
[2016-11-08] MEDS: ACETYLCYSTEINE 10% 30 ML VIAL IH SCH ×5 (00:03→23:50)
[2016-11-08] MEDS: IPRATROPIUM/ALBUTEROL 3 ML DEYVIAL IH SCH ×5 (00:03→23:51)
[2016-11-08] MEDS: FAMOTIDINE 20 MG TAB TUBE SCH ×2 (08:41→19:38)
[2016-11-08] MEDS: ENOXAPARIN 40 MG/0.4 ML SYR SC SCH (08:41)
[2016-11-08] MEDS: SERTRALINE HCL 100 MG TAB TUBE SCH (08:42)
[2016-11-08] MEDS: predniSONE 10 MG TAB TUBE SCH (08:42)
[2016-11-08] MEDS: GLYCOPYRROLATE 1 MG TAB TUBE SCH ×3 (08:42→21:25)
[2016-11-08] MEDS: ACETAMINOPHEN 650 MG/20.3 ML UDCUP TUBE PRN (08:43)
[2016-11-08] MEDS: POLYETHYLENE GLYCOL 3350 17 GM PKT TUBE PRN (08:43)
[2016-11-08] MEDS: TEARS/DEXTRAN 70/HYPROMELLOSE 15 ML OPHT.BTL EACHEYE PRN ×2 (08:44→12:39)
--- NOTE | 2016-11-08 11:27 | SOAPPROG ---
SOAP Progress Note Assessment/Plan: Assessment: 56 yo M with history of CVA with hemorrhagic transformation in 2015, aphasia, dysphagia, R hemiparesis, tracheostomy, PEG tube and rader catheter, hospitalized 09/26/16 with aspiration pneumonitis: 11/08/2016 he is doing well overall, working with RT to determine if trach change is needed. * Status post hospitalization for aspiration pneumonitis. He appears to be back to his respiratory baseline. He will require tracheostomy care and pulmonary toilet to be provided by rehabilitation nurses. Swallow training, pulmonary rehab. * Sacral pressure ulcer- work with nursing to minimize shear by managing positioning and avoiding high shear sitting positions. 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 Physical and Occupational Therapy to improve mobility and activities of daily living towards return to a care home facility at a lower level of burden of care. * Dysphagia and inability to speak. ROLL FORGER trial of E-Stim to pharyngeal muscles and bedside swallowing eval for possible PO intake. Speech Therapy will address his communication issues with a goal of optimizing his ability to make his needs known. Continue with cuffed trach for now with passy archie valve (has size 7 portex, fenestrated and cuffed), consider future downsizing to cuffless trach and capping, but prefer to see better management of secretions before that. His last trial of cuff-down overnight resulted in increased secretions. * Pulmonary rehab- Physical therapy to work with patient for incentive spirometer use, diaphragm and accessory respiratory muscle strengthening. * Dysphagia with G-tube feeding. To be managed by rehabilitation nursing. * Mild erythema R eye: to use artificial tears.Observe for resolution. * History of pulmonary embolus. He will continue on enoxaparin at a preventive dose. It is unclear to what extent he remains at risk as I do not have history regarding how long he has been hemiparetic and the circumstances under which the pulmonary embolus happened in the past. * History of gastrointestinal bleed. Will continue famotidine. * Dyslipidemia. Will continue atorvastatin. * Constipation. Will continue his laxatives as ordered out of the hospital. * History of nausea and vomiting leading to his aspiration pneumonitis. Will continue ondansetron on a p.r.n. basis. 11/08/16 11:21 Subjective: CC; trach management No acute events overnight. Pt had increased secretions with last cuff down trial overnight, so cuff has been up at night for the past few weeks. Trach specs from ROLL FORGER, included in A/P below. Pt breathing well, sleeping well, denies problems with either, denies pain or discomfort, no questions via board. May be discharging to SNF this week, he is aware. Family not at bedside. Objective: Vital Signs Temp Pulse Resp BP Pulse Ox 37.1 C 65 16 132/84 H 92 11/08/16 07:29 11/08/16 07:29 11/08/16 07:29 11/08/16 07:29 11/08/16 10:30 11/07/16 11/08/16 11/09/16 05:59 05:59 05:59 Intake Total 2745 1440 150 Output Total 1700 1150 Balance 1045 290 150 Physical Exam - Physical Exam General Appearance: alert, no apparent distress EENT: other (disconjugate), No scleral icterus (R), No scleral icterus (L) Neck: No full range of motion (limited head turn, trach) Respiratory: rhonchi, No respiratory distress, No accessory muscle use Cardiac/Chest: normal peripheral pulses, regular rate, rhythm Abdomen: normal bowel sounds, non-tender, soft Skin: normal color, warm/dry Neuro/Psych: alert, normal mood/affect, other (motor ataxia of upper limbs and voice. ) ICD10 Worksheet Patient Problems: Problems Problem Status Onset Impaired mobility and activities of daily living Acute Acute bronchitis Acute Constipation Acute Cough Acute DVT (deep venous thrombosis) Acute Decubitus skin ulcer Acute Fall from bed, initial encounter Acute Fever Acute Hematemesis Acute Hypoxia Acute Laceration of forehead Acute Nutrition disorder Acute Pneumonia Acute Respiratory distress Acute Subarachnoid hemorrhage following injury Acute Subdural hemorrhage Acute Tachycardia Acute Tracheostomy complication Acute Vomiting Acute - ICD10 Problem Qualifiers (1) Impaired mobility and activities of daily living
[2016-11-08] MEDS: ATORVASTATIN CALCIUM 40 MG TAB TUBE SCH (19:38)
[2016-11-08] MEDS: ALPRAZolam 0.5 MG TAB TUBE SCH (19:38)
[2016-11-08] MEDS: MELATONIN 3 MG TAB TUBE SCH (19:38)
[2016-11-08] MEDS: PETROLAT,WHT/MIN OIL/SOD CHL 3.5 GM OPHT.OINT EACHEYE SCH (21:26)
[2016-11-09] MEDS: IPRATROPIUM/ALBUTEROL 3 ML DEYVIAL IH SCH ×4 (05:21→23:56)
[2016-11-09] MEDS: ACETYLCYSTEINE 10% 30 ML VIAL IH SCH ×4 (05:21→23:56)
[2016-11-09] MEDS: FAMOTIDINE 20 MG TAB TUBE SCH ×2 (09:22→19:58)
[2016-11-09] MEDS: ENOXAPARIN 40 MG/0.4 ML SYR SC SCH (09:23)
[2016-11-09] MEDS: predniSONE 10 MG TAB TUBE SCH (09:23)
[2016-11-09] MEDS: GLYCOPYRROLATE 1 MG TAB TUBE SCH ×3 (09:23→21:28)
[2016-11-09] MEDS: HYDROGEN PEROXIDE 236 ML BOTTLE TP PRN (09:23)
[2016-11-09] MEDS: SERTRALINE HCL 100 MG TAB TUBE SCH (09:24)
[2016-11-09] MEDS: TEARS/DEXTRAN 70/HYPROMELLOSE 15 ML OPHT.BTL EACHEYE PRN (09:34)
--- NOTE | 2016-11-09 15:38 | SOAPPROG ---
SOAP Progress Note Assessment/Plan: Assessment: 56 yo M with history of CVA with hemorrhagic transformation in 2015, aphasia, dysphagia, R hemiparesis, tracheostomy, PEG tube and rader catheter, hospitalized 09/26/16 with aspiration pneumonitis: * Status post hospitalization for aspiration pneumonitis. He appears to be back to his respiratory baseline. Continue tracheostomy care and pulmonary toilet to be provided by rehabilitation nurses. Mucomyst to help clear sputum. 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 Initial FIM 37 on 10/17/16; gain to 40 as of 10/21/16; stable at 40 on 10/28/16. Safe transfers by Kiera. Max assist of 2 for bed mobility. BUE ataxia; has control of gross movements with LUE. Continue Physical and Occupational Therapy to improve mobility and activities of daily living towards return to a nursing home facility at a lower level of burden of care. New power wheelchair today 11/03/16. * Dysarthria and inability to speak. Using Passey-Gilsum valve with [employer]; able to speak a few words 10/19/16; has potential for basic verbal communication. RT instructed nurse on manometry to fill trach cuff appropriately. Evaluation initiated re alternative communication devices; issues include BUE ataxia and lack of seated balance. [employer] working with OT re positioning and UE functional issues. * Diaphoresis: UA C/W UTI; diaphoresis improved after beginning ciprofloxacin . Cx Proteus with multiple resistances. D/w ID 11/04/16: most likely colonization; d/c'd Cipro. * Tracheostomy: trial of smaller trach size today 11/09/16. * Respiratory secretions. Much improved with n-acetylcysteine nebulizer starting 10/17/16. Prednisone Rx d/w supervisor inspection department Dr. Marie 10/17/16: suggests taper by 5 mg Q 3 days. Reduced from 20 mg QD to 15 mg QD on 10/18/16; reduce to 10 mg QD starting 10/23/16; reduce further to 50 mg starting 10/27/16. Will d/ c scopolamine patch; continue glycopyrrolate, 10/21/16. Increased secretions off scopolamine? Increase glycopyrrolate from 1 mg TID to 2 mg TID on 10/24/16. Increased secretions 11/09/16 with trach cuff deflated overnight; will keep inflated overnight. * Decubitus ulcers. Due to shear per wound nurse. Continue pressure relief and protective dressing. Healing. * Orthostatic hypotension: asymptomatic. Adequate hydration, no BP meds. May improve orthostatic tolerance with continued PT. * Dysphagia with G-tube feeding. Per rehabilitation nursing and hand turner. * Mild erythema R eye: to use artificial tears Resolved. Scratched L eye ? Seen by ophthalmology 10/27/16: ointment in L eye and tape shut QHS; unable to keep lid closed on his own. No corneal abrasion or ulcer. * Anticoagulation d/w 10/19/16. She is not aware of history of pulmonary embolus. She reports CVA was due to clot in leg that traveled to brain. He had cerebral hemorrhage when first put on anticoagulants; eventually was stable on subcu heparin 5000 U TID. Has been changed to enoxaparin during most recent hospitalization prior to Inpatient Rehabilitation admission. Will request records from [facility] in [place], [place] and [facility] in 07/2015. Continue enoxaparin for now. * History of gastrointestinal bleed. Continue famotidine. * Cerumen accumulation: resolved after Debrox treatment. * Dyslipidemia. Continue atorvastatin. * Constipation. Continue his laxatives as ordered out of the hospital. * History of nausea and vomiting leading to his aspiration pneumonitis. Will continue ondansetron on a p.r.n. basis. Goals include verbal communication for basic needs, augmented communication system for higher level communication, motorized wheelchair for mobility and skin integrity. Expect slow progress and a long stay. Discharge 11/11/16 to [facility] in [place], closer to . 11/09/16 15:42 Subjective: Nocomplaints. On 1 L O2 w/out dyspnea. Nurse reports increased secretions overnight and this morning with trach collar deflated. Objective: Vital Signs Temp Pulse Resp BP Pulse Ox 36.9 C 66 16 120/75 95 11/09/16 05:42 11/09/16 05:42 11/09/16 05:42 11/09/16 05:42 11/09/16 08:00 11/08/16 11/09/16 11/10/16 05:59 05:59 05:59 Intake Total 1440 2703 Output Total 1150 950 Balance 290 1753 Physical Exam - Physical Exam General Appearance: WD/WN, alert, no apparent distress Respiratory: normal breath sounds, rhonchi (expiratory LLL), No crackles, No wheezing Cardiac/Chest: No edema Skin: normal color, warm/dry Neuro/Psych: alert, normal mood/affect, motor weakness ICD10 Worksheet Patient Problems: Problems Problem Status Onset Impaired mobility and activities of daily living Acute Acute bronchitis Acute Constipation Acute Cough Acute DVT (deep venous thrombosis) Acute Decubitus skin ulcer Acute Fall from bed, initial encounter Acute Fever Acute Hematemesis Acute Hypoxia Acute Laceration of forehead Acute Nutrition disorder Acute Pneumonia Acute Respiratory distress Acute Subarachnoid hemorrhage following injury Acute Subdural hemorrhage Acute Tachycardia Acute Tracheostomy complication Acute Vomiting Acute
[2016-11-09] MEDS: ATORVASTATIN CALCIUM 40 MG TAB TUBE SCH (19:57)
[2016-11-09] MEDS: MELATONIN 3 MG TAB TUBE SCH (19:57)
[2016-11-09] MEDS: ALPRAZolam 0.5 MG TAB TUBE SCH (19:57)
[2016-11-09] MEDS: PETROLAT,WHT/MIN OIL/SOD CHL 3.5 GM OPHT.OINT EACHEYE SCH (19:58)
[2016-11-10] MEDS: IPRATROPIUM/ALBUTEROL 3 ML DEYVIAL IH SCH ×4 (05:12→22:56)
[2016-11-10] MEDS: ACETYLCYSTEINE 10% 30 ML VIAL IH SCH ×4 (05:12→23:08)
[2016-11-10] MEDS: ENOXAPARIN 40 MG/0.4 ML SYR SC SCH (08:13)
[2016-11-10] MEDS: SERTRALINE HCL 100 MG TAB TUBE SCH (08:13)
[2016-11-10] MEDS: FAMOTIDINE 20 MG TAB TUBE SCH ×2 (08:13→20:35)
[2016-11-10] MEDS: GLYCOPYRROLATE 1 MG TAB TUBE SCH ×3 (08:13→20:35)
[2016-11-10] MEDS: predniSONE 10 MG TAB TUBE SCH (08:13)
[2016-11-10] MEDS: MELATONIN 3 MG TAB TUBE SCH (20:35)
[2016-11-10] MEDS: ALPRAZolam 0.5 MG TAB TUBE SCH (20:35)
[2016-11-10] MEDS: ATORVASTATIN CALCIUM 40 MG TAB TUBE SCH (20:35)
[2016-11-10] MEDS: PETROLAT,WHT/MIN OIL/SOD CHL 3.5 GM OPHT.OINT EACHEYE SCH (20:48)
[2016-11-10] MEDS: HYDROGEN PEROXIDE 236 ML BOTTLE TP PRN (22:55)
[2016-11-11] MEDS: IPRATROPIUM/ALBUTEROL 3 ML DEYVIAL IH SCH ×4 (05:20→23:24)
[2016-11-11] MEDS: ACETYLCYSTEINE 10% 30 ML VIAL IH SCH ×4 (05:20→23:24)
[2016-11-11] MEDS: HYDROGEN PEROXIDE 236 ML BOTTLE TP PRN ×2 (05:24→21:32)
[2016-11-11] MEDS: predniSONE 10 MG TAB TUBE SCH (08:26)
[2016-11-11] MEDS: ENOXAPARIN 40 MG/0.4 ML SYR SC SCH (08:26)
[2016-11-11] MEDS: GLYCOPYRROLATE 1 MG TAB TUBE SCH ×3 (08:27→20:26)
[2016-11-11] MEDS: SERTRALINE HCL 100 MG TAB TUBE SCH (08:27)
[2016-11-11] MEDS: FAMOTIDINE 20 MG TAB TUBE SCH ×2 (08:28→20:26)
--- NOTE | 2016-11-11 10:44 | SOAPPROG ---
SOAP Progress Note Assessment/Plan: Assessment: 56 yo M with history of CVA with hemorrhagic transformation in 2015, aphasia, dysphagia, R hemiparesis, tracheostomy, PEG tube and rader catheter, hospitalized 09/26/16 with aspiration pneumonitis: * Status post hospitalization for aspiration pneumonitis. He appears to be back to his respiratory baseline. Continue tracheostomy care and pulmonary toilet to be provided by rehabilitation nurses. Mucomyst to help clear sputum. 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 Initial FIM 37 on 10/17/16; gain to 40 as of 10/21/16; stable at 42 on 10/28/16; to 43 on 11/11/16. Safe transfers by Kiera. Max assist for bed mobility. BUE ataxia; has control of gross movements with LUE. Now participating in ADLs, advanced from total assist to max assistContinue Physical and Occupational Therapy to improve mobility and activities of daily living towards return to a fpc facility at a lower level of burden of care. New power wheelchair 11/03/16. * Dysarthria and inability to speak. Using Passey-Jeanna valve with PRESS TENDER SMOKE SIGNAL; able to speak a few words 10/19/16; has potential for basic verbal communication. RT instructed nurse on manometry to fill trach cuff appropriately. Evaluation initiated re alternative communication devices; issues include BUE ataxia and lack of seated balance. PRESS TENDER SMOKE SIGNAL working with OT re positioning and UE functional issues. * Diaphoresis: UA C/W UTI; diaphoresis improved after beginning ciprofloxacin . Cx Proteus with multiple resistances. D/w ID 11/04/16: most likely colonization; d/c'd Cipro. * Tracheostomy: changed to smaller trach size 11/09/16. * Respiratory secretions. Much improved with n-acetylcysteine nebulizer starting 10/17/16. Prednisone Rx d/w editor dictionary Dr. Marie 10/17/16: suggests taper by 5 mg Q 3 days. Reduced from 20 mg QD to 15 mg QD on 10/18/16; reduce to 10 mg QD starting 10/23/16; reduce further to 50 mg starting 10/27/16. Will d/ c scopolamine patch; continue glycopyrrolate, 10/21/16. Increased secretions off scopolamine? Increase glycopyrrolate from 1 mg TID to 2 mg TID on 10/24/16. Increased secretions 11/09/16 with trach cuff deflated overnight; will keep inflated overnight. * Decubitus ulcers. Due to shear per wound nurse. Continue pressure relief and protective dressing. Healing; blanching skin on exam 11/11/16. * Orthostatic hypotension: asymptomatic. Adequate hydration, no BP meds. May improve orthostatic tolerance with continued PT. * Dysphagia with G-tube feeding. Per rehabilitation nursing and fleet manager/dispatch. * Mild erythema R eye: to use artificial tears Resolved. Scratched L eye ? Seen by ophthalmology 10/27/16: ointment in L eye and tape shut QHS; unable to keep lid closed on his own. No corneal abrasion or ulcer. * Anticoagulation d/w 10/19/16. She is not aware of history of pulmonary embolus. She reports CVA was due to clot in leg that traveled to brain. He had cerebral hemorrhage when first put on anticoagulants; eventually was stable on subcu heparin 5000 U TID. Has been changed to enoxaparin during most recent hospitalization prior to Inpatient Rehabilitation admission. Will request records from [facility] in [place], [place] and [facility] in 07/2015. Continue enoxaparin for now. * History of gastrointestinal bleed. Continue famotidine. * Cerumen accumulation: resolved after Debrox treatment. * Dyslipidemia. Continue atorvastatin. * Constipation. Continue his laxatives as ordered out of the hospital. * History of nausea and vomiting leading to his aspiration pneumonitis. Will continue ondansetron on a p.r.n. basis. Attended staffing, 15 min. D/W case mgmt, nursing, PT, OT, PRESS TENDER SMOKE SIGNAL. Discharge 11/14 to [facility] in [place], closer to , and specializes in trach care. 11/11/16 12:55 Subjective: Leakage around catheter this morning, replaced by nursing. Had increased secretion resolved with suctioning. O/W no complaints. Objective: Vital Signs Temp Pulse Resp BP Pulse Ox 36.3 C 71 18 134/82 H 92 11/11/16 08:00 11/11/16 08:00 11/11/16 08:00 11/11/16 08:00 11/11/16 08:00 11/10/16 11/11/16 11/12/16 05:59 05:59 05:59 Intake Total 3795 2148 Output Total 6205 3212 Balance 1435 -925 - Time Spent With Patient Time Spent With Patient: Greater than 35 minutes floor time today, including more than 50% of time in coordination of care during staffing meeting. Physical Exam - Physical Exam General Appearance: WD/WN, alert, no apparent distress Respiratory: No respiratory distress, No accessory muscle use Skin: normal color, warm/dry Neuro/Psych: alert, normal mood/affect, speech abnormalities (Able to speak mostly intelligible singe words, with encouragement of PRESS TENDER SMOKE SIGNAL.) ICD10 Worksheet Patient Problems: Problems Problem Status Onset Impaired mobility and activities of daily living Acute Acute bronchitis Acute Constipation Acute Cough Acute DVT (deep venous thrombosis) Acute Decubitus skin ulcer Acute Fall from bed, initial encounter Acute Fever Acute Hematemesis Acute Hypoxia Acute Laceration of forehead Acute Nutrition disorder Acute Pneumonia Acute Respiratory distress Acute Subarachnoid hemorrhage following injury Acute Subdural hemorrhage Acute Tachycardia Acute Tracheostomy complication Acute Vomiting Acute
[2016-11-11] MEDS: ATORVASTATIN CALCIUM 40 MG TAB TUBE SCH (20:25)
[2016-11-11] MEDS: ALPRAZolam 0.5 MG TAB TUBE SCH (20:26)
[2016-11-11] MEDS: PETROLAT,WHT/MIN OIL/SOD CHL 3.5 GM OPHT.OINT EACHEYE SCH (20:26)
[2016-11-11] MEDS: MELATONIN 3 MG TAB TUBE SCH (20:26)
[2016-11-12] MEDS: ACETYLCYSTEINE 10% 30 ML VIAL IH SCH ×4 (05:29→23:53)
[2016-11-12] MEDS: IPRATROPIUM/ALBUTEROL 3 ML DEYVIAL IH SCH ×4 (05:30→23:53)
[2016-11-12] MEDS: SERTRALINE HCL 100 MG TAB TUBE SCH (08:28)
[2016-11-12] MEDS: FAMOTIDINE 20 MG TAB TUBE SCH ×2 (08:28→20:40)
[2016-11-12] MEDS: GLYCOPYRROLATE 1 MG TAB TUBE SCH ×3 (08:28→20:39)
[2016-11-12] MEDS: ENOXAPARIN 40 MG/0.4 ML SYR SC SCH (08:28)
[2016-11-12] MEDS: predniSONE 10 MG TAB TUBE SCH (08:28)
--- NOTE | 2016-11-12 12:08 | SOAPPROG ---
SOAP Progress Note Assessment/Plan: Assessment: 56 yo M with history of CVA with hemorrhagic transformation in 2015, aphasia, dysphagia, R hemiparesis, tracheostomy, PEG tube and rader catheter, hospitalized 09/26/16 with aspiration pneumonitis: * Status post hospitalization for aspiration pneumonitis. He appears to be back to his respiratory baseline. Continue tracheostomy care and pulmonary toilet to be provided by rehabilitation nurses. Mucomyst to help clear sputum. 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 Initial FIM 37 on 10/17/16; gain to 40 as of 10/21/16; stable at 42 on 10/28/16; to 43 on 11/11/16. Safe transfers by Kiera. Max assist for bed mobility. BUE ataxia; has control of gross movements with LUE. Now participating in ADLs, advanced from total assist to max assist. Continue Physical and Occupational Therapy to improve mobility and activities of daily living towards return to a penitentiary facility at a lower level of burden of care. New power wheelchair 11/03/16. * Dysarthria and inability to speak. Using Passey-Jeanna valve with LEARNING AND DEVELOPMENT ANALYST; able to speak a few words 10/19/16; has potential for basic verbal communication. RT instructed nurse on manometry to fill trach cuff appropriately. Evaluation initiated re alternative communication devices; issues include BUE ataxia and lack of seated balance and his preference to continue to use spelling board. * Diaphoresis: UA C/W UTI; diaphoresis improved after beginning ciprofloxacin . Cx Proteus with multiple resistances. D/w ID 11/04/16: most likely colonization; d/c'd Cipro. * Tracheostomy: changed to smaller trach size 11/09/16. * Respiratory secretions. Much improved with n-acetylcysteine nebulizer starting 10/17/16. Prednisone Rx d/w wheel press clerk Dr. Marie 10/17/16: suggests taper by 5 mg Q 3 days. Reduced from 20 mg QD to 15 mg QD on 10/18/16; reduce to 10 mg QD starting 10/23/16; reduce further to 50 mg starting 10/27/16. Will d/ c scopolamine patch; continue glycopyrrolate, 10/21/16. Increased secretions off scopolamine? Increase glycopyrrolate from 1 mg TID to 2 mg TID on 10/24/16. Increased secretions 11/09/16 with trach cuff deflated overnight; will keep inflated overnight. * Decubitus ulcers. Due to shear per wound nurse. Continue pressure relief and protective dressing. Healing; blanching skin on exam 11/11/16. * Orthostatic hypotension: asymptomatic. Adequate hydration, no BP meds. May improve orthostatic tolerance with continued PT. * Dysphagia with G-tube feeding. Per rehabilitation nursing and senior applications analyst. * Mild erythema R eye: to use artificial tears Resolved. Scratched L eye ? Seen by ophthalmology 10/27/16: ointment in L eye and tape shut QHS; unable to keep lid closed on his own. No corneal abrasion or ulcer. * Anticoagulation d/w 10/19/16. She is not aware of history of pulmonary embolus. She reports CVA was due to clot in leg that traveled to brain. He had cerebral hemorrhage when first put on anticoagulants; eventually was stable on subcu heparin 5000 U TID. Has been changed to enoxaparin during most recent hospitalization prior to Inpatient Rehabilitation admission. Will request records from [facility] in [place], [place] and [facility] in 07/2015. Continue enoxaparin for now. * History of gastrointestinal bleed. Continue famotidine. * Cerumen accumulation: resolved after Debrox treatment. * Dyslipidemia. Continue atorvastatin. * Constipation. Continue his laxatives as ordered out of the hospital. * History of nausea and vomiting leading to his aspiration pneumonitis. Will continue ondansetron on a p.r.n. basis. Discharge 11/14/16 to [facility] in [place], closer to , and specializes in trach care. 11/12/16 12:06 Subjective: No complaints. Had increased secretions this morning, better now. Objective: Vital Signs Temp Pulse Resp BP Pulse Ox 36.5 C 72 22 H 123/72 H 94 11/12/16 05:54 11/12/16 05:54 11/12/16 05:54 11/12/16 05:54 11/12/16 05:54 11/11/16 11/12/16 11/13/16 05:59 05:59 05:59 Intake Total 2142 2060 Output Total 2400 950 Balance -252 1110 Physical Exam - Physical Exam General Appearance: WD/WN, alert, no apparent distress Respiratory: normal breath sounds, No crackles, No rhonchi, No wheezing Cardiac/Chest: regular rate, rhythm, No edema Skin: normal color, warm/dry Neuro/Psych: alert, normal mood/affect, motor weakness, speech abnormalities ICD10 Worksheet Patient Problems: Problems Problem Status Onset Impaired mobility and activities of daily living Acute Acute bronchitis Acute Constipation Acute Cough Acute DVT (deep venous thrombosis) Acute Decubitus skin ulcer Acute Fall from bed, initial encounter Acute Fever Acute Hematemesis Acute Hypoxia Acute Laceration of forehead Acute Nutrition disorder Acute Pneumonia Acute Respiratory distress Acute Subarachnoid hemorrhage following injury Acute Subdural hemorrhage Acute Tachycardia Acute Tracheostomy complication Acute Vomiting Acute
[2016-11-12] MEDS: ATORVASTATIN CALCIUM 40 MG TAB TUBE SCH (20:40)
[2016-11-12] MEDS: ALPRAZolam 0.5 MG TAB TUBE SCH (20:40)
[2016-11-12] MEDS: MELATONIN 3 MG TAB TUBE SCH (20:40)
[2016-11-12] MEDS: PETROLAT,WHT/MIN OIL/SOD CHL 3.5 GM OPHT.OINT EACHEYE SCH (20:44)
[2016-11-13] MEDS: ACETYLCYSTEINE 10% 30 ML VIAL IH SCH ×4 (05:28→23:38)
[2016-11-13] MEDS: IPRATROPIUM/ALBUTEROL 3 ML DEYVIAL IH SCH ×4 (05:28→23:38)
[2016-11-13] MEDS: GLYCOPYRROLATE 1 MG TAB TUBE SCH ×3 (07:15→23:33)
[2016-11-13] MEDS: ENOXAPARIN 40 MG/0.4 ML SYR SC SCH (07:15)
[2016-11-13] MEDS: FAMOTIDINE 20 MG TAB TUBE SCH ×2 (07:15→20:19)
[2016-11-13] MEDS: SERTRALINE HCL 100 MG TAB TUBE SCH (07:16)
[2016-11-13] MEDS: predniSONE 10 MG TAB TUBE SCH (07:16)
[2016-11-13] MEDS ORDERED: predniSONE 5 MG TAB TUBE SCH (11:32)
--- NOTE | 2016-11-13 12:54 | SOAPPROG ---
SOAP Progress Note Assessment/Plan: Assessment: 56 yo M with history of CVA with hemorrhagic transformation in 2015, aphasia, dysphagia, R hemiparesis, tracheostomy, PEG tube and rader catheter, hospitalized 09/26/16 with aspiration pneumonitis: * Status post hospitalization for aspiration pneumonitis. He appears to be back to his respiratory baseline. Continue tracheostomy care and pulmonary toilet to be provided by rehabilitation nurses. Mucomyst to help clear sputum. 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 Initial FIM 37 on 10/17/16; gain to 40 as of 10/21/16; stable at 42 on 10/28/16; to 43 on 11/11/16. Safe transfers by Kiera. Max assist for bed mobility. BUE ataxia; has control of gross movements with LUE. Now participating in ADLs, advanced from total assist to max assist. Continue Physical and Occupational Therapy to improve mobility and activities of daily living towards return to a retirement facility at a lower level of burden of care. New power wheelchair 11/03/16. * Dysarthria and inability to speak. Using Passey-Jeanna valve with LICENSED OCCUPATIONAL THERAPY ASSISTANT; able to speak a few words 10/19/16; has potential for basic verbal communication. RT instructed nurse on manometry to fill trach cuff appropriately. Evaluation initiated re alternative communication devices; issues include BUE ataxia and lack of seated balance and his preference to continue to use spelling board. * Diaphoresis: UA C/W UTI; diaphoresis improved after beginning ciprofloxacin . Cx Proteus with multiple resistances. D/w ID 11/04/16: most likely colonization; d/c'd Cipro. * Tracheostomy: changed to smaller trach size 11/09/16. * Respiratory secretions. Much improved with n-acetylcysteine nebulizer starting 10/17/16. Prednisone Rx d/w labor relations supervisor Dr. Marie 10/17/16: suggests taper by 5 mg Q 3 days. Change to 5 mg QD starting tomorrow 11/14/16, D/C after 5 days. Reduced from 20 mg QD to 15 mg QD on 10/18/16; reduce to 10 mg QD starting 10/23/16. Will d/c scopolamine patch; continue glycopyrrolate, . Increased secretions off scopolamine? Increase glycopyrrolate from 1 mg TID to 2 mg TID on 10/24/16. Increased secretions 11/09/16 with trach cuff deflated overnight; will keep inflated overnight. * Decubitus ulcers. Due to shear per wound nurse. Continue pressure relief and protective dressing. Healing; blanching skin on exam 11/11/16. * Orthostatic hypotension: asymptomatic. Adequate hydration, no BP meds. May improve orthostatic tolerance with continued PT. * Dysphagia with G-tube feeding. Per rehabilitation nursing and experimental mechanic outboard motors. * L eye 10/26/16 corneal irritation? Seen by ophthalmology 10/27/16: ointment in L eye and tape shut QHS; unable to keep lid closed on his own. No corneal abrasion or ulcer. * Anticoagulation d/w 10/19/16. She is not aware of history of pulmonary embolus. She reports CVA was due to clot in leg that traveled to brain. He had cerebral hemorrhage when first put on anticoagulants; eventually was stable on subcu heparin 5000 U TID. Has been changed to enoxaparin during most recent hospitalization prior to Inpatient Rehabilitation admission. Will request records from [facility] in [place], [place] and [facility] in 07/2015. Continue enoxaparin for now. * History of gastrointestinal bleed. Continue famotidine. * Cerumen accumulation: resolved after Debrox treatment. * Dyslipidemia. Continue atorvastatin. * Constipation. Continue his laxatives as ordered out of the hospital. * History of nausea and vomiting leading to his aspiration pneumonitis. Will continue ondansetron on a p.r.n. basis. Discharge 11/14/16 to [facility] in [place], closer to , and specializes in trach care. 11/13/16 12:51 11/13/16 12:53 Subjective: No complaints. Visiting with . Objective: Vital Signs Temp Pulse Resp BP Pulse Ox 36.9 C 72 22 H 121/79 H 94 11/13/16 05:58 11/13/16 05:58 11/13/16 05:58 11/13/16 05:58 11/13/16 05:58 11/12/16 11/13/16 11/14/16 05:59 05:59 05:59 Intake Total 2060 2773 Output Total 950 1325 Balance 1110 1448 Physical Exam - Physical Exam General Appearance: WD/WN, alert Respiratory: No respiratory distress, No accessory muscle use Cardiac/Chest: No edema Skin: normal color, warm/dry Neuro/Psych: alert, normal mood/affect ICD10 Worksheet Patient Problems: Problems Problem Status Onset Impaired mobility and activities of daily living Acute Acute bronchitis Acute Constipation Acute Cough Acute DVT (deep venous thrombosis) Acute Decubitus skin ulcer Acute Fall from bed, initial encounter Acute Fever Acute Hematemesis Acute Hypoxia Acute Laceration of forehead Acute Nutrition disorder Acute Pneumonia Acute Respiratory distress Acute Subarachnoid hemorrhage following injury Acute Subdural hemorrhage Acute Tachycardia Acute Tracheostomy complication Acute Vomiting Acute
--- NOTE | 2016-11-13 13:24 | WOCRNPDOC ---
PRECIOUS Advanced Assessment Note - Skin Integrity Problem, Advanced Assess Bilateral Buttock Dressing Type: Allevyn Life Dressing Description: Clean/Dry, Intact Exudate Amount: Scant Exudate Color: Reddish/Yellow Exudate Characteristic(s): Serosanguinous Integumentary Issue Intervention: Visualized Under Dressing Irene Wound Tissue: Blanching, Intact, Scaly (roughened scar tissue), Hyperkeratotic (slightly) Wound Bed Color: Red Wound Bed Constitution: Healed Wound Edges: Epithelizing, Scarred (except for two thin, vertical fissure-like cracks through the scar tissue) Site Odor: None Site Measurement - Head-to-Toe Length X Width X Depth (cm): L=3.3 x 2.2 x 0 w/a 2 cm thread-thin (approx 0.2mm) vertical fissure. R=4.5 x 2.5 x 0 w/a 1 cm thread-thin (approx 0.2mm) vertical fissure Skin Integrity Problem Comment: Resecured dressings after visualizing unstable ( friable) scar tisssue at bilateral buttocks. Recommended continuation of plan of care as described previously by LAKESHA Suarez in report to CRISTELA Mckeon and to Dr. Zhu.
[2016-11-13] MEDS: MELATONIN 3 MG TAB TUBE SCH (20:19)
[2016-11-13] MEDS: ATORVASTATIN CALCIUM 40 MG TAB TUBE SCH (20:19)
[2016-11-13] MEDS: ALPRAZolam 0.5 MG TAB TUBE SCH (20:19)
[2016-11-13] MEDS: PETROLAT,WHT/MIN OIL/SOD CHL 3.5 GM OPHT.OINT EACHEYE SCH (20:24)
[2016-11-13] MEDS: HYDROGEN PEROXIDE 236 ML BOTTLE TP PRN ×2 (20:30)
[2016-11-14] MEDS: IPRATROPIUM/ALBUTEROL 3 ML DEYVIAL IH SCH ×2 (05:47→11:21)
[2016-11-14] MEDS: ACETYLCYSTEINE 10% 30 ML VIAL IH SCH ×2 (05:47→11:21)
[2016-11-14 05:59] VITALS: BP 138/85; PULSE 81; RESP 18; TEMP 98.5; O2SAT 96
[2016-11-14] MEDS: BISACODYL 10 MG SUPP PR SCH ×2 (07:29→13:43)
[2016-11-14] MEDS: ENOXAPARIN 40 MG/0.4 ML SYR SC SCH (07:29)
[2016-11-14] MEDS: GLYCOPYRROLATE 1 MG TAB TUBE SCH (07:29)
[2016-11-14] MEDS: SERTRALINE HCL 100 MG TAB TUBE SCH (07:30)
[2016-11-14] MEDS: FAMOTIDINE 20 MG TAB TUBE SCH (07:30)
--- NOTE | 2016-11-14 15:10 | PDOREHIP ---
Admission IRF-DAVE - Admission - 3 Day Assessment Period Admission Date/Day 1: 10/13/16 Day 2: 10/14/16 Day 3: 10/15/16 Discharge IRF-DA[facility] - Discharge - 3 Day Assessment Period 2 Days Prior to Anticipated Discharge Date: 11/12/16 1 Day Prior to Anticipated Discharge Date: 11/13/16 Anticipated Discharge Date: 11/14/16 - Discharge Skin Conditions Unhealed Pressure Ulcer (1 or more/Stage 1 or >)-Discharge: 1. Yes # Stage 2 Pressure Ulcers-Discharge: 2 (Sacral, c/w shearing injury)
--- NOTE | 2016-11-14 16:36 | GDS ---
[f rep st] DISCHARGE SUMMARY ADMITTING DIAGNOSIS: Debility following an episode of aspiration pneumonitis. DISCHARGE DIAGNOSIS: Debility following an episode of aspiration pneumonitis. OTHER DISCHARGE DIAGNOSES: 1. History of tracheostomy. 2. Dysphagia with percutaneous endoscopic gastrostomy tube feeding. 3. Decubitus ulcers. 4. Profound debility. 5. History of hemorrhagic cerebrovascular accident. CONSULTATIONS: There was a consultation with Ophthalmology. PROCEDURES: He had change of his tracheostomy from a size 8 to a size 6. COMPLICATIONS: There were none. HISTORY/HOSPITAL COURSE: Mr. Mendez is a 56-year-old man with history of multiple strokes, including cerebellar stroke and an intracranial hemorrhage, craniotomy and [employer] shunt placement, who was a resident of [facility] since May 2016. In the interim between May and his hospitalization on 11/2016, he had had 10 hospitalizations or emergency department visits, largely for respiratory complications. On the most recent hospitalization, he was diagnosed with aspiration pneumonitis. He was treated with prednisone and pulmonary toilet with some improvement in his oxygenation, and he was transferred to inpatient rehabilitation. He had some improvement in his function. His initial Functional [place] Measure (FIM) was 37 on 10/17/2016. This was consistent with needing assistance with all aspects of mobility and activities of daily living. His transfers were done by Kiera. He required maximal assistance for bed mobility. On 11/11/2016, his FIM had advanced to 43, still requiring assistance with all aspects of mobility and activities of daily living, however, he was participating more in ADLs. He was advanced from total assist to maximum assist. A power wheelchair was obtained, and he was trained in how to navigate the hallway in his room in the power wheelchair. He was a candidate to learn sliding board transfers, which would have been done with assistance again; however, with his shearing injuries on his sacral/buttocks area, this was not attempted. Regarding tracheostomy, he had dysarthria and inability to speak. There were number trials done of alternative communication methods however, he ultimately preferred to continue using a spelling board. Barriers included bilateral upper extremity ataxia, but he was able to use his spelling board. A Passy-[place] valve was used and the tracheostomy cuff was deflated to allow use of the valve on an advancing schedule until he had a deflated cuff 24 hours a day. It was however, noted at this point that he had increased secretions in the morning, so the cuff was kept inflated overnight subsequently. History of aspiration pneumonitis. There were copious tracheal secretions. He was begun on Mucomyst nebulizers, which improved his secretions. He had a gradual prednisone taper and was still on 5 mg daily on the day of discharge. Other than episodic increased secretions, his respiratory status was stable throughout his stay. There was a period of diaphoresis. He had a positive urinalysis and urine culture grew Proteus with multiple resistances. However, he did not have strong leukocytosis indicating much of an inflammatory response, so it was concluded that the Proteus was a colonizer, and he did not complete antibiotic treatment. He had 2 days of ciprofloxacin to which the Proteus was already resistant. He had decubitus ulcers bilaterally, 1 on each proximal buttock over the sacrum. He had a pressure relief mattress and Allevyn dressing applied. These were stable. They did not heal, nor did they worsen over the course of his rehabilitation stay. He complained of irritation to the left eye. He thought he might have scratched himself. He was seen by Ophthalmology on 10/27/2016, who noted that his left eye likely does not stay closed overnight. He was treated with eye ointment in the left eye and taped the eye shut q.h.s. There was no corneal abrasion or ulcer. The patient reported relief of symptoms after this was initiated. The patient was maintained on anticoagulation with enoxaparin. A history was discussed with his . She was not aware of a history of pulmonary embolus or deep venous thrombosis, but she did think that the CVA was due to a clot in his leg that traveled to his brain. Records were requested from the [facility] regarding care in July of 2015. Records were not received to further evaluate whether or not he required continued anticoagulation. LABS AND STUDIES DURING HIS STAY: Only the urinalysis, which showed a pH of 9, 2+ leukocyte esterase, trace epithelial cells, and 1+ bacteria. Culture grew Proteus vulgaris, which was resistant to ampicillin, cefazolin, ceftriaxone, gentamicin, nitrofurantoin, tetracycline, trimethoprim/sulfamethoxazole, and was intermediate in resistance to tobramycin and levofloxacin. It was susceptible to cefoxitin, cefepime, and piperacillin/tazobactam. DISCHARGE PLAN: Condition upon discharge is good. Activity: He needs assistance with all aspects of ADLs and mobility, including Kiera transfer. Diet: He is continuing to feeding per PEG tube. Date of next appointment: He will follow up with his new attending at the assisted facility to which he is discharging. MEDICATIONS ON DISCHARGE: 1. Melatonin 3 mg per tube q.h.s. 2. Atorvastatin 40 mg per G-tube q.h.s. 3. Alprazolam 0.25 mg per tube q.h.s. 4. Sertraline 150 mg per tube daily. 5. Mucinex 400 mg per tube t.i.d. at 0800, 1600, and 2000. 6. Artificial Tears each eye q.i.d. 7. Ipratropium/albuterol 3 mL nebulizer q.i.d. at 0800, 1200, 1600, and 2000. 8. Acetaminophen 650 mg per tube q.4 hours p.r.n. 9. Polyethylene glycol 17 g per tube daily p.r.n. 10. Glycopyrrolate 1 mg per tube t.i.d. 11. Prednisone 5 mg per G-tube daily to continue for a total of 5 more days and discontinue after 11/19/2016. 12. Refresh PM ointment to each eye at h.s. 13. Nystatin powder to groin area t.i.d. p.r.n. 14. Hygiene peroxide mouth rinse b.i.d. p.r.n. 15. Famotidine 20 mg per tube b.i.d. 16. Enoxaparin 40 mg subcutaneous daily. 17. Acetylcysteine 10% nebulizer q.6 hours. ISSUES TO BE ADDRESSED AT FOLLOWUP: 1. History of aspiration pneumonitis and tracheostomy. The SNF to which he is discharging has expertise in tracheostomy care. He was begun on glycopyrrolate and his scopolamine patch was discontinued during his stay. Glycopyrrolate should be continued to facilitate mobilizing of secretions. 2. Decubitus ulcers. Continue wound care as per Wound Care orders and monitor for healing. Avoid further shearing injury and avoid continued pressure if possible. 3. Communication issues. He was able to vocalize simple words and he was using spelling board. He should have continued treatment per Speech and Language Pathology at the care home, to which he is discharging. 4. Debility. It is hoped that he can continue to make gains in his ability to assist in his mobility and activities of daily living at the care home to which he is discharged. Copy requested to: [facility] [place], [place] /[id number]/[id number]
== END 2016-11-14 13:09 | DRG 945 ==
LOC: BREH 10-13 12:25
PROVIDERS: ADMIT Internal Medicine; ATTEND Internal Medicine
PROC: F07Z4FZ Wheelchair Mobility Treatment using Assistive, Adaptive, Supportive or Protective Equipment (ICD-10-PCS; principal; 2016-10-13)
PROC: F02Z2ZZ Feeding/Eating Assessment (ICD-10-PCS; principal; 2016-10-13)
PROC: F02Z1FZ Dressing Assessment using Assistive, Adaptive, Supportive or Protective Equipment (ICD-10-PCS; principal; 2016-10-13)
PROC: F02Z3FZ Grooming/Personal Hygiene Assessment using Assistive, Adaptive, Supportive or Protective Equipment (ICD-10-PCS; principal; 2016-10-13)
PROC: F07Z8FZ Transfer Training Treatment using Assistive, Adaptive, Supportive or Protective Equipment (ICD-10-PCS; principal; 2016-10-13)
PROC: F02Z0FZ Bathing/Showering Assessment using Assistive, Adaptive, Supportive or Protective Equipment (ICD-10-PCS; principal; 2016-10-13)
DX: Z51.89 Encounter for other specified aftercare (principal); J69.0 Pneumonitis due to inhalation of food and vomit; I69.351 Hemiplegia and hemiparesis following cerebral infarction affecting right dominant side; I69.391 Dysphagia following cerebral infarction; R47.1 Dysarthria and anarthria; L89.152 Pressure ulcer of sacral region, stage 2; H01.9 Unspecified inflammation of eyelid; I10 Essential (primary) hypertension; H61.20 Impacted cerumen, unspecified ear; R61 Generalized hyperhidrosis; N40.0 Benign prostatic hyperplasia without lower urinary tract symptoms; E78.5 Hyperlipidemia, unspecified; K59.00 Constipation, unspecified; Z86.711 Personal history of pulmonary embolism; Z93.1 Gastrostomy status; Z79.01 Long term (current) use of anticoagulants; Z93.0 Tracheostomy status
CPT/HCPCS: 92507-GN; 92522-GN; 92526; 92610; 97110-GO; 97110-GP; 97112-GO; 97112-GP; 97163-GP; 97165-GO; 97530-GO; 97530-GP; 97532-GO; 97535-GO; 97542-GP; J1650